=== PATIENT | male | born 1950 | race Caucasian/White ===

== ENCOUNTER 2020-01-12 13:06 | Outpatient (REF) | payer MEDICARE, OTHER, SELFPAY | END 2020-01-12 13:07 | disposition home or self-care (01) | LOC: HO.LAB 13:06 | PROVIDERS: Visit Provider Internal Medicine | DX: Z20.828 Contact with and (suspected) exposure to other viral communicable diseases (principal) | CPT/HCPCS: C9803; U0003 ==

== ENCOUNTER 2020-03-31 15:11 | Outpatient (REF) | payer MEDICARE, OTHER, SELFPAY ==
[2020-03-31 17:00] LABS: Uric Acid 9.2 mg/dL (3.4-7.0)
[2020-03-31 17:45] LABS: Erythrocyte Sedimentation Rate 25 MM/HR (0-15)
== END 2020-03-31 15:12 | disposition home or self-care (01) ==
LOC: HO.HMGCLDS 15:11
PROVIDERS: PCP Physician Assistant; Visit Provider Podiatrist
DX: M10.072 Idiopathic gout, left ankle and foot (principal)
CPT/HCPCS: 36415; 84550; 85652

== ENCOUNTER 2020-09-21 08:23 | Outpatient (REF) | payer MEDICARE, OTHER, SELFPAY ==
--- NOTE | ~2020-09-21 | US_ITS ---
EXAMINATION: US RETROPERITONEAL LIMITED (AORTA) CLINICAL INFORMATION: Screening for cardiovascular disorders. COMPARISON: None. TECHNIQUE: Grayscale, color Doppler and spectral Doppler evaluation of the abdominal aorta. FINDINGS: The aorta is normal. The measurements of the aorta in maximum AP and transverse dimensions respectively are as follows: PROXIMAL: 2.4 x 2.3 cm. MID: 1.5 x 1.2 cm. DISTAL: 1.6 x 1.5 cm. PSV: 154 The measurements of the common iliac arteries in maximum AP dimension are as follows: RIGHT COMMON ILIAC ARTERY: 1.0 cm. LEFT COMMON ILIAC ARTERY: 1.1 cm. US/US abdominal aortic aneurysm IMPRESSION: No evidence of abdominal aortic aneurysm.
== END 2020-09-21 08:24 | disposition home or self-care (01) ==
LOC: HO.US 08:23
PROVIDERS: Visit Provider Physician Assistant
DX: Z13.6 Encounter for screening for cardiovascular disorders (principal)
CPT/HCPCS: 76706

== ENCOUNTER 2020-11-17 13:46 | Outpatient (REF) | payer MEDICARE, OTHER, SELFPAY | END 2020-11-17 13:47 | disposition home or self-care (01) | LOC: HO.LNP 13:46 | PROVIDERS: Visit Provider Internal Medicine | DX: Z20.822 Contact with and (suspected) exposure to COVID-19 (principal); J06.9 Acute upper respiratory infection, unspecified | CPT/HCPCS: U0003; U0005 ==

== ENCOUNTER 2021-01-11 09:40 | Outpatient (REF) | payer MEDICARE, OTHER, SELFPAY ==
[2021-01-11 10:50] LABS: Hematocrit 42.8 % (42.0-52.0); Hemoglobin 14.8 g/dl (14.0-18.0); Mean Corpuscular HGB Conc 34.6 g/dl (31.0-36.0); Mean Corpuscular Hemoglobin 31.8 pg (27.0-33.0); Mean Corpuscular Volume 91.8 fL (80.0-98.0); Mean Platelet Volume 9.3 fL (9.4-12.4); Platelet Count 251 X10*3/uL (160-400); Red Blood Count 4.66 X10*6/uL (4.60-5.80); Red Cell Distribution Width 12.2 % (11.0-16.0); White Blood Count 8.7 X10*3/uL (4.8-10.8)
[2021-01-11 11:00] LABS: Estimated Average Glucose 100 mg/dL; Hemoglobin A1c % 5.1 %
[2021-01-11 11:11] LABS: Microalbum/Creatinine Ratio Ur 4.6 ug/mg cr
[2021-01-11 11:28] LABS: Alanine Aminotransferase 20 U/L (0-40); Albumin Level 4.3 g/dL (3.5-5.0); Alkaline Phosphatase 87 U/L (39-117); Anion Gap 11 (12-20); Aspartate Amino Transferase 18 U/L (5-37); Bilirubin Total 0.6 mg/dL (0.0-1.0); Blood Urea Nitrogen 21 mg/dL (9-16); Calcium 9.6 mg/dL (8.4-10.2); Carbon Dioxide 26 mmol/L (22-29); Chloride 106 mmol/L (96-108); Cholesterol 122 mg/dL; Estimated Glomerular Filt Rate > 60; Glucose Fasting 98 mg/dL (60-99); HDL Cholesterol 31 mg/dL; LDL Cholesterol Calculated 63 mg/dl; Potassium 4.1 mmol/L (3.3-5.1); Sodium 139 mmol/L (135-145); Total Protein 7.2 g/dL (6.5-8.0); Triglycerides 142 mg/dL
[2021-01-11 11:36] LABS: TSH reflex Free T4 0.97 uIU/mL (0.32-4.0)
== END 2021-01-11 09:41 | disposition home or self-care (01) ==
LOC: HO.10HDL 09:40
PROVIDERS: Visit Provider Physician Assistant
DX: I10 Essential (primary) hypertension (principal); E78.5 Hyperlipidemia, unspecified
CPT/HCPCS: 36415; 80053; 80061; 82043; 83036; 84443; 85027

== ENCOUNTER → 2021-06-15 09:04 | Outpatient (REF) | payer MEDICARE, SELFPAY ==
--- NOTE | 2021-06-15 09:12 | ECG_ITS ---
Test Reason : HTN Blood Pressure : / mmHG Vent. Rate : 071 BPM Atrial Rate : 071 BPM P-R Int : 160 ms QRS Dur : 120 ms QT Int : 420 ms P-R-T Axes : 032 -41 060 degrees QTc Int : 456 ms Normal sinus rhythm Left axis deviation Right bundle branch block Abnormal ECG When compared with ECG of 01-APR-2009 03:44, Right bundle branch block is now Present Referred By: Jonathan Varghese Electronically Signed By:JOELLE JONES MD
== END ==
LOC: HO.CARD 09:04
PROVIDERS: PCP Physician Assistant; Visit Provider Physician Assistant
DX: I10 Essential (primary) hypertension (principal)
CPT/HCPCS: 93005

== ENCOUNTER 2021-12-21 09:25 | Outpatient (REF) | payer MEDICARE, SELFPAY ==
[2021-12-21 10:21] LABS: Hematocrit 41.7 % (42.0-52.0); Hemoglobin 14.1 g/dl (14.0-18.0); Mean Corpuscular HGB Conc 33.8 g/dl (31.0-36.0); Mean Corpuscular Hemoglobin 31.5 pg (27.0-33.0); Mean Corpuscular Volume 93.3 fL (80.0-98.0); Mean Platelet Volume 9.1 fL (9.4-12.4); Platelet Count 236 X10*3/uL (160-400); Red Blood Count 4.47 X10*6/uL (4.60-5.80); Red Cell Distribution Width 11.9 % (11.0-16.0)
[2021-12-21 10:39] LABS: Alanine Aminotransferase 18 U/L (0-40); Albumin Level 4.4 g/dL (3.5-5.0); Alkaline Phosphatase 92 U/L (39-117); Anion Gap 14 (12-20); Aspartate Amino Transferase 20 U/L (5-37); Bilirubin Total 0.7 mg/dL (0.0-1.0); Blood Urea Nitrogen 29 mg/dL (9-16); Calcium 9.7 mg/dL (8.4-10.2); Carbon Dioxide 25 mmol/L (22-29); Chloride 107 mmol/L (96-108); Cholesterol 132 mg/dL; Estimated Glomerular Filt Rate 53; Glucose Fasting 97 mg/dL (60-99); HDL Cholesterol 32 mg/dL; LDL Cholesterol Calculated 71 mg/dl; Potassium 4.4 mmol/L (3.3-5.1); Sodium 142 mmol/L (135-145); Total Protein 7.3 g/dL (6.5-8.0); Triglycerides 146 mg/dL
[2021-12-21 11:03] LABS: Creatinine Urine 116.15 mg/dL; Microalbum/Creatinine Ratio Ur 5.1 ug/mg cr
== END 2021-12-21 09:26 | disposition home or self-care (01) ==
LOC: HO.10HDL 09:25
PROVIDERS: Visit Provider Physician Assistant
DX: I10 Essential (primary) hypertension (principal); E78.2 Mixed hyperlipidemia
CPT/HCPCS: 36415; 80053; 80061; 82043; 85027

== ENCOUNTER 2022-03-15 09:39 | Outpatient (REF) | payer MEDICARE, SELFPAY ==
[2022-03-15 11:40] LABS: Uric Acid 8.7 mg/dL (3.4-7.0)
[2022-03-15 11:58] LABS: Erythrocyte Sedimentation Rate 30 MM/HR (0-15)
== END 2022-03-15 09:40 | disposition home or self-care (01) ==
LOC: HO.10HDL 09:39
PROVIDERS: Absent Provider Physician Assistant; Visit Provider Podiatrist
DX: M10.072 Idiopathic gout, left ankle and foot (principal)
CPT/HCPCS: 36415; 84550; 85652

== ENCOUNTER 2022-06-28 08:52 | Outpatient (REF) | payer MEDICARE, SELFPAY ==
[2022-06-28 13:49] LABS: Hematocrit 43.2 % (42.0-52.0); Hemoglobin 14.3 g/dl (14.0-18.0); Mean Corpuscular HGB Conc 33.1 g/dl (31.0-36.0); Mean Corpuscular Hemoglobin 31.4 pg (27.0-33.0); Mean Corpuscular Volume 94.7 fL (80.0-98.0); Mean Platelet Volume 9.5 fL (9.4-12.4); Platelet Count 236 X10*3/uL (160-400); Red Blood Count 4.56 X10*6/uL (4.60-5.80); Red Cell Distribution Width 12.3 % (11.0-16.0); White Blood Count 7.5 X10*3/uL (4.8-10.8)
[2022-06-28 14:17] LABS: Alanine Aminotransferase 30 U/L (0-40); Albumin Level 4.2 g/dL (3.5-5.0); Alkaline Phosphatase 97 U/L (39-117); Anion Gap 14 (12-20); Aspartate Amino Transferase 26 U/L (5-37); Bilirubin Total 1.2 mg/dL (0.0-1.0); Blood Urea Nitrogen 25 mg/dL (9-16); Carbon Dioxide 26 mmol/L (22-29); Chloride 108 mmol/L (96-108); Cholesterol 138 mg/dL; Estimated Glomerular Filt Rate 58; Glucose Fasting 92 mg/dL (60-99); HDL Cholesterol 32 mg/dL; LDL Cholesterol Calculated 67 mg/dl; Potassium 4.8 mmol/L (3.3-5.1); Sodium 143 mmol/L (135-145); Total Protein 7.2 g/dL (6.5-8.0); Triglycerides 196 mg/dL
[2022-06-28 14:36] LABS: TSH reflex Free T4 0.99 uIU/mL (0.32-4.0)
== END 2022-06-28 08:53 | disposition home or self-care (01) ==
LOC: HO.10HDL 08:52
PROVIDERS: Visit Provider Physician Assistant
DX: I10 Essential (primary) hypertension (principal); E78.2 Mixed hyperlipidemia
CPT/HCPCS: 36415; 80053; 80061; 84443; 85027

== ENCOUNTER 2022-10-02 08:05 | Outpatient (AMB) | payer MEDICARE, SELFPAY ==
--- NOTE | 2022-10-02 08:34 | AM.OFFWIN_ITS ---
Intake Vital Signs 10/02/22 08:37 Height 5 ft 9 in BP 140/62 H Blood Pressure Location Lt brachial Position Sitting Pulse 80 Pulse Source Pulse Oximeter Temp 97.8 F Temp Source Temporal Artery Scan Pulse Oximetry (%) 98 Oxygen Delivery Method Room Air Intake Visit Reasons: EP ?ear/sinus infection (lobby) Intake Note: Pt is here c/o cold symptoms. Pt has c/o ear discomfort, stuffy nose, and congestion. Patient Tobacco Use Status: Never used Tobacco Allergies No Known Allergies Allergy (Verified 10/02/22 08:56) Medication List - Last Reconciled 10/02/22 by Cristian Sanchez MD atorvastatin 40 mg PO DAILY 90 days carvedilol 6.25 mg PO BID cholecalciferol (vitamin D3) 50 mcg PO DAILY lisinopril 40 mg PO DAILY 90 days omeprazole 20 mg PO DAILY triamterene-hydrochlorothiazid 37.5-25 mg 1 cap PO DAILY 90 days verapamil ER 240 mg PO DAILY HPI EP ?ear/sinus infection (lobby) HPI Details 72-year-old male presents to the office for a sick visit. Patient presents with symptoms of sore throat, postnasal drip and left ear congestion. He also is unable to hear from the right ear. [facility] Medical History Gout Surgical History History of cholecystectomy Family History Father No problems noted. Mother No problems noted. 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 Tympanic membrane not visualized. Head: Yes normal to inspection Eyes General: appearance normal, both eyes and all related structures Neck Neck: Yes normal visual inspection Chest Chest palpation & inspection: normal palpation of entire chest wall Resp Effort & Inspection: normal respiratory effort Neuro General: patient oriented x3 Office Procedures Cerumen Removal From which ear canal was the cerumen removed: bilateral Removal: irrigation and cerumen loop/spoon Notes: patient tolerated procedure well [id number] Wax Removal by Spoon/Curette Assessment & Plan Assessment & Plan (1) Upper respiratory tract infection: Code(s): J06.9 - Acute upper respiratory infection, unspecified Plan: Increase fluid intake. Tylenol for aches and pains. If symptoms worsen, follow-up here for a recheck. Flonase added to the regimen. No antibiotics needed. Patient tolerated the ear cleaning procedure well. Orders: Orders AMB Cerumen Removal Today H61.23 - Impacted cerumen, bilateral Coding Level of Care Code Est Pt Level 3 (75252) Diagnoses Upper respiratory tract infection J06.9 CPT Codes Office Procedure - CPT: 24144-Bbg Wax Removal by Spoon/Curette ([id number])
[2022-10-02 08:37] VITALS: BP 140/62; PULSE 80; TEMP 36.6; O2SAT 98
== END 2022-10-02 10:00 | disposition home or self-care (01) ==
PROVIDERS: PCP Physician Assistant; Visit Provider Internal Medicine
DX: J06.9 Acute upper respiratory infection, unspecified (principal); H61.23 Impacted cerumen, bilateral
CPT/HCPCS: 69210; 99213

== ENCOUNTER 2022-10-11 08:23 | Outpatient (AMB) | payer MEDICARE, SELFPAY ==
--- NOTE | 2022-10-11 08:27 | MHC.OFFWIV ---
Intake Vital Signs 10/11/22 08:31 Weight 170 lb BP 140/80 H Blood Pressure Location Rt brachial Pulse 74 Pulse Source Pulse Oximeter Temp 97.8 F Temp Source Temporal Artery Scan Pulse Oximetry (%) 98 Oxygen Delivery Method Room Air Intake Visit Reasons: EP, Cough, Congestion (masked) Intake Note: Patient here because he came in last week with same symptoms. He has a cough, slight chest congestion, raspy voice. Patient Tobacco Use Status: Never used Tobacco Allergies No Known Allergies Allergy (Verified 10/11/22 08:45) Medication List - Last Reconciled 10/11/22 by Cristian Sanchez MD atorvastatin 40 mg PO DAILY 90 days azithromycin take 500 mg today (day 1), then 250 mg for 4 days (days 2-5) PO carvedilol 6.25 mg PO BID cholecalciferol (vitamin D3) 50 mcg PO DAILY lisinopril 40 mg PO DAILY 90 days omeprazole 20 mg PO DAILY triamterene-hydrochlorothiazid 37.5-25 mg 1 cap PO DAILY 90 days verapamil ER 240 mg PO DAILY Do you need a note to return to daycare/school/sports/work: No HPI EP, Cough, Congestion (masked) HPI Details Patient presents for a sick visit. Reporting symptoms of sinus congestion, sore throat and difficulty swallowing. Low-grade fever. No family member is sick. No recent travel. Patient reports symptoms of malaise and fatigue. [facility] Medical History Gout Surgical History History of cholecystectomy Family History Father No problems noted. Mother No problems noted. 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 Cognitive needs: No Hearing needs: No Vision needs: Yes Physical Exam Vital Signs: Last Vital Signs Temp 97.8 F 10/11/22 08:31 Pulse 74 10/11/22 08:31 BP 140/80 H 10/11/22 08:31 Pulse Ox 98 10/11/22 08:31 Oxygen Delivery Method Room Air 10/11/22 08:31 Const General: cooperative and healthy appearing Nutritional Appearance: well nourished Orientation/consciousness: patient oriented x3 Limitations: no limitations HEENT Head: Yes normal to inspection Eyes General: appearance normal, both eyes and all related structures Neck Neck: Yes normal visual inspection Chest Chest palpation & inspection: normal palpation of entire chest wall Resp Effort & Inspection: normal respiratory effort Neuro General: patient oriented x3 Assessment & Plan Assessment & Plan (1) Upper respiratory tract infection: Code(s): J06.9 - Acute upper respiratory infection, unspecified Plan: Antibiotics ordered. Increase fluid intake. Tylenol for aches and pains. If symptoms worsen, follow-up here for a recheck. Medications: New azithromycin take 500 mg today (day 1), then 250 mg for 4 days (days 2-5) PO 6 tabs 0RF Coding Level of Care Code Est Pt Level 3 (61448) Diagnoses Upper respiratory tract infection J06.9
[2022-10-11 08:31] VITALS: BP 140/80; PULSE 74; TEMP 36.6; O2SAT 98
== END 2022-10-11 09:21 | disposition home or self-care (01) ==
PROVIDERS: PCP Physician Assistant; Visit Provider Internal Medicine
DX: J06.9 Acute upper respiratory infection, unspecified (principal)
CPT/HCPCS: 99213

== ENCOUNTER 2022-10-24 08:34 | Outpatient (AMB) | payer MEDICARE, SELFPAY ==
--- NOTE | 2022-10-24 09:03 | AM.OFFWIN_ITS ---
Intake Vital Signs 10/24/22 09:04 Height 5 ft 9 in Weight 75.75 kg BMI 24.7 BP 130/60 Blood Pressure Location Rt brachial Position Sitting Pulse 75 Pulse Source Pulse Oximeter Temp 96.9 F Pulse Oximetry (%) 96 Oxygen Delivery Method Room Air Intake Visit Reasons: EST/cough/chest alfonzo/3 weeks(masked lobby) Intake Note: Pt is here c/o bad cough, chest congestion for the last three weeks. Patient Tobacco Use Status: Never used Tobacco Allergies No Known Allergies Allergy (Verified 10/24/22 09:06) Do you need a note to return to daycare/school/sports/work: No HPI HPI Comments History of Present Illness Details 925 72-year-old male history of hyperlipidemia, hypertension, gout presenting with productive cough, fatigue, malaise, myalgias for past 2-3 weeks worsening. Patient reports it seems to not be going away, NIH is lingering. Patient took a z pack a few weeks ago w/ little to no relief. Reports subjective chills common no fevers. Denies chest pain, shortness of breath, nausea, vomiting, abdominal pain, headache, vision changes, dizziness, weakness. at home sick w/ similar sx Physical exam significant for reath sounds with faint crackles to right lower lobe.? Slight expiratory wheezing bilaterally This is likely bronchitis versus upper respiratory infection. Unlikely PE, pneumonia, ACS, no signs of dissection Plan antibiotics, prednisone, albuterol. Educated patient on diagnosis and treatment plan, answered all question, patient verbalizes understanding. At this time patient will be discharged home, advised to return with new or worsening symptoms. Educated on worrisome signs and symptoms and when to return. At this time I feel comfortable discharge home. [facility] Medical History Gout Surgical History History of cholecystectomy Family History Father No problems noted. Mother No problems noted. 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 Cognitive needs: No Hearing needs: No Vision needs: Yes Review of Systems Const Details: Constitutional : No Weight loss, No Fever, No Chills, + Fatigue, + Malaise ENT/Mouth : No sore throat, No Rhinorrhea Eyes: No Eye Pain, No Swelling, No Redness Cardiovascular : No Chest Pain, No SOB, No Dyspnea on Exertion, No Orthopnea, No Edema, No Palpitations Respiratory : + Cough, + Sputum, No Wheezing Gastrointestinal : No Nausea, No Vomiting, No Diarrhea, No Constipation, No abdominal Pain, No Hematochezia, No Melena Genitourinary : No Dysuria, No Urinary Frequency, No Hematuria, Musculoskeletal : No joint pain, No Myalgias, No Joint Swelling Skin : No Skin Lesions, No rash Neuro : No Weakness, No Numbness, No Dizziness, No Headache Psych : No Anxiety/Panic, No Depression All other systems reviewed and are negative All systems reviewed & are unremarkable except as noted in HPI and below Physical Exam Vital Signs: Last Vital Signs Temp 96.9 F 10/24/22 09:04 Pulse 75 10/24/22 09:04 BP 130/60 10/24/22 09:04 Pulse Ox 96 10/24/22 09:04 Oxygen Delivery Method Room Air 10/24/22 09:04 BMI result Body Mass Index 24.7 Vital signs stable Appearance: Alert.? Oriented X3.? No acute distress.? Head: Normocephalic, atraumatic, no step-offs or deformities Eyes: Pupils equal, round and reactive to light.? ENT: Pharynx normal.? Moderate not cerumen in bilateral ears however not completely impacted. No pain with manipulation of external ears bilaterally. No mastoid tenderness. Neck: Normal inspection.? Neck supple.? CVS: Normal heart rate and rhythm.? Pulses normal.? Respiratory: No respiratory distress.? Breath sounds with faint crackles to right lower lobe.? Slight expiratory wheezing bilaterally Abdomen: Soft and nontender.? Skin: Skin warm and dry.? Normal skin color.? Normal skin turgor.? Extremities: No lower extremity edema.? No calf ttp. 5/5 strength to bilateral upper and lower extremities Neuro: Oriented X 3.? No motor deficit.? No sensory deficit. CN 2-12 intact Assessment & Plan Assessment & Plan (1) Bronchitis: Code(s): J40 - Bronchitis, not specified as acute or chronic Plan Take your medications as prescribed. If you were prescribed antibiotics today, it is important that you take your medication to their entirety, do not skip any doses, do not finish them early. Follow-up with your primary care provider this week. Return to the emergency department with new or worsening symptoms. Such as fevers, chills, chest pain, shortness of breath, nausea, vomiting, dizziness, headache, vision changes, lethargy In case of emergency call 911 Orders: Orders SARS-CoV2/FLU/RSV Today B34.9 - Viral infection, unspecified Medications: New prednisone 40 mg (2 x 20 mg) PO DAILY 5 days 10 tabs 0RF doxycycline hyclate 100 mg PO BID 7 days 14 caps 0RF albuterol sulfate 90 mcg/actuation 2 puffs inhalation Q6H PRN 6.7 grams 0RF shortness of breath or wheezing Coding Level of Care Code Est Pt Level 3 (02847) Diagnoses Bronchitis J40
[2022-10-24 09:04] VITALS: BP 130/60; PULSE 75; TEMP 36.1; O2SAT 96; BMI 24.7
== END 2022-10-24 10:21 | disposition home or self-care (01) ==
PROVIDERS: PCP Physician Assistant; Visit Provider Physician Assistant
DX: J40 Bronchitis, not specified as acute or chronic (principal)
CPT/HCPCS: 99213

== ENCOUNTER 2022-10-24 09:34 | Outpatient (REF) | payer MEDICARE, SELFPAY ==
[2022-10-24 14:56] LABS: Influenza A PCR NEGATIVE (Negative); Influenza B PCR NEGATIVE (Negative); Resp Syncy Virus RNA Qual PCR NEGATIVE (Negative); SARS COV2 PCR INHOUSE POSITIVE (Negative)
== END 2022-10-24 09:35 | disposition home or self-care (01) ==
LOC: HO.LAB 09:34
PROVIDERS: Visit Provider Physician Assistant
DX: Z20.822 Contact with and (suspected) exposure to COVID-19 (principal)
CPT/HCPCS: 0241U

== ENCOUNTER 2023-01-01 09:25 | Outpatient (REF) | payer MEDICARE, SELFPAY ==
[2023-01-01 10:53] LABS: Hematocrit 41.2 % (42.0-52.0); Hemoglobin 13.9 g/dl (14.0-18.0); Mean Corpuscular HGB Conc 33.7 g/dl (31.0-36.0); Mean Corpuscular Hemoglobin 31.1 pg (27.0-33.0); Mean Corpuscular Volume 92.2 fL (80.0-98.0); Platelet Count 238 X10*3/uL (160-400); Red Blood Count 4.47 X10*6/uL (4.60-5.80); Red Cell Distribution Width 12.1 % (11.0-16.0); White Blood Count 7.4 X10*3/uL (4.8-10.8)
[2023-01-01 11:18] LABS: Alanine Aminotransferase 18 U/L (0-40); Albumin Level 4.1 g/dL (3.5-5.0); Alkaline Phosphatase 90 U/L (39-117); Anion Gap 13 (12-20); Aspartate Amino Transferase 20 U/L (5-37); Bilirubin Total 0.6 mg/dL (0.0-1.0); Blood Urea Nitrogen 18 mg/dL (9-16); Calcium 9.5 mg/dL (8.4-10.2); Carbon Dioxide 24 mmol/L (22-29); Chloride 107 mmol/L (96-108); Cholesterol 116 mg/dL (<200); Estimated Glomerular Filt Rate > 60; Glucose Fasting 102 mg/dL (60-99); HDL Cholesterol 34 mg/dL (>40); LDL Cholesterol Calculated 60 mg/dL (<100); Potassium 3.9 mmol/L (3.3-5.1); Sodium 140 mmol/L (135-145); Total Protein 7.3 g/dL (6.5-8.0); Triglycerides 112 mg/dL (<150)
[2023-01-01 11:21] LABS: Creatinine Urine 160.92 mg/dL; Microalbum/Creatinine Ratio Ur 6.8 ug/mg cr (<30)
== END 2023-01-01 09:26 | disposition home or self-care (01) ==
LOC: HO.10HDL 09:25
PROVIDERS: Visit Provider Physician Assistant
DX: I10 Essential (primary) hypertension (principal); E78.2 Mixed hyperlipidemia
CPT/HCPCS: 36415; 80053; 80061; 82043; 82570; 85027

== ENCOUNTER 2023-01-04 14:42 | Outpatient (AMB) | payer MEDICARE, SELFPAY ==
[2023-01-04 14:43] VITALS: BP 158/80; PULSE 59; O2SAT 68; BMI 24.5
--- NOTE | 2023-01-04 14:43 | A.OFFPC_ITS ---
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 Accompanied by: Self / Same As Patient Allergies No Known Allergies Allergy (Verified 01/04/23 14:56) Medication List - Last Reconciled 01/04/23 by Jonathan Varghese PA-C atorvastatin 40 mg PO DAILY 90 days carvedilol 6.25 mg PO BID cholecalciferol (vitamin D3) 50 mcg PO DAILY lisinopril 40 mg PO DAILY 90 days omeprazole 20 mg PO DAILY triamterene-hydrochlorothiazid 37.5-25 mg 1 cap PO DAILY 90 days verapamil ER 240 mg PO DAILY Tobacco use date assessed: 06/29/22 Fall risk assessment: No Falls in past year Last assessed Fall Risk: 01/04/23 Dental Screening Dental Screen Date: 01/04/23 Did you have a dental visit in the last 12 months?: Yes Did you have a dental problem in the last 6 months where you did not have access to dental care?: No Was dental information given to patient?: Patient has dentist HPI f/u HTN/ HLD HPI Details Patient is a 72-year-old male here today for follow-up visit.? Patient has a past medical history significant for hypertension, hyperlipidemia, family history of coronary artery disease, BPH. Concern--> reports he has been under more stress and dealing with more depression as of late due to recent use his being diagnosed with stage I dementia. He is contemplating being treated for depression with a low-dose medication though at this time will hold off and try nonpharmacological . Hypertension:? Blood pressure elevated today in office. He reports that home blood pressures are quite stable. He does have an element of white coat hypertension.? Denies any headaches, vision issues, chest discomforts .. BPH:? Patient is followed by Urology and gets his PSA checked any yearly basis.? Recent PSA slightly higher than previous. He does report having history benign microscopic hematuria .. Hyperlipidemia:? Patient's most recent lipid panels showing acceptable total cholesterol and LDL.? Continues to have low HDL.? He reports he continues to r li his bike as his main form of physical activity.? Continues on statin therapy without side effect . Laboratory Tests 01/01/23 09:30 RBC 4.47 L Hgb 13.9 L Creatinine 1.08 Fasting Glucose 102 H Cholesterol 116 LDL Cholesterol, C alc 60 Urine Microalbumin 11.0 [facility] Medical History Gout Surgical History History of cholecystectomy Family History Father No problems noted. Mother No problems noted. 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 Marky Giles, Helene Beebe, Kong Simpson and colleagues, with an educational sweetie from [employer]. Review of Systems Const Denies headache(s) Eyes Denies loss of vision ENT Denies vertigo, Denies dizziness, Denies headache(s) and Denies sore throat Card Denies chest pain, Denies leg edema and Denies lightheadedness Resp Denies cough, Denies hemoptysis and Denies wheezing GI Denies abdominal pain, Denies melena, Denies constipation, Denies diarrhea and Denies vomiting Denies dysuria, Denies urinary frequency and Denies urinary urgency Musc Denies arthralgias, Denies joint swelling, Denies numbness and Denies tingling Neuro Denies Abnormal speech present, Denies behavioral changes, Denies vertigo, Denies dizziness, Denies headache(s), Denies loss of vision, Denies memory loss, Denies numbness and Denies tingling Psych Denies anxiety, Denies behavioral changes, Denies depression, Denies memory loss and Denies panic attacks Frankie/Lymph Denies easy bleeding and Denies easy bruising Aller/Immun Denies wheezing Physical exam (Primary Care) Vital Signs: Last Vital Signs Pulse 59 01/04/23 14:43 BP 158/80 H 01/04/23 14:43 Pulse Ox 68 L 01/04/23 14:43 Oxygen Delivery Method Room Air 01/04/23 14:43 BMI result Body Mass Index 24.5 Tobacco/Smoking Status: Tobacco use Status Tobacco use date assessed 06/29/22 01/04/23 14:44 Patient Tobacco Use Status Never used Tobacco 01/04/23 14:44 e-Cigarette/Vaping Use Never Used 01/04/23 14:44 Thrive Assessment: Date of Thrive Assessment Date Thrive assessed 06/29/22 01/04/23 14:44 Const General: healthy appearing, no acute distress, alert and awake Nutritional Appearance: well nourished Orientation/consciousness: oriented to person, oriented to place and oriented to time HENMT Ears: TM's normal bilaterally General nose exam: Normal nasal mucous membranes and turbinates present Eyes Conjunctivae: conjunctivae normal Sclerae: sclerae normal Pupils: Equal, round and reactive pupils present Neck Neck: Yes no lymphadenopathy and Yes no JVD Thyroid: Thyroid normal Carotids: no bruits Resp Effort & Inspection: normal respiratory effort and not tachypneic Auscultation: no crackles, no rales, no rhonchi and no wheezes Cardio Rate: regular rate Rhythm: regular rhythm Heart sounds: no murmurs and normal S1 and S2 GI Palpation (GI): Soft to palpation, nontender, no hepatomegaly and no splenomegaly Auscultation: normal bowel sounds Skin General skin exam: no rashes or lesions noted and dry skin Neuro General: oriented to person, oriented to place and oriented to time Cranial nerves: Yes Equal, round and reactive pupils present Speech: No Abnormal speech present Gait exam (Neuro): Normal gait present Motor exam (neuro): no tremor noted Extrem Right upper extremity: full ROM Left upper extremity: full ROM Right lower extremity: full ROM; no edema Left lower extremity: full ROM; no edema Psych Mental Status: mental status grossly normal Speech and movement: Normal speech and movement present Affect: normal affect Attitude: cooperative Thought process: Normal thought process present Assessment and Plan Assessment & Plan (1) HLD (hyperlipidemia): Code(s): E78.5 - Hyperlipidemia, unspecified Qualifiers: Hyperlipidemia type: mixed hyperlipidemia Qualified Code(s): E78.2 - Mixed hyperlipidemia Plan: Patient continues on statin therapy with good effect. Most recent lipid panel showing appropriate LDL and total cholesterol. Goal LDL to be below 130. (2) HTN (hypertension): Code(s): I10 - Essential (primary) hypertension Qualifiers: Hypertension type: essential hypertension Qualified Code(s): I10 - Essential (primary) hypertension Plan: Patient's blood pressure elevated today in office. He has been dealing with some anxiety and depression due to recent news his has stage I dementia.. Will continue his antihypertensive med regime for now, advised to monitor blood pressure at home over the next few weeks and if still elevated over 140/90 will consider increasing blood pressure medication doses.. Goal blood to be below 140/90. (3) CHAPARRO (generalized anxiety disorder): Code(s): F41.1 - Generalized anxiety disorder Plan: Seems to be suffering with anxiety and some depression. He does recall having melancholic moods over his life. Has never been treated for anxiety depression. At this time will hold off on starting medication, will follow-up in 6 weeks and if still exhibiting signs of anxiety depression will consider low-dose SSRI. Orders: Orders Lipid Panel 6 Months E78.2 - Mixed hyperlipidemia Microalbumin, Random (w Creat) 6 Months I10 - Essential (primary) hypertension Prostate Specific Antigen Scr 6 Months I10 - Essential (primary) hypertension, Z12.5 - Encounter for screening for malignant neoplasm of prostate Comprehensive [place]. Panel Fast 6 Months I10 - Essential (primary) hypertension Coding Level of Care Code Est Pt Level 4 (47637) Diagnoses Mixed hyperlipidemia E78.2 Hyperlipidemia type: mixed hyperlipidemia Essential hypertension I10 Hypertension type: essential hypertension CHAPARRO (generalized anxiety disorder) F41.1
== END 2023-01-04 15:27 | disposition home or self-care (01) ==
PROVIDERS: Visit Provider Physician Assistant
DX: E78.2 Mixed hyperlipidemia (principal); I10 Essential (primary) hypertension; F41.1 Generalized anxiety disorder
CPT/HCPCS: 99214

== ENCOUNTER 2023-01-23 08:01 | Outpatient (AMB) | payer MEDICARE, SELFPAY ==
--- NOTE | 2023-01-23 08:06 | AM.OFFWIN_ITS ---
Intake Vital Signs 01/23/23 08:08 Height 5 ft 9 in Weight 167 lb BMI 24.7 BP 138/62 Blood Pressure Location Lt brachial Pulse 76 Pulse Source Pulse Oximeter Temp 97.8 F Temp Source Oral Pulse Oximetry (%) 98 Oxygen Delivery Method Room Air Intake Visit Reasons: EST/stomach bug(lobby masked) Intake Note: Pt is here today c/o diarrhea and nausea x3days no vomiting Patient Tobacco Use Status: Never used Tobacco Allergies No Known Allergies Allergy (Verified 01/23/23 08:19) Medication List - Last Reconciled 01/23/23 by Cristian Sanchez MD atorvastatin 40 mg PO DAILY 90 days carvedilol 6.25 mg PO BID cholecalciferol (vitamin D3) 50 mcg PO DAILY lisinopril 40 mg PO DAILY 90 days omeprazole 20 mg PO DAILY triamterene-hydrochlorothiazid 37.5-25 mg 1 cap PO DAILY 90 days verapamil ER 240 mg PO DAILY HPI EST/stomach bug(lobby masked) HPI Details 72-year-old male presents to the office for a sick visit. Patient has history of gout and was recently started on colchicine, indomethacin and allopurinol. The pain symptoms in the fingers have resolved. He is having diarrhea since he started the above medications. Non cramping in nature. Going to the bathroom 3 to 4 times a day. No episodes at night. [facility] Medical History Gout Surgical History History of cholecystectomy Family History Father No problems noted. Mother No problems noted. 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 Cognitive needs: No Hearing needs: No Vision needs: Yes Physical Exam Vital Signs: Last Vital Signs Temp 97.8 F 01/23/23 08:08 Pulse 76 01/23/23 08:08 BP 138/62 01/23/23 08:08 Pulse Ox 98 01/23/23 08:08 Oxygen Delivery Method Room Air 01/23/23 08:08 BMI result Body Mass Index 24.7 Const General: cooperative and healthy appearing Nutritional Appearance: well nourished Orientation/consciousness: patient oriented x3 Limitations: no limitations HEENT Head: Yes normal to inspection Eyes General: appearance normal, both eyes and all related structures Neck Neck: Yes normal visual inspection Chest Chest palpation & inspection: normal palpation of entire chest wall Resp Effort & Inspection: normal respiratory effort Neuro General: patient oriented x3 Assessment & Plan Assessment & Plan (1) Diarrhea: Code(s): R19.7 - Diarrhea, unspecified Plan: Symptoms are due to colchicine. I advised the patient to discontinue all the medications. Reassurance and increase fluid. Should symptoms not subside, I encouraged the patient to return here for a recheck. Patient verbally understanding. Coding Level of Care Code Est Pt Level 3 (07067) Diagnoses Diarrhea R19.7
[2023-01-23 08:08] VITALS: BP 138/62; PULSE 76; TEMP 36.6; O2SAT 98; BMI 24.7
== END 2023-01-23 08:37 | disposition home or self-care (01) ==
PROVIDERS: PCP Physician Assistant; Visit Provider Internal Medicine
DX: R19.7 Diarrhea, unspecified (principal)
CPT/HCPCS: 99213

== ENCOUNTER 2023-02-14 13:46 | Outpatient (AMB) | payer MEDICARE, SELFPAY ==
[2023-02-14 13:53] VITALS: BP 140/70; PULSE 66; RESP 17; O2SAT 97; BMI 24.3
--- NOTE | 2023-02-14 13:53 | MHC.PC.OV ---
Vital Signs 02/14/23 13:53 Height 5 ft 9 in Weight 164 lb 6 oz BMI 24.3 BP 140/70 H Blood Pressure Location Lt brachial Position Sitting Respiration 17 Pulse 66 Pulse Source Pulse Oximeter Pulse Oximetry (%) 97 Oxygen Delivery Method Room Air Intake Visit Reasons: f/u depression/ Anxiety ( okay to double book) Chief Of Surgery Required: No Accompanied by: Self / Same As Patient Allergies colchicine Adverse Reaction (Mild, Verified 02/14/23 14:26) Diarrhea Medication List - Last Reconciled 02/14/23 by Jonathan Varghese PA-C allopurinol 300 mg PO DAILY atorvastatin 40 mg PO DAILY 90 days carvedilol 6.25 mg PO BID cholecalciferol (vitamin D3) 50 mcg PO DAILY lisinopril 40 mg PO DAILY 90 days omeprazole 20 mg PO DAILY triamterene-hydrochlorothiazid 37.5-25 mg 1 cap PO DAILY 90 days verapamil ER 240 mg PO DAILY Tobacco use date assessed: 06/29/22 Fall risk assessment: No Falls in past year Last assessed Fall Risk: 02/14/23 Dental Screening Dental Screen Date: 02/14/23 Did you have a dental visit in the last 12 months?: Yes Did you have a dental problem in the last 6 months where you did not have access to dental care?: No Was dental information given to patient?: Patient has dentist HPI f/u depression/ Anxiety ( okay to double book) HPI Details Patient is a 72-year-old male here today for a follow-up visit. At last visit we discussed his anxiety and depression. He was having some family issues as his has been diagnosed with dementia and has been trying to take care of her. We did discuss starting mental health medication though at the time he wanted to hold off. Also reports developing gout over his right finger. Was seen by orthopedic in [place] was prescribed allopurinol , colchicine and indomethacin. Developed diarrhea to colchicine Does have chronic history of gout in his foot to which he uses similar medication. [facility] Medical History Gout Surgical History History of cholecystectomy Family History Father No problems noted. Mother No problems noted. 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 1. Little interest or pleasure in doing things: not at all 2. Feeling down, depressed, or hopeless: several days 3. Trouble falling or staying asleep, or sleeping too much: not at all 4. Feeling tired or having little energy: not at all 5. Poor appetite or overeating: not at all 6. Feeling bad about yourself - or that you are a failure or have let yourself or your family down: not at all 7. Trouble concentrating on things, such as reading the newspaper or watching television: not at all 8. Moving or speaking so slowly that other people could have noticed. Or the opposite - being so fidgety or restless that you have been moving around a lot more than usual: not at all 9. Thoughts that you would be better off or of hurting yourself in some way: not at all Total score: 1 Depression Screening Interpretation: Negative Depression Screening Done: Yes 44818 - PHQ-9 Billing: Yes Source: Developed by Drs. Marky Giles, Helene Beebe, Kong Simpson and colleagues, with an educational sweetie from [employer]. Thrive Questionnaire Date Thrive assessed: 06/29/22 CHAPARRO-7 AMB Questionnaire CHAPARRO-7 Date CHAPARRO - 7 assessed: 02/14/23 Feeling nervous, anxious, or on edge: 2 = More than half the days Not being able to stop or control worryin = More than half the days Worrying too much about different things: 2 = More than half the days Trouble relaxin = More than half the days Being so restless that it is hard to sit still: 1 = Several days Becoming easily annoyed or irritable: 1 = Several days Feeling afraid as if something awful might happen: 1 = Several days Total CHAPARRO-7 score (0-4 normal; 5-9 mild; 10-14 moderate; 15-21 severe): 11 Source: Developed by Drs. Marky Giles, Helene Beebe, Kong Simpson and colleagues, with an educational sweetie from [employer]. CHAPARRO-7 Assessment Billing CHAPARRO-7 Assessment Tool: CHAPARRO-7 Assessment 15256 Review of Systems Const Denies headache(s) Eyes Denies loss of vision ENT Denies vertigo, Denies dizziness, Denies headache(s) and Denies sore throat Card Denies chest pain, Denies leg edema and Denies lightheadedness Resp Denies cough, Denies hemoptysis and Denies wheezing GI Denies abdominal pain, Denies melena, Denies constipation, Denies diarrhea and Denies vomiting Denies dysuria, Denies urinary frequency and Denies urinary urgency Musc Denies arthralgias, Denies joint swelling, Denies numbness and Denies tingling Neuro Denies Abnormal speech present, Denies behavioral changes, Denies vertigo, Denies dizziness, Denies headache(s), Denies loss of vision, Denies memory loss, Denies numbness and Denies tingling Psych Denies anxiety, Denies behavioral changes, Denies depression, Denies memory loss and Denies panic attacks Frankie/Lymph Denies easy bleeding and Denies easy bruising Aller/Immun Denies wheezing Physical exam (Primary Care) Vital Signs: Last Vital Signs Pulse 66 02/14/23 13:53 Resp 17 02/14/23 13:53 BP 140/70 H 02/14/23 13:53 Pulse Ox 97 02/14/23 13:53 Oxygen Delivery Method Room Air 02/14/23 13:53 BMI result Body Mass Index 24.3 Tobacco/Smoking Status: Tobacco use Status Tobacco use date assessed 06/29/22 02/14/23 14:02 Patient Tobacco Use Status Never used Tobacco 02/14/23 14:02 e-Cigarette/Vaping Use Never Used 02/14/23 14:02 PHQ-9: PHQ-9 Score PHQ-9: Total score 1 02/14/23 14:02 Depression Screening Interpretation: Negative Thrive Assessment: Date of Thrive Assessment Date Thrive assessed 06/29/22 02/14/23 14:02 Const General: healthy appearing, no acute distress, alert and awake Nutritional Appearance: well nourished Orientation/consciousness: oriented to person, oriented to place and oriented to time HENMT Ears: TM's normal bilaterally General nose exam: Normal nasal mucous membranes and turbinates present Eyes Conjunctivae: conjunctivae normal Sclerae: sclerae normal Pupils: Equal, round and reactive pupils present Neck Neck: Yes no lymphadenopathy and Yes no JVD Thyroid: Thyroid normal Carotids: no bruits Resp Effort & Inspection: normal respiratory effort and not tachypneic Auscultation: no crackles, no rales, no rhonchi and no wheezes Cardio Rate: regular rate Rhythm: regular rhythm Heart sounds: no murmurs and normal S1 and S2 GI Palpation (GI): Soft to palpation, nontender, no hepatomegaly and no splenomegaly Auscultation: normal bowel sounds Skin General skin exam: no rashes or lesions noted and dry skin Neuro General: oriented to person, oriented to place and oriented to time Cranial nerves: Yes Equal, round and reactive pupils present Speech: No Abnormal speech present Gait exam (Neuro): Normal gait present Motor exam (neuro): no tremor noted Extrem Right upper extremity: full ROM Left upper extremity: full ROM Right lower extremity: full ROM; no edema Left lower extremity: full ROM; no edema Psych Mental Status: mental status grossly normal Speech and movement: Normal speech and movement present Affect: normal affect Attitude: cooperative Thought process: Normal thought process present Assessment and Plan Assessment & Plan (1) CHAPARRO (generalized anxiety disorder): Code(s): F41.1 - Generalized anxiety disorder Plan: Seems to be suffering with anxiety and some depression. Patient's CHAPARRO-7 score positive for moderate anxiety which has been existing condition for him. He has been doing little better. He is not interested in mental health medications. 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 He believes he has a supportive family as well. (2) Gout: Comment: 40 min reviewing chart evaluating patient and documenting Code(s): M10.9 - Gout, unspecified Qualifiers: Gout site: foot Gout etiology: idiopathic Chronicity: chronic Laterality: right Presence of tophus: without tophus Qualified Code(s): M1A.0710 - Idiopathic chronic gout, right ankle and foot, without tophus (tophi) Plan: He has recently developed what seems to be gout in his right pointer finger. Has been started on alopecia in all and indomethacin. Coding Level of Care Code Est Pt Level 3 (92876) Diagnoses CHAPARRO (generalized anxiety disorder) 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 Gout site: foot Gout etiology: idiopathic Chronicity: chronic Laterality: right Presence of tophus: without tophus Additional Codes CHAPARRO-7 Assessment Billing - CHAPARRO-7 Assessment Tool: CHAPARRO-7 Assessment [id number] ([id number])
== END 2023-02-14 14:33 | disposition home or self-care (01) ==
PROVIDERS: PCP Physician Assistant; Visit Provider Physician Assistant
DX: F41.1 Generalized anxiety disorder (principal); M1A.0710 Idiopathic chronic gout, right ankle and foot, without tophus (tophi)
CPT/HCPCS: 99213

== ENCOUNTER 2023-05-23 08:03 | Outpatient (AMB) | payer MEDICARE, SELFPAY ==
[2023-05-23 08:07] VITALS: BP 120/78; PULSE 87; O2SAT 98; BMI 25.0
--- NOTE | 2023-05-23 08:07 | AM.OFFWIN_ITS ---
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 and his ankle is red and swollen and painful still Patient Tobacco Use Status: Never used Tobacco Allergies colchicine Adverse Reaction (Mild, Verified 05/23/23 08:11) Diarrhea Do you need a note to return to daycare/school/sports/work: Yes HPI HPI Comments History of Present Illness Details He presents for R foot/ankle pain 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 Mother No problems noted. 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 Cognitive needs: No Hearing needs: No Vision needs: Yes Review of Systems Const Denies chills, Denies fatigue, Denies fever(s) and Denies weakness ENT Denies dizziness Musc Reports arthralgias, Reports stiffness and Denies tingling Skin/Breast Reports other (swelling R lateral ankle/foot) Neuro Denies dizziness, Denies tingling, Denies paresthesias and Denies weakness Endo Denies fatigue Physical Exam Vital Signs: Last Vital Signs Pulse 87 05/23/23 08:07 BP 120/78 05/23/23 08:07 Pulse Ox 98 05/23/23 08:07 Oxygen Delivery Method Room Air 05/23/23 08:07 BMI result Body Mass Index 25.0 General: Non-toxic, NAD. Speaking full sentences. Skin: Warm dry throughout. + edema R lateral ankle and proximal 5th metatarsal region. No erythema or ecchymosis Eye: EOMI Respiratory: No respiratory distress Cardiac: RRR. No murmur. DP pulse intact RLE MSK: + tendrness to palpation R lateral malleoli. No 5th metatarsal bone tend erness to palpation. + full ROM toes. No metatarsal bone tenderness to palpation. No R knee or proximal tib/fib tenderness Neurology: A. Psych: Good mood and affect Assessment & Plan Assessment & Plan (1) Ankle pain, right: Code(s): M25.571 - Pain in right ankle and joints of right foot Qualifiers: Chronicity: acute Qualified Code(s): M25.571 - Pain in right ankle and joints of right foot Plan: Patient seen and evaluated. I reviewed xray and negative fx He refused air cast and given MICHELLE which i applied. Rest, ice, elevate Patient gave verbal understanding and had no additional questions or concerns at time of discharge All questions answered Orders: Orders XR ankle RT min 3V Today M25.571 - Pain in right ankle and joints of right foot Coding Level of Care Code Est Pt Level 3 (61414) Diagnoses Acute right ankle pain M25.571 Chronicity: acute
== END 2023-05-23 09:06 | disposition home or self-care (01) ==
PROVIDERS: PCP Physician Assistant; Visit Provider Physician Assistant
DX: M25.571 Pain in right ankle and joints of right foot (principal)
CPT/HCPCS: 99213

== ENCOUNTER 2023-05-23 08:25 | Outpatient (REF) | payer MEDICARE, SELFPAY ==
--- NOTE | ~2023-05-23 | XR_ITS ---
EXAMINATION: XR ANKLE, RIGHT CLINICAL INFORMATION: Pain COMPARISON: None available. TECHNIQUE: AP, lateral, and mortise views of the right ankle. FINDINGS: No acute visible fracture or dislocation. Well-corticated 4 mm ossific focus inferior to the medial malleolus may reflect sequela of remote trauma versus periarticular arthritic changes. Tiny plantar calcaneal heel spur. Joint spaces and alignment are maintained. Slight soft tissue prominence along the lateral malleolus. XR/XR ankle RT min 3V IMPRESSION: 1. No acute visible fracture or dislocation. 2. Well-corticated 4 mm ossific focus inferior to the medial malleolus may reflect sequela of remote trauma versus periarticular arthritic changes. 3. Tiny plantar calcaneal heel spur. 4. Slight soft tissue prominence along the lateral malleolus.
== END 2023-05-23 08:26 | disposition home or self-care (01) ==
LOC: HO.HMGCX 08:25
PROVIDERS: PCP Physician Assistant; Visit Provider Physician Assistant
DX: M25.571 Pain in right ankle and joints of right foot (principal)
CPT/HCPCS: 73610

== ENCOUNTER 2023-05-24 13:08 | Outpatient (REF) | payer MEDICARE, SELFPAY ==
[2023-05-24 16:43] LABS: Uric Acid 8.7 mg/dL (3.4-7.0)
[2023-05-24 18:19] LABS: Erythrocyte Sedimentation Rate 80 MM/HR (0-15)
== END 2023-05-24 13:09 | disposition home or self-care (01) ==
LOC: HO.HMGCLDS 13:08
PROVIDERS: PCP Physician Assistant; Visit Provider Podiatrist
DX: M79.671 Pain in right foot (principal)
CPT/HCPCS: 36415; 84550; 85652

== ENCOUNTER 2023-05-29 11:08 | Outpatient (AMB) | payer MEDICARE, SELFPAY ==
--- NOTE | 2023-05-29 11:15 | MHC.PC.OV ---
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 Accompanied by: Self / Same As Patient Allergies colchicine Adverse Reaction (Mild, Verified 05/29/23 11:27) Diarrhea Medication List - Last Reconciled 05/29/23 by Jonathan Varghese PA-C allopurinol 300 mg PO DAILY atorvastatin 40 mg PO DAILY 90 days carvedilol 6.25 mg PO BID cholecalciferol (vitamin D3) 50 mcg PO DAILY lisinopril 40 mg PO DAILY 90 days omeprazole 20 mg PO DAILY triamterene-hydrochlorothiazid 37.5-25 mg 1 cap PO DAILY 90 days verapamil ER 240 mg PO DAILY Tobacco use date assessed: 05/29/23 Fall risk assessment: No Falls in past year Last assessed Fall Risk: 05/29/23 Dental Screening Dental Screen Date: 05/29/23 Did you have a dental visit in the last 12 months?: Yes Did you have a dental problem in the last 6 months where you did not have access to dental care?: No Was dental information given to patient?: Patient has dentist HPI gout follow up HPI Details Patient is a 72-year-old male here today for follow-up visit.? Patient has a past medical history significant for hypertension, hyperlipidemia, gout, family history of coronary artery disease, BPH. Concern--> recently seen at the walk-in clinic for an acute ankle issue, reports he sprained his ankle at work. Does have elevated uric acid levels and sed rate. Has not been regularly taking allopurinol. He has seen his diesel engine specialist who told him to while with PCP. Of note is taking triamterene -hydrochlorothiazide which could be a causal agent to his gout flares as well. He reports his diet is fairly good and low in purines. CHRONIC MEDICAL CONDITION--> . Hypertension:? Blood pressure elevated today in office. He reports that home blood pressures are quite stable. He does have an element of white coat hypertension.? Denies any headaches, vision issues, chest discomforts .. BPH:? Patient is followed by Urology and gets his PSA checked any yearly basis.? Recent PSA slightly higher than previous. He does report having history benign microscopic hematuria .. Hyperlipidemia:? Patient's most recent lipid panels showing acceptable total cholesterol and LDL.? Continues to have low HDL.? He reports he continues to ride his bike as his main form of physical activity.? Continues on statin therapy without side effect . [facility] Medical History Gout Surgical History History of cholecystectomy Family History Father No problems noted. Mother No problems noted. 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 1. Little interest or pleasure in doing things: not at all 2. Feeling down, depressed, or hopeless: not at all 3. Trouble falling or staying asleep, or sleeping too much: not at all 4. Feeling tired or having little energy: not at all 5. Poor appetite or overeating: not at all 6. Feeling bad about yourself - or that you are a failure or have let yourself or your family down: not at all 7. Trouble concentrating on things, such as reading the newspaper or watching television: not at all 8. Moving or speaking so slowly that other people could have noticed. Or the opposite - being so fidgety or restless that you have been moving around a lot more than usual: not at all 9. Thoughts that you would be better off or of hurting yourself in some way: not at all Total score: 0 Depression Screening Interpretation: Negative Depression Screening Done: Yes 18459 - PHQ-9 Billing: Yes Source: Developed by Drs. Marky Giles, Helene Beebe, Kong Simpson and colleagues, with an educational sweetie from [employer]. Thrive Questionnaire Date Thrive assessed: 05/29/23 I am a: Patient What is your living situation today?: I have a steady place to live Within the past 12 months, did the food you bought not last and you didn't have the money to get more?: Never true Within the past 12 months, did you worry whether your food would run out before you got money to buy more?: Never true Do you have trouble paying for medicines?: No Do you have trouble getting transportation to medical appointments?: No Do you have trouble paying your heating and electricity bill?: No Do you have trouble taking care of your child, family member or friend?: No Do you have trouble with day-to-day activities such as bathing, preparing meals, shopping, managing finances, etc.?: No Are you currently unemployed and looking for a job?: No Are you interested in more education?: No Please select the resources that you would like help with: None Currently or been in a relationship where the following occur: no concerns reported THRIVE Score: 0 AUDIT C Alcohol Use Questionnaire (AUDIT-C) 1. How often do you have a drink containing alcohol?: Monthly or less (10 a month) 2. How many drinks containing alcohol do you have on a typical day when you are drinking?: 1 or 2 3. How often do you have six or more drinks on one occasion?: Never Total Score: 1 CHAPARRO-7 AMB Questionnaire CHAPARRO-7 Date CHAPARRO - 7 assessed: 05/29/23 Feeling nervous, anxious, or on edge: 0 = Not at all Not being able to stop or control worryin = Not at all Worrying too much about different things: 0 = Not at all Trouble relaxin = Not at all Being so restless that it is hard to sit still: 0 = Not at all Becoming easily annoyed or irritable: 0 = Not at all Feeling afraid as if something awful might happen: 0 = Not at all Total CHAPARRO-7 score (0-4 normal; 5-9 mild; 10-14 moderate; 15-21 severe): 0 Source: Developed by Drs. Marky Giles, Helene Beebe, Kong Simpson and colleagues, with an educational sweetie from [employer]. CHAPARRO-7 Assessment Billing CHAPARRO-7 Assessment Tool: CHAPARRO-7 Assessment 78360 Review of Systems Const Denies headache(s) Eyes Denies loss of vision ENT Denies vertigo, Denies dizziness, Denies headache(s) and Denies sore throat Card Denies chest pain, Denies leg edema and Denies lightheadedness Resp Denies cough, Denies hemoptysis and Denies wheezing GI Denies abdominal pain, Denies melena, Denies constipation, Denies diarrhea and Denies vomiting Denies dysuria, Denies urinary frequency and Denies urinary urgency Musc Denies arthralgias, Denies joint swelling, Denies numbness and Denies tingling Neuro Denies Abnormal speech present, Denies behavioral changes, Denies vertigo, Denies dizziness, Denies headache(s), Denies loss of vision, Denies memory loss, Denies numbness and Denies tingling Psych Denies anxiety, Denies behavioral changes, Denies depression, Denies memory loss and Denies panic attacks Frankie/Lymph Denies easy bleeding and Denies easy bruising Aller/Immun Denies wheezing Physical exam (Primary Care) Vital Signs: Last Vital Signs Pulse 74 05/29/23 11:16 BP 154/64 H 05/29/23 11:16 Pulse Ox 98 05/29/23 11:16 Oxygen Delivery Method Room Air 05/29/23 11:16 BMI result Body Mass Index 24.7 Tobacco/Smoking Status: Tobacco use Status Tobacco use date assessed 05/29/23 05/29/23 11:17 Patient Tobacco Use Status Never used Tobacco 05/29/23 11:15 e-Cigarette/Vaping Use Never Used 05/29/23 11:15 PHQ-9: PHQ-9 Score PHQ-9: Total score 0 05/29/23 11:30 Depression Screening Interpretation: Negative Thrive Assessment: Date of Thrive Assessment Date Thrive assessed 05/29/23 05/29/23 11:26 Currently or been in a relationship where the following occur: no concerns reported Const General: healthy appearing, no acute distress, alert and awake Nutritional Appearance: well nourished Orientation/consciousness: oriented to person, oriented to place and oriented to time HENMT Ears: TM's normal bilaterally General nose exam: Normal nasal mucous membranes and turbinates present Eyes Conjunctivae: conjunctivae normal Sclerae: sclerae normal Pupils: Equal, round and reactive pupils present Neck Neck: Yes no lymphadenopathy and Yes no JVD Thyroid: Thyroid normal Carotids: no bruits Resp Effort & Inspection: normal respiratory effort and not tachypneic Auscultation: no crackles, no rales, no rhonchi and no wheezes Cardio Rate: regular rate Rhythm: regular rhythm Heart sounds: no murmurs and normal S1 and S2 GI Palpation (GI): Soft to palpation, nontender, no hepatomegaly and no splenomegaly Auscultation: normal bowel sounds Skin General skin exam: no rashes or lesions noted and dry skin Neuro General: oriented to person, oriented to place and oriented to time Cranial nerves: Yes Equal, round and reactive pupils present Speech: No Abnormal speech present Gait exam (Neuro): Normal gait present Motor exam (neuro): no tremor noted Extrem Other: RIGHT ANKLE AND FOOT SLIGHTLY EDEMATOUS. Right upper extremity: full ROM Left upper extremity: full ROM Right lower extremity: full ROM; no edema Left lower extremity: full ROM; no edema Psych Mental Status: mental status grossly normal Speech and movement: Normal speech and movement present Affect: normal affect Attitude: cooperative Thought process: Normal thought process present Assessment and Plan Assessment & Plan (1) Gout: Comment: 40 min reviewing chart evaluating patient and documenting Code(s): M10.9 - Gout, unspecified Qualifiers: Chronicity: chronic Gout etiology: idiopathic Gout site: foot Laterality: right Presence of tophus: without tophus Qualified Code(s): M1A.0710 - Idiopathic chronic gout, right ankle and foot, without tophus (tophi) Plan: Patient recently having gout flares. Could be secondary to his hydrochlorothiazide. Will stop hydrochlorothiazide. Will set patient up with prednisone taper for acute flare as he is somewhat inflamed over his right ankle and foot. After acute phase is through advised her to restart allopurinol 300 mg daily for maintenance therapy. (2) HTN (hypertension): Code(s): I10 - Essential (primary) hypertension Qualifiers: Hypertension type: essential hypertension Qualified Code(s): I10 - Essential (primary) hypertension Plan: BLOOD PRESSURE remains elevated today in office. Reports that home blood pressures usually much better. Likely element of white coat hypertension. Medications: New prednisone take 3 tabs x 3 days, take 2 tabs x 3 days , take 1 tabs x 3 days 10 mg PO DIRECTED 9 days 18 tabs 0RF M1A.0710 - Idiopathic chronic gout, right ankle and foot, without tophus (tophi) triamterene 50 mg PO DAILY 90 days 90 caps 1RF I10 - Essential (primary) hypertension Discontinued triamterene-hydrochlorothiazid 37.5-25 mg Discontinued Reason: Doctor's Order 1 cap PO DAILY 90 days 90 caps 1RF I10 - Essential (primary) hypertension Coding Level of Care Code Est Pt Level 4 (92137) Diagnoses 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 Chronicity: chronic Gout etiology: idiopathic Gout site: foot Laterality: right Presence of tophus: without tophus Essential hypertension I10 Hypertension type: essential hypertension Additional Codes CHAPARRO-7 Assessment Billing - CHAPARRO-7 Assessment Tool: CHAPARRO-7 Assessment [id number] ([id number])
[2023-05-29 11:16] VITALS: BP 154/64; PULSE 74; O2SAT 98; BMI 24.7
== END 2023-05-29 11:46 | disposition home or self-care (01) ==
PROVIDERS: PCP Physician Assistant; Visit Provider Physician Assistant
DX: M1A.0710 Idiopathic chronic gout, right ankle and foot, without tophus (tophi) (principal); I10 Essential (primary) hypertension
CPT/HCPCS: 99214

== ENCOUNTER 2023-07-11 08:28 | Outpatient (REF) | payer MEDICARE, SELFPAY ==
[2023-07-11 11:16] LABS: Alanine Aminotransferase 11 U/L (0-40); Albumin Level 3.9 g/dL (3.5-5.0); Alkaline Phosphatase 115 U/L (39-117); Anion Gap 14 (12-20); Aspartate Amino Transferase 17 U/L (5-37); Bilirubin Total 0.5 mg/dL (0.0-1.0); Blood Urea Nitrogen 13 mg/dL (9-16); Calcium 9.7 mg/dL (8.4-10.2); Carbon Dioxide 24 mmol/L (22-29); Chloride 108 mmol/L (96-108); Cholesterol 123 mg/dL (<200); Estimated Glomerular Filt Rate > 60; Glucose Fasting 97 mg/dL (60-99); HDL Cholesterol 37 mg/dL (>40); LDL Cholesterol Calculated 67 mg/dL (<100); Potassium 4.1 mmol/L (3.3-5.1); Sodium 142 mmol/L (135-145); Triglycerides 99 mg/dL (<150)
[2023-07-11 11:19] LABS: Prostate Specific Antigen Scr 3.29 ng/mL (<0.05-4.0)
[2023-07-11 11:34] LABS: Creatinine Urine 85.56 mg/dL; Microalbumin Urine < 5.0 mg/L
[2023-07-11 12:21] LABS: HBS Num1 104.38 mIU/mL (0-7.99); HBc Num1 0.07 S/CO (0.00-0.79); HBsAGNum1 0.24 S/CO (0.00-0.99); Hepatitis B Core Antibody Nonreactive (Nonreactive); Hepatitis B Surface Antigen Negative (Negative); ~Hepatitis B Surface Antibody REACTIVE (Nonreactive)
== END 2023-07-11 08:29 | disposition home or self-care (01) ==
LOC: HO.10HDL 08:28
PROVIDERS: Absent Provider Internal Medicine; PCP Physician Assistant; Visit Provider Physician Assistant
DX: E78.2 Mixed hyperlipidemia (principal); I10 Essential (primary) hypertension; Z12.5 Encounter for screening for malignant neoplasm of prostate
CPT/HCPCS: 36415; 80053; 80061; 82043; 82570; 84153; 86704; 86706; 87340

== ENCOUNTER 2023-07-18 07:53 | Outpatient (AMB) | payer MEDICARE, SELFPAY ==
[2023-07-18 08:03] VITALS: BP 148/82; PULSE 86; O2SAT 98; BMI 24.7
--- NOTE | 2023-07-18 08:03 | A.OFFPC_ITS ---
Vital Signs 07/18/23 08:03 Height 5 ft 9 in Weight 167 lb BMI 24.7 BP 148/82 H Blood Pressure Location Lt brachial Position Sitting Pulse 86 Pulse Source Pulse Oximeter Pulse Oximetry (%) 98 Oxygen Delivery Method Room Air Intake Visit Reasons: f/u HTN Allergies colchicine Adverse Reaction (Mild, Verified 07/18/23 08:21) Diarrhea Medication List - Last Reconciled 07/18/23 by Jonathan Varghese PA-C allopurinol 300 mg PO DAILY atorvastatin 40 mg PO DAILY 90 days carvedilol 6.25 mg PO BID cholecalciferol (vitamin D3) 50 mcg PO DAILY lisinopril 40 mg PO DAILY 90 days omeprazole 20 mg PO DAILY prednisone 10 mg PO DIRECTED 9 days triamterene 50 mg PO DAILY 90 days verapamil ER 240 mg PO DAILY Tobacco use date assessed: 05/29/23 Fall risk assessment: No Falls in past year Last assessed Fall Risk: 07/18/23 Dental Screening Dental Screen Date: 05/29/23 HPI f/u HTN HPI Details Patient is a 72-year-old male here today for follow-up visit.? Patient has a past medical history significant for hypertension, hyperlipidemia, gout, family history of coronary artery disease, BPH. Concern--> CHRONIC MEDICAL CONDITION--> . Hypertension:? Blood pressure elevated today in office. He reports that home blood pressures are quite stable 120-130 systolic. He does have an element of white coat hypertension.? Denies any headaches, vision issues, chest discomforts .. BPH:? Patient is followed by Urology and gets his PSA checked any yearly basis.? Recent PSA slightly higher than previous. He does report having history benign microscopic hematuria .. :Gout: Patient continues with right ankle and foot swelling and minimal pain. He does report it has been getting better. He is not hindered in any way. Patient continues on allopurinol on a daily basis. Does have prednisone available to him for acute flares. Recent inflammatory markers elevated also uric acid level at 8.7. .. Hyperlipidemia:? Patient's most recent lipid panels showing acceptable total cholesterol and LDL.? Continues to have low HDL.? He reports he continues to ride his bike as his main form of physical activity.? Continues on statin therapy without side effect Laboratory Tests 03/15/22 05/24/23 07/11/23 09:45 13:22 08:28 ESR 30 H 80 H Uric Acid 8.7 H 8.7 H Cholesterol PSA Screen Urine Microalbumin < 5.0 07/11/23 09:49 ESR Uric Acid Cholesterol 123 PSA Screen 3.29 Urine Microalbumin PFSH Medical History Gout Surgical History History of cholecystectomy Family History Father No problems noted. Mother No problems noted. 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 1. Little interest or pleasure in doing things: not at all 2. Feeling down, depressed, or hopeless: not at all 3. Trouble falling or staying asleep, or sleeping too much: not at all 4. Feeling tired or having little energy: not at all 5. Poor appetite or overeating: not at all 6. Feeling bad about yourself - or that you are a failure or have let yourself or your family down: not at all 7. Trouble concentrating on things, such as reading the newspaper or watching television: not at all 8. Moving or speaking so slowly that other people could have noticed. Or the opposite - being so fidgety or restless that you have been moving around a lot more than usual: not at all 9. Thoughts that you would be better off or of hurting yourself in some way: not at all Total score: 0 Depression Screening Interpretation: Negative Depression Screening Done: Yes 64001 - PHQ-9 Billing: Yes Source: Developed by Drs. Marky Giles, Helene Beebe, Kong Simpson and colleagues, with an educational sweetie from [employer]. Thrive Questionnaire Date Thrive assessed: 05/29/23 AUDIT C Alcohol Use Questionnaire (AUDIT-C) 1. How often do you have a drink containing alcohol?: Monthly or less (10 a m onth) 2. How many drinks containing alcohol do you have on a typical day when you are drinking?: 1 or 2 3. How often do you have six or more drinks on one occasion?: Never Total Score: 1 CHAPARRO-7 AMB Questionnaire CHAPARRO-7 Date CHAPARRO - 7 assessed: 05/29/23 Source: Developed by Drs. Mraky Giles, Helene Beebe, Kong Simpson and colleagues, with an educational sweetie from [employer]. Review of Systems Const Denies headache(s) Eyes Denies loss of vision ENT Denies vertigo, Denies dizziness, Denies headache(s) and Denies sore throat Card Denies chest pain, Denies leg edema and Denies lightheadedness Resp Denies cough, Denies hemoptysis and Denies wheezing GI Denies abdominal pain, Denies melena, Denies constipation, Denies diarrhea and Denies vomiting Denies dysuria, Denies urinary frequency and Denies urinary urgency Musc Denies arthralgias, Denies joint swelling, Denies numbness and Denies tingling Neuro Denies Abnormal speech present, Denies behavioral changes, Denies vertigo, Denies dizziness, Denies headache(s), Denies loss of vision, Denies memory loss, Denies numbness and Denies tingling Psych Denies anxiety, Denies behavioral changes, Denies depression, Denies memory loss and Denies panic attacks Frankie/Lymph Denies easy bleeding and Denies easy bruising Aller/Immun Denies wheezing Physical exam (Primary Care) Vital Signs: Last Vital Signs Pulse 86 07/18/23 08:03 BP 148/82 H 07/18/23 08:03 Pulse Ox 98 07/18/23 08:03 Oxygen Delivery Method Room Air 07/18/23 08:03 BMI result Body Mass Index 24.7 Tobacco/Smoking Status: Tobacco use Status Tobacco use date assessed 05/29/23 07/18/23 08:10 Patient Tobacco Use Status Never used Tobacco 07/18/23 08:10 e-Cigarette/Vaping Use Never Used 07/18/23 08:10 PHQ-9: PHQ-9 Score PHQ-9: Total score 0 07/18/23 08:10 Depression Screening Interpretation: Negative Thrive Assessment: Date of Thrive Assessment Date Thrive assessed 05/29/23 07/18/23 08:10 Const General: healthy appearing, no acute distress, alert and awake Nutritional Appearance: well nourished Orientation/consciousness: oriented to person, oriented to place and oriented to time HENMT Ears: TM's normal bilaterally General nose exam: Normal nasal mucous membranes and turbinates present Eyes Conjunctivae: conjunctivae normal Sclerae: sclerae normal Pupils: Equal, round and reactive pupils present Neck Neck: Yes no lymphadenopathy and Yes no JVD Thyroid: Thyroid normal Carotids: no bruits Resp Effort & Inspection: normal respiratory effort and not tachypneic Auscultation: no crackles, no rales, no rhonchi and no wheezes Cardio Rate: regular rate Rhythm: regular rhythm Heart sounds: no murmurs and normal S1 and S2 GI Palpation (GI): Soft to palpation, nontender, no hepatomegaly and no splenomegaly Auscultation: normal bowel sounds Skin General skin exam: no rashes or lesions noted and dry skin Neuro General: oriented to person, oriented to place and oriented to time Cranial nerves: Yes Equal, round and reactive pupils present Speech: No Abnormal speech present Gait exam (Neuro): Normal gait present Motor exam (neuro): no tremor noted Extrem Right upper extremity: full ROM Left upper extremity: full ROM Right lower extremity: full ROM; no edema Left lower extremity: full ROM; no edema Psych Mental Status: mental status grossly normal Speech and movement: Normal speech and movement present Affect: normal affect Attitude: cooperative Thought process: Normal thought process present Assessment and Plan Assessment & Plan (1) Gout: Comment: 40 min reviewing chart evaluating patient and documenting Code(s): M10.9 - Gout, unspecified Qualifiers: Gout site: foot Gout etiology: idiopathic Chronicity: chronic Laterality: right Presence of tophus: without tophus Qualified Code(s): M1A.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 We have discontinue hydrochlorothiazide. Continues to have swelling noted around the ankle and midfoot though per patient reports is much better. Uric acid levels inflammatory markers are elevated. We have started allopurinol on a daily basis and will recheck his uric acid levels and inflammatory markers. He does have prednisone available to him for acute flares. Advised on elevating extremity and using compression sock to help with the edema. (2) HTN (hypertension): Code(s): I10 - Essential (primary) hypertension Qualifiers: Hypertension type: essential hypertension Qualified Code(s): I10 - Essential (primary) hypertension Plan: BLOOD PRESSURE remains elevated today in office. Reports that home blood pressures usually much better at home. Likely element of white coat hypertension. Goal blood pressures to be below 140/90. Microalbumin is normal. (3) HLD (hyperlipidemia): Code(s): E78.5 - Hyperlipidemia, unspecified Qualifiers: Hyperlipidemia type: mixed hyperlipidemia Qualified Code(s): E78.2 - Mixed hyperlipidemia Plan: Patient's most recent lipid panel showing excellent control of his total cholesterol and LDL. Continues on atorvastatin 40 mg without side effect. Goal LDL to remain below 130. Medications: Changed From allopurinol 300 mg PO DAILY M1A.0710 - Idiopathic chronic gout, right ankle and foot, without tophus (tophi) To allopurinol 300 mg PO DAILY 90 days 90 tabs 1RF M1A.0710 - Idiopathic chronic gout, right ankle and foot, without tophus (tophi) Refilled triamterene 50 mg PO DAILY 90 days 90 caps 1RF I10 - Essential (primary) hypertension prednisone take 3 tabs x 3 days, take 2 tabs x 3 days , take 1 tabs x 3 days 10 mg PO DIRECTED 9 days 18 tabs 0RF M1A.0710 - Idiopathic chronic gout, right ankle and foot, without tophus (tophi) Patient Instructions: Goal: Blood pressure to remain below 140/90 at home Barriers: Adherence to physical activity and healthy eating habits Coding Level of Care Code Est Pt Level 4 (76984) Diagnoses 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 Gout site: foot Gout etiology: idiopathic Chronicity: chronic Laterality: right Presence of tophus: without tophus Essential hypertension I10 Hypertension type: essential hypertension Mixed hyperlipidemia E78.2 Hyperlipidemia type: mixed hyperlipidemia
== END 2023-07-18 08:41 | disposition home or self-care (01) ==
PROVIDERS: PCP Physician Assistant; Visit Provider Physician Assistant
DX: M1A.0710 Idiopathic chronic gout, right ankle and foot, without tophus (tophi) (principal); I10 Essential (primary) hypertension; E78.2 Mixed hyperlipidemia
CPT/HCPCS: 99214

== ENCOUNTER 2023-09-15 09:33 | Outpatient (AMB) | payer MEDICARE, SELFPAY ==
[2023-09-15 10:11] VITALS: BP 128/62; PULSE 68; TEMP 36.5; O2SAT 95; BMI 24.8
--- NOTE | 2023-09-15 10:11 | AM.OFFWIN_ITS ---
Intake Vital Signs 09/15/23 10:11 Height 5 ft 9 in Weight 168 lb BMI 24.8 BP 128/62 Blood Pressure Location Rt brachial Position Sitting Pulse 68 Pulse Source Pulse Oximeter Temp 97.7 F Temp Source Oral Pulse Oximetry (%) 95 Oxygen Delivery Method Room Air Intake Visit Reasons: EP both ears itchy Intake Note: Pt is here today c/o bilateral ear itchy Patient Tobacco Use Status: Never used Tobacco Allergies colchicine Adverse Reaction (Mild, Verified 09/15/23 10:20) Diarrhea Medication List - Last Reconciled 09/15/23 by Helen Shaffer, MEDICAL DOCTOR- allopurinol 300 mg PO DAILY 90 days atorvastatin 40 mg PO DAILY 90 days carvedilol 6.25 mg PO BID cholecalciferol (vitamin D3) 50 mcg PO DAILY lisinopril 40 mg PO DAILY 90 days omeprazole 20 mg PO DAILY triamterene 50 mg PO DAILY 90 days verapamil ER 240 mg PO DAILY HPI HPI Comments History of Present Illness Details Here today with complaints of itchy ears for several weeks. Self treating at home with [id number] drop without relief. Exam Dry cerumen impaction bilat EAC Plan Offered to perform lavage today however made aware that the cerumen appears very dry, which may make the procedure painful. Also offered to send in Debrox and have him return for a lavage in about 6-7 days. He opted for the latter decision and will follow up next week for a lavage. This note is constructed using voice recognition software. While every effort has been made to ensure accuracy in assistant professor of spanish, still errors may have been included Sometimes, these errors may affect the content or meaning of the given sentence . [facility] Medical History Gout Surgical History History of cholecystectomy Family History Father No problems noted. Mother No problems noted. 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 Medications: New carbamide peroxide 6.5% (Debrox) 5 drps otic (ears) DAILY 5 days 15 mL 0RF BILAT EARS Patient Instructions: Earwax (Cerumen Impaction) Created in Ears Earwax, called cerumen, is produced by special wax-forming glands located in the skin of the outer one-third of the ear canal. It is normal to have cerumen in ear canal as this waxy substance serves as a self-cleaning agent with protective, lubricating, and antibacterial properties. The absence of earwax may result in dry, itchy ears. Self-cleaning means there is a slow and unmanned aircraft systems roboticist movement of earwax and skin cells from the eardrum to the ear opening. Old earwax is constantly being transported, assisted by chewing and jaw motion, from the ear canal to the ear opening where, most of the time, it dries, flakes, and falls out. What Are the Symptoms of an Earwax Blockage? Symptoms of an earwax problem may include: Earache Feeling of plugged hearing or fullness in the ear Partial hearing loss that gets worse Tinnitus, ringing, or noises in the ear Itching, odor, or discharge Coughing Pain Infection What Causes Earwax Blockage? When a patient has wax blockage against the eardrum, it is often because they have been probing the ear with such things as cotton-tipped swabs, samantha pins, or twisted napkin corners. These objects only push the wax in deeper in the ear canal. Why Is It Dangerous to Use Swabs to Remove Earwax? Wax blockage is one of the most common causes of hearing loss. This is often caused by attempts to clean the ear with cotton swabs. Most cleaning attempts merely push the wax deeper into the ear canal which is shaped like an hourglass, causing a blockage at the narrowing part of the ear canal. In addition, accidental trauma to the ear drum or ear bones can occur if the swab is pushed too deep. Good intentions to keep ears clean may lessen the ability to hear. The ear is a delicate and complicated body part, including the skin of the ear canal and the eardrum. Therefore, special care should be given to this part of the body. Disco ntinue the habit of inserting cotton-tipped swabs or other objects into the ear canals. What Are the Treatment Options? Cleaning a working ear can be done by washing it with a soft cloth, but do not insert anything into the ear. Ideally, the ear canals should never have to be cleaned. However, that isn?t always the case. The ears should be cleaned when enough earwax gathers to cause symptoms or to prevent a needed assessment of the ear by your doctor. This condition is call cerumen impaction. Most cases of ear wax blockage respond to home treatments used to soften wax. Patients can try placing a few drops of mineral oil, baby oil, glycerin, or commercial drops in the ear. Detergent drops such as hydrogen peroxide or carbamide peroxide (available in most pharmacies) may also aid in the removal of wax. Irrigation or ear syringing is commonly used for cleaning and can be performed by a physician or at home using a commercially available irrigation kit. Common solutions used for syringing include water and saline, which should be warmed to body temperature to prevent dizziness. Ear syringing is most effective when water, saline, or wax dissolving drops are put in the ear canal 15 to 30 minutes before treatment. Caution is advised to avoid having your ears irrigated if you have diabetes, a hole in the eardrum (perforation), tube in the eardrum, skin problems such as eczema in the ear canal or a weakened immune system. >> If you have been prescribed Debrox, use as directed for 5 nights and return to the office on Day 6 for an ear lavage to remove the wax<< Manual removal of earwax is also effective. This is most often performed by an ENT (ear, nose, and throat) specialist, or coffee supervisor, using suction or special miniature instruments, and a microscope to magnify the ear canal. Manual removal is preferred if your ear canal is narrow, the eardrum has a perforation or tube, other methods have failed, or if you have skin problems affecting the ear canal, diabetes or a weakened immune system. When Should I Talk to a Doctor? If home treatments do not help, or if wax has accumulated so much that it blocks your ear canal and your ability to hear, an ENT specialist may prescribe eardrops designed to soften wax, or they may wash or vacuum it out. Your ENT specialist may also need to remove the wax under microscopic visualization. If there is a possibility of a perforation in the eardrum, consult a physician prior to trying any [id number]-[id number]-[id number] remedies. Putting eardrops or other products in the ear with the presence of an eardrum perforation may cause pain o r an infection. Washing water through such a hole could start an infection. If you are prone to repeated wax impaction or use hearing aids, consider seeing your doctor every six to 12 months for a checkup and routine preventive cleaning. What Questions Should I Ask My Doctor? What are the benefits and risks/side effects of different cerumen removal management options: earwax softening products, water irrigation vs. physical removal? Does cerumen accumulation vary with age, gender, familial or dietary intake? How do I manage swimming underwater with cerumen impaction? Should anything be done to the ears to prevent a buildup of earwax? How often should cerumen be removed from the ears? Are ear candles a safe option for removing earwax? Coding Level of Care Code Est Pt Level 3 (33199) Diagnoses Impacted cerumen, bilateral H61.23
== END 2023-09-15 10:50 | disposition home or self-care (01) ==
PROVIDERS: PCP Physician Assistant; Visit Provider Nurse Practitioner Family
DX: H61.23 Impacted cerumen, bilateral (principal)
CPT/HCPCS: 99051; 99213

== ENCOUNTER 2023-11-13 10:20 | Outpatient (AMB) | payer MEDICARE, SELFPAY ==
--- NOTE | 2023-11-13 10:28 | AM.OFFWIN_ITS ---
Intake Vital Signs 11/13/23 10:29 Height 5 ft 9 in Weight 168 lb BMI 24.8 BP 140/80 H Blood Pressure Location Lt brachial Position Sitting Pulse 83 Pulse Source Pulse Oximeter Pulse Oximetry (%) 98 Oxygen Delivery Method Room Air Intake Visit Reasons: EP Ears clogged Intake Note: Patient here for bilat ear blockage. Patient Tobacco Use Status: Never used Tobacco Allergies colchicine Adverse Reaction (Mild, Verified 11/13/23 10:30) Diarrhea Do you need a note to return to daycare/school/sports/work: No HPI HPI Comments History of Present Illness Details This is a 73-year-old male presenting for evaluation of cerumen impaction. Patient states that he had both ears cleaned out at urgent care in August and has been using OTC eardrops for prevention of cerumen buildup. Patient states he has decreased hearing in his left ear. He denies any overt otalgia or discharge from his ears bilaterally. [facility] Medical History Gout Surgical History History of cholecystectomy Family History Father No problems noted. Mother No problems noted. 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 Cognitive needs: No Hearing needs: No Vision needs: Yes Review of Systems Const All systems reviewed & are unremarkable except as noted in HPI and below Reports no additional complaints Eyes Reports no additional complaints ENT Denies Normal hearing present (decreased hearing left ear), Denies vertigo, Denies dizziness, Denies otalgia, Reports hearing loss (left ear) and Denies sore throat Card Reports no additional complaints Resp Reports no additional complaints GI Reports no additional complaints Neuro Reports no additional complaints, Denies Normal hearing present (decreased hearing left ear), Denies vertigo and Denies dizziness Psych Reports no additional complaints Physical Exam Vital Signs: Last Vital Signs Pulse 83 11/13/23 10:29 BP 140/80 H 11/13/23 10:29 Pulse Ox 98 11/13/23 10:29 Oxygen Delivery Method Room Air 11/13/23 10:29 BMI result Body Mass Index 24.8 Const General: cooperative, healthy appearing, comfortable, no acute distress, well developed, alert, awake and Physically active; No acute distress Nutritional Appearance: average body habitus Orientation/consciousness: patient oriented x3 Limitations: no limitations HEENT Head: Yes normal to inspection Ears: hearing grossly normal bilaterally, external ears normal, TM normal on the right, TM normal on the left and EAC's not normal (cerumen impaction left EAC, right EAC clear without cerumen) General nose exam: Normal external nose present Face and sinus: Yes normal facial exam Eyes General: appearance normal, both eyes and all related structures Neuro General: patient oriented x3 Cranial nerves: No Normal hearing present (decreased hearing left ear) Psych Appearance: grossly normal Mental Status: mental status grossly normal Insight: Good insight present (Psych) Judgement: Good judgement present (Psych) Office Procedures Cerumen Removal From which ear canal was the cerumen removed: left Removal: irrigation Notes: no complications 35980-Bpi Irrigation/Lavage Assessment & Plan Assessment & Plan (1) Left ear impacted cerumen: Comment: Cerumen completely removed from left ear with irrigation. Code(s): H61.22 - Impacted cerumen, left ear Plan: Debrox drops for prevention of cerumen impaction. Follow-up only as needed. Coding Level of Care Code Est Pt Level 3 (05742) Diagnoses Left ear impacted cerumen H61.22 CPT Codes Office Procedure - CPT: 68266-Agd Irrigation/Lavage ([id number]) Time Spent (min) 25
[2023-11-13 10:29] VITALS: BP 140/80; PULSE 83; O2SAT 98; BMI 24.8
== END 2023-11-13 11:31 | disposition home or self-care (01) ==
PROVIDERS: PCP Physician Assistant; Visit Provider Physician Assistant
DX: H61.22 Impacted cerumen, left ear (principal)

== ENCOUNTER → 2023-11-13 10:20 | Outpatient (BNVA) | payer MEDICARE, SELFPAY | PROVIDERS: PCP Physician Assistant | DX: H61.22 Impacted cerumen, left ear (principal) | CPT/HCPCS: 69209; 99212 ==

== ENCOUNTER 2024-01-11 09:31 | Outpatient (REF) | payer MEDICARE, SELFPAY ==
[2024-01-11 10:33] LABS: Hematocrit 39.8 % (42.0-52.0); Hemoglobin 13.6 g/dl (14.0-18.0); Mean Corpuscular HGB Conc 34.2 g/dl (31.0-36.0); Mean Corpuscular Hemoglobin 32.4 pg (27.0-33.0); Mean Corpuscular Volume 94.8 fL (80.0-98.0); Platelet Count 218 X10*3/uL (160-400); Red Cell Distribution Width 13.3 % (11.0-16.0); White Blood Count 8.1 X10*3/uL (4.8-10.8)
[2024-01-11 11:06] LABS: Alanine Aminotransferase 16 U/L (0-40); Albumin Level 4.1 g/dL (3.5-5.0); Alkaline Phosphatase 115 U/L (39-117); Anion Gap 10 (12-20); Aspartate Amino Transferase 26 U/L (5-37); Bilirubin Total 0.5 mg/dL (0.0-1.0); Blood Urea Nitrogen 22 mg/dL (9-16); Calcium 9.3 mg/dL (8.4-10.2); Carbon Dioxide 24 mmol/L (22-29); Chloride 109 mmol/L (96-108); Cholesterol 107 mg/dL (<200); Estimated Glomerular Filt Rate 59; Glucose Fasting 116 mg/dL (60-99); HDL Cholesterol 37 mg/dL (>40); LDL Cholesterol Calculated 53 mg/dL (<100); Potassium 4.5 mmol/L (3.3-5.1); Sodium 138 mmol/L (135-145); Total Protein 6.9 g/dL (6.5-8.0); Triglycerides 85 mg/dL (<150)
[2024-01-11 11:11] LABS: Prostate Specific Antigen Scr 3.33 ng/mL (<0.05-4.0)
[2024-01-11 11:20] LABS: Creatinine Urine 134.39 mg/dL; Microalbumin Urine < 5.0 mg/L
[2024-01-11 11:31] LABS: Uric Acid 4.9 mg/dL (3.4-7.0)
== END 2024-01-11 09:32 | disposition home or self-care (01) ==
LOC: HO.10HDL 09:31
PROVIDERS: Visit Provider Physician Assistant
DX: Z12.5 Encounter for screening for malignant neoplasm of prostate (principal); M1A.0710 Idiopathic chronic gout, right ankle and foot, without tophus (tophi); E78.2 Mixed hyperlipidemia; I10 Essential (primary) hypertension
CPT/HCPCS: 36415; 80053; 80061; 82043; 82570; 84153; 84550; 85027

== ENCOUNTER 2024-01-16 07:36 | Outpatient (AMB) | payer MEDICARE, SELFPAY ==
--- NOTE | 2024-01-16 07:42 | MHC.PC.OV ---
Vital Signs 01/16/24 07:43 Height 5 ft 9 in Weight 169 lb BMI 25.0 BP 140/70 H Blood Pressure Location Lt brachial Position Sitting Intake Visit Reasons: 6 Month F/U Intake Note: Patient here for a 6 month follow up Livestock Breeder Required: No Accompanied by: Self / Same As Patient Allergies colchicine Adverse Reaction (Mild, Verified 01/16/24 07:52) Diarrhea Medication List - Last Reconciled 01/16/24 by Jonathan Varghese PA-C allopurinol 300 mg PO DAILY 90 days atorvastatin 40 mg PO DAILY 90 days carbamide peroxide 6.5% (Debrox) 5 drps otic (ears) DAILY 5 days carvedilol 6.25 mg PO BID cholecalciferol (vitamin D3) 50 mcg PO DAILY lisinopril 40 mg PO DAILY 90 days omeprazole 20 mg PO DAILY triamterene 50 mg PO DAILY 90 days verapamil ER 240 mg PO DAILY Tobacco use date assessed: 05/29/23 Fall risk assessment: No Falls in past year Dental Screening Dental Screen Date: 01/16/24 Did you have a dental visit in the last 12 months?: Yes Did you have a dental problem in the last 6 months where you did not have access to dental care?: No Was dental information given to patient?: Patient has dentist HPI 6 Month F/U HPI Details Patient is a 73-year-old male here today for follow-up visit.? Patient has a past medical history significant for hypertension, hyperlipidemia, gout, family history of coronary artery disease, BPH. CHRONIC MEDICAL CONDITION--> . Hypertension:? Blood pressure elevated today in office. He reports that home blood pressures are quite stable 120-130 systolic. He does have an element of white coat hypertension.? Denies any headaches, vision issues, chest discomforts .. BPH:? Patient is followed by Urology and gets his PSA checked any yearly basis.? Recent PSA slightly higher than previous. He does report having history benign microscopic hematuria .. :Gout: he reports his gout about has resolved with the addition of allopurinol.. He does report it has been getting better. He is not hindered in any way. Patient continues on allopurinol on a daily basis. .. Hyperlipidemia:? Patient's most recent lipid panels showing acceptable total cholesterol and LDL.? Continues to have low HDL.? He reports he continues to ride his bike as his main form of physical activity.? Continues on statin therapy without side effect. Laboratory Tests 01/11/24 09:38 RBC 4.20 L Hgb 13.6 L Creatinine 1.20 Fasting Glucose 116 H Cholesterol 107 LDL Cholesterol, C alc 53 PSA Screen 3.33 [facility] Medical History Gout Surgical History History of cholecystectomy Family History Father No problems noted. Mother No problems noted. 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 1. Little interest or pleasure in doing things: not at all 2. Feeling down, depressed, or hopeless: not at all 3. Trouble falling or staying asleep, or sleeping too much: not at all 4. Feeling tired or having little energy: not at all 5. Poor appetite or overeating: not at all 6. Feeling bad about yourself - or that you are a failure or have let yourself or your family down: not at all 7. Trouble concentrating on things, such as reading the newspaper or watching television: not at all 8. Moving or speaking so slowly that other people could have noticed. Or the opposite - being so fidgety or restless that you have been moving around a lot more than usual: not at all 9. Thoughts that you would be better off or of hurting yourself in some way: not at all Total score: 0 Depression Screening Interpretation: Negative Depression Screening Done: Yes 34089 - PHQ-9 Billing: Yes Source: Developed by Drs. Marky Giles, Helene Beebe, Kong Simpson and colleagues, with an educational sweetie from [employer]. Thrive Questionnaire Date Thrive assessed: 05/29/23 CHAPARRO-7 AMB Questionnaire CHAPARRO-7 Date CHAPARRO - 7 assessed: 05/29/23 Source: Developed by Drs. Marky Giles, Helene Beebe, Kong Simpson and colleagues, with an educational sweetie from [employer]. Review of Systems Const Denies headache(s) Eyes Denies loss of vision ENT Denies vertigo, Denies dizziness, Denies headache(s) and Denies sore throat Card Denies chest pain, Denies leg edema and Denies lightheadedness Resp Denies cough, Denies hemoptysis and Denies wheezing GI Denies abdominal pain, Denies melena, Denies constipation, Denies diarrhea and Denies vomiting Denies dysuria, Denies urinary frequency and Denies urinary urgency Musc Denies arthralgias, Denies joint swelling, Denies numbness and Denies tingling Neuro Denies Abnormal speech present, Denies behavioral changes, Denies vertigo, Denies dizziness, Denies headache(s), Denies loss of vision, Denies memory loss, Denies numbness and Denies tingling Psych Denies anxiety, Denies behavioral changes, Denies depression, Denies memory loss and Denies panic attacks Frankie/Lymph Denies easy bleeding and Denies easy bruising Aller/Immun Denies wheezing Physical exam (Primary Care) Vital Signs: Last Vital Signs BP 140/70 H 01/16/24 07:43 BMI result Body Mass Index 25.0 Tobacco/Smoking Status: Tobacco use Status Tobacco use date assessed 05/29/23 01/16/24 07:49 Patient Tobacco Use Status Never used Tobacco 01/16/24 07:49 e-Cigarette/Vaping Use Never Used 01/16/24 07:49 PHQ-9: PHQ-9 Score PHQ-9: Total score 0 01/16/24 07:49 Depression Screening Interpretation: Negative Thrive Assessment: Date of Thrive Assessment Date Thrive assessed 05/29/23 01/16/24 07:49 Const General: healthy appearing, no acute distress, alert and awake Nutritional Appearance: well nourished Orientation/consciousness: oriented to person, oriented to place and oriented to time HENMT Other: LEFT EAR: CERUMEN NOTED Ears: TM's normal bilaterally General nose exam: Normal nasal mucous membranes and turbinates present Eyes Conjunctivae: conjunctivae normal Sclerae: sclerae normal Pupils: Equal, round and reactive pupils present Neck Neck: Yes no lymphadenopathy and Yes no JVD Thyroid: Thyroid normal Carotids: no bruits Resp Effort & Inspection: normal respiratory effort and not tachypneic Auscultation: no crackles, no rales, no rhonchi and no wheezes Cardio Rate: regular rate Rhythm: regular rhythm Heart sounds: no murmurs and normal S1 and S2 GI Palpation (GI): Soft to palpation, nontender, no hepatomegaly and no splenomegaly Auscultation: normal bowel sounds Skin General skin exam: no rashes or lesions noted and dry skin Neuro General: oriented to person, oriented to place and oriented to time Cranial nerves: Yes Equal, round and reactive pupils present Speech: No Abnormal speech present Gait exam (Neuro): Normal gait present Motor exam (neuro): no tremor noted Extrem Right upper extremity: full ROM Left upper extremity: full ROM Right lower extremity: full ROM; no edema Left lower extremity: full ROM; no edema Psych Mental Status: mental status grossly normal Speech and movement: Normal speech and movement present Affect: normal affect Attitude: cooperative Thought process: Normal thought process present Coding Level of Care Code Est Pt Level 4 (32636) Diagnoses Mixed hyperlipidemia E78.2 Hyperlipidemia type: mixed hyperlipidemia Essential hypertension I10 Hypertension type: essential hypertension 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 Gout site: foot Gout etiology: idiopathic Chronicity: chronic Laterality: right Presence of tophus: without tophus Sensorineural hearing loss (SNHL) of both ears H90.3 Laterality: bilateral Left ear impacted cerumen H61.22 Additional Codes PHQ-9 - 27821 - PHQ-9 Billing: Yes ([id number]) Assessment & Plan Assessment & Plan (1) HLD (hyperlipidemia): Code(s): E78.5 - Hyperlipidemia, unspecified Category: Medical Qualifiers: Hyperlipidemia type: mixed hyperlipidemia Qualified Code(s): E78.2 - Mixed hyperlipidemia Plan: Patient's fasting lipid panel under excellent control with current cholesterol-lowering medication. Goal LDL to remain below 130 (2) HTN (hypertension): Code(s): I10 - Essential (primary) hypertension Category: Medical Qualifiers: Hypertension type: essential hypertension Qualified Code(s): I10 - Essential (primary) hypertension Plan: Patient's blood pressure slightly elevated today in office. He reports that home blood pressures are stable. He otherwise denies being symptomatic with headache, chest discomfort or dizziness. Goal blood pressures to be below 140/90 (3) Gout: Comment: 40 min reviewing chart evaluating patient and documenting Code(s): M10.9 - Gout, unspecified Category: Medical Qualifiers: Gout site: foot Gout etiology: idiopathic Chronicity: chronic Laterality: right Presence of tophus: without tophus Qualified Code(s): M1A.0710 - Idiopathic chronic gout, right ankle and foot, without tophus (tophi) Plan: patient reports his gout has been well controlled with the addition of allopurinol. We have discontinued hydrochlorothiazide as well. He has been making some dietary modifications to reduce his high purines in his diet. (4) SNHL (sensorineural hearing loss): Code(s): H90.5 - Unspecified sensorineural hearing loss Category: Medical Qualifiers: Laterality: bilateral Qualified Code(s): H90.3 - Sensorineural hearing loss, bilateral Plan: as below (5) Left ear impacted cerumen: Comment: Cerumen completely removed from left ear with irrigation. Code(s): H61.22 - Impacted cerumen, left ear Category: Medical Plan: patient does seem to have a left ear cerumen impaction, would like to do home solution to get the ear wax out. He would like to still go for hearing exam Orders: Orders Uric Acid 6 Months M1A.0710 - Idiopathic chronic gout, right ankle and foot, without tophus (tophi) Lipid Panel 6 Months E78.2 - Mixed hyperlipidemia Microalbumin, Random (w Creat) 6 Months I10 - Essential (primary) hypertension Comprehensive [place]. Panel Fast 6 Months I10 - Essential (primary) hypertension Complete Blood Count no Diff 6 Months I10 - Essential (primary) hypertension Referrals Speech and Hearing Referral H90.5 - Unspecified sensorineural hearing loss Medications: Refilled triamterene 50 mg PO DAILY 90 days 90 caps 1RF I10 - Essential (primary) hypertension carbamide peroxide 6.5% (Debrox) 5 drps otic (ears) DAILY 5 days 15 mL 0RF BILAT EARS H61.22 - Impacted cerumen, left ear
[2024-01-16 07:43] VITALS: BP 140/70; BMI 25.0
== END 2024-01-16 08:09 | disposition home or self-care (01) ==
PROVIDERS: PCP Physician Assistant; Visit Provider Physician Assistant
DX: E78.2 Mixed hyperlipidemia (principal); I10 Essential (primary) hypertension; M1A.0710 Idiopathic chronic gout, right ankle and foot, without tophus (tophi); H90.3 Sensorineural hearing loss, bilateral; H61.22 Impacted cerumen, left ear

== ENCOUNTER → 2024-01-16 07:36 | Outpatient (BNVA) | payer MEDICARE, SELFPAY | PROVIDERS: PCP Physician Assistant; Visit Provider Physician Assistant | DX: E78.2 Mixed hyperlipidemia (principal); I10 Essential (primary) hypertension; M1A.0710 Idiopathic chronic gout, right ankle and foot, without tophus (tophi); H90.3 Sensorineural hearing loss, bilateral; H61.22 Impacted cerumen, left ear | CPT/HCPCS: 96127; 99212 ==

== ENCOUNTER 2024-01-17 09:30 | Outpatient (REF) | payer MEDICARE, SELFPAY | END 2024-01-17 09:31 | disposition home or self-care (01) | LOC: HO.SH 09:30 | PROVIDERS: Visit Provider Physician Assistant | DX: Z01.118 Encounter for examination of ears and hearing with other abnormal findings (principal); H90.3 Sensorineural hearing loss, bilateral | CPT/HCPCS: 92557; 92567 ==

== ENCOUNTER 2024-02-25 14:21 | Outpatient (AMB) | payer MEDICARE, SELFPAY ==
[2024-02-25 15:11] VITALS: BP 170/90; PULSE 68; O2SAT 97
--- NOTE | 2024-02-25 15:11 | AM.OFFWIN_ITS ---
Intake Vital Signs 02/25/24 15:11 02/25/24 15:46 Weight 172 lb BP 170/90 H 160/88 H Blood Pressure Location Lt brachial Position Sitting Pulse 68 Pulse Source Pulse Oximeter Pulse Oximetry (%) 97 Oxygen Delivery Method Room Air Intake Visit Reasons: EP-headaches including rt side of eye Intake Note: Patient here for headaches that started Sunday and has been taking aspirin for it. Denies any cold symptoms Patient Tobacco Use Status: Never used Tobacco Allergies colchicine Adverse Reaction (Mild, Verified 02/25/24 15:22) Diarrhea Do you need a note to return to daycare/school/sports/work: No HPI EP-headaches including rt side of eye HPI Details This note is constructed using voice recognition software. While every effort has been made to ensure accuracy, paediatric physiotherapist errors may have been included. The patient is a 73 year old male who presents to the clinic today with headaches since Sunday. He denies fever, chills, cough, shortness of breath, GI symptoms, does report that he has had an elevated blood pressure at home today. He does report that he is also under it and extreme amount of stress with a diagnosis of his with dementia approximately 1-1/2-2 years ago. He notes that over the holidays he has been much more aware of the changes that are occurring, which has led him to feel the stress, which he does feel he experienc es as a headache. He typically has 1-3 headaches per year, and they typically resolve with aspirin. He has taken aspirin Sunday, Sunday, and today for the headache, with limited response. He also reports a history of allergies, which he has recently stopped treating approximately a few weeks ago. [facility] Medical History Gout Surgical History History of cholecystectomy Family History Father No problems noted. Mother No problems noted. 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 Cognitive needs: No Hearing needs: No Vision needs: Yes Review of Systems Const All systems reviewed & are unremarkable except as noted in HPI and below Physical Exam Vital Signs: Last Vital Signs Pulse 68 02/25/24 15:11 BP 170/90 H 02/25/24 15:11 Pulse Ox 97 02/25/24 15:11 Oxygen Delivery Method Room Air 02/25/24 15:11 Const General: cooperative, healthy appearing, comfortable and no acute distress Orientation/consciousness: patient oriented x3 Limitations: no limitations HEENT Head: Yes normal to inspection Ears: hearing grossly normal bilaterally, external ears normal and TM abnormal retracted General nose exam: Normal external nose present, No nasal discharge present and Abnormal mucous membranes and turbinates present boggy and pale Face and sinus: Yes normal facial exam and Yes sinuses nontender Mouth: Normal oral and palatal mucosa present and moist mucous membranes Throat: Yes tonsils normal, Yes uvula midline, Yes posterior oropharynx abnormal (Erythema), Yes postnasal drainage and Yes cobblestoning Eyes General: appearance normal, both eyes and all related structures Neck Neck: Yes normal visual inspection Resp Effort & Inspection: normal respiratory effort, able to speak in complete sentences, Actively coughing, no respiratory distress, not tachypneic, no tripod positioning and no use of accessory muscles Auscultation: clear to auscultation bilaterally Cardio Rate: regular rate Rhythm: regular rhythm Heart sounds: normal S1 and S2 Skin General skin exam: no rashes or lesions noted Neuro General: patient oriented x3 Cranial nerves: Yes CN's II-XII intact bilaterally Extrem General: Yes normal to inspection and Yes no clubbing, cyanosis or edema Assessment & Plan Assessment & Plan (1) CHAPARRO (generalized anxiety disorder): Code(s): F41.1 - Generalized anxiety disorder Plan: Patient experiencing increased anxiety following the diagnosis of dementia with his . Community health navigator referral to discuss potential treatment options including counseling. Reviewed with patient the likelihood that this may contribute to some of the symptoms he is experiencing today. (2) HTN (hypertension): Code(s): I10 - Essential (primary) hypertension Qualifiers: Hypertension type: essential hypertension Qualified Code(s): I10 - Essential (primary) hypertension Plan: Elevated blood pressure may be entirely related to stress, see also anxiety. Advised patient to monitor his blood pressure twice daily for the next several days, and present to the emergency room should he have ongoing elevation, worsening, and follow up with primary care with ongoing elevated blood pressure. (3) Allergic rhinitis: Code(s): J30.9 - Allergic rhinitis, unspecified Qualifiers: Allergic rhinitis trigger: unspecified Allergic rhinitis seasonality: unspecified Qualified Code(s): J30.9 - Allergic rhinitis, unspecified Plan: Supportive measures encouraged and reviewed. Advised patient to try a Flonase nasal spray and second-generation antihistamine such as Zyrtec, Claritin, Nancy or similar. Advised consideration of sinus rinse if needed. Advised patient to follow up with primary care provider with worsening or failure to resolve. (4) Headache: Code(s): R51.9 - Headache, unspecified Qualifiers: Headache type: unspecified Headache chronicity pattern: acute headache Intractability: intractable Qualified Code(s): R51.9 - Headache, unspecified Plan: Reassuring physical examination today. Headache may be related to both stress, as well as allergies, however etiology is unclear. It does not appear to be related to the elevated blood pressure due to the location of the pain. Advised trial of Tylenol, Motrin, stress reduction techniques, allergies. Advised patient to present to the emergency room should he have sudden acute worsening of headaches, confusion, or any other concerning findings. Plan See above for full details and plan. Coding Level of Care Code Est Pt Level 3 (20680) Diagnoses CHAPARRO (generalized anxiety disorder) F41.1 Essential hypertension I10 Hypertension type: essential hypertension Allergic rhinitis, unspecified seasonality, unspecified trigger J30.9 Allergic rhinitis trigger: unspecified Allergic rhinitis seasonality: unspecified Acute intractable headache, unspecified headache type R51.9 Headache type: unspecified Headache chronicity pattern: acute headache Intractability: intractable
[2024-02-25 15:46] VITALS: BP 160/88
== END 2024-02-25 15:55 | disposition home or self-care (01) ==
PROVIDERS: PCP Physician Assistant; Visit Provider Registered Nurse
DX: F41.1 Generalized anxiety disorder (principal); I10 Essential (primary) hypertension; J30.9 Allergic rhinitis, unspecified; R51.9 Headache, unspecified

== ENCOUNTER 2024-03-25 10:33 | Outpatient (AMB) | payer MEDICARE, SELFPAY ==
[2024-03-25 10:43] VITALS: BP 148/82; PULSE 75; O2SAT 97; BMI 24.8
--- NOTE | 2024-03-25 10:43 | A.OFFPC_ITS ---
Vital Signs 03/25/24 10:43 Height 5 ft 9 in Weight 168 lb BMI 24.8 BP 148/82 H Blood Pressure Location Lt brachial Position Sitting Pulse 75 Pulse Source Pulse Oximeter Pulse Oximetry (%) 97 Oxygen Delivery Method Room Air Intake Visit Reasons: elevated BP and depression Allergies colchicine Adverse Reaction (Mild, Verified 03/25/24 10:43) Diarrhea Medication List - Last Reconciled 03/25/24 by Aleisha Calvo MD allopurinol 300 mg PO DAILY 90 days atorvastatin 40 mg PO DAILY 90 days carbamide peroxide 6.5% (Debrox) 5 drps otic (ears) DAILY 5 days carvedilol 6.25 mg PO BID cholecalciferol (vitamin D3) 50 mcg PO DAILY hydrochlorothiazide 12.5 mg PO DAILY 90 days lisinopril 40 mg PO DAILY 90 days omeprazole 20 mg PO DAILY verapamil ER 240 mg PO DAILY Tobacco use date assessed: 03/25/24 Fall risk assessment: No Falls in past year Last assessed Fall Risk: 03/25/24 Dental Screening Dental Screen Date: 03/25/24 Did you have a dental visit in the last 12 months?: Yes Did you have a dental problem in the last 6 months where you did not have access to dental care?: No Was dental information given to patient?: Patient has dentist HPI elevated BP and depression HPI Details The patient is a 73year-old male presenting with elevated blood pressure and concerns related to mental health. His hypertension has been long- standing, with elevated readings both at home and in medical settings, notably spiking to 173/over 90 and 171 over 85 at this visit. The issue began to worsen recently, possibly due to increased stress associated with his 's dementia diagnosed a year and a half ago. Due to his 's condition, he experiences stress and anxiety, particularly notable during the holiday season, which he believes contributes to elevated blood pressure. Further complicating his case, a range of antihypertensive medications, including carvedilol, lisinopril, hydrochlorothiazide, and verapamil, have been prescribed. However, his blood pressure remains elevated despite the current therapeutic regimen. The patient reported discontinuation of triamterene due to insurance issues, which preceded an increase in blood pressure. Additionally, he has hyperlipidemia managed with atorvastatin. He experiences anxiety, for which no treatment has yet been initiated. Historically, the patient presented with gout controlled with allopurinol, while a prior episode associated with colchicine was discontinued due to gastrointestinal side effects. He also has a history of gastroesophageal reflux disease, managed effectively with omeprazole after an ulcer diagnosis over two decades ago. Mild anemia was noted in December 2022 labs. The patient abstained from alcohol following the recent blood pressure spike and has no history of tobacco or illicit drug use. His gallbladder was removed previously, adding to his surgical history. [facility] Medical History (Updated 03/25/24 @ 11:24 by Aleisha Calvo MD) Peptic ulcer disease Screening for AAA (abdominal aortic aneurysm) Left ear impacted cerumen Gout Surgical History History of cholecystectomy Family History Father No problems noted. Mother No problems noted. 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 1. Little interest or pleasure in doing things: more than half the days 2. Feeling down, depressed, or hopeless: more than half the days 3. Trouble falling or staying asleep, or sleeping too much: several days 4. Feeling tired or having little energy: several days 5. Poor appetite or overeating: not at all 6. Feeling bad about yourself - or that you are a failure or have let yourself or your family down: not at all 7. Trouble concentrating on things, such as reading the newspaper or watching television: not at all 8. Moving or speaking so slowly that other people could have noticed. Or the opposite - being so fidgety or restless that you have been moving around a lot more than usual: not at all 9. Thoughts that you would be better off or of hurting yourself in some way: not at all Total score: 6 Depression Screening Interpretation: Negative Depression Screening Done: Yes 53412 - PHQ-9 Billing: Yes Source: Developed by Drs. Marky Giles, Helene Beebe, Kong Simpson and colleagues, with an educational sweetie from [employer]. Thrive Questionnaire Date Thrive assessed: 03/25/24 I am a: Patient What is your living situation today?: I have a steady place to live Within the past 12 months, did the food you bought not last and you didn't have the money to get more?: Never true Within the past 12 months, did you worry whether your food would run out before you got money to buy more?: Never true Do you have trouble paying for medicines?: No Do you have trouble getting transportation to medical appointments?: No Do you have trouble paying your heating and electricity bill?: No Do you have trouble taking care of your child, family member or friend?: No Do you have trouble with day-to-day activities such as bathing, preparing meals, shopping, managing finances, etc.?: No Are you currently unemployed and looking for a job?: No Are you interested in more education?: No Currently or been in a relationship where the following occur: No concerns reported THRIVE Score: 0 AUDIT C Alcohol Use Questionnaire (AUDIT-C) 1. How often do you have a drink containing alcohol?: Monthly or less (10 a month) 2. How many drinks containing alcohol do you have on a typical day when you are drinking?: 1 or 2 3. How often do you have six or more drinks on one occasion?: Never Total Score: 1 CHAPARRO-7 AMB Questionnaire CHAPARRO-7 Date CHAPARRO - 7 assessed: 03/25/24 Feeling nervous, anxious, or on edge: 0 = Not at all Not being able to stop or control worryin = Not at all Worrying too much about different things: 0 = Not at all Trouble relaxin = Not at all Being so restless that it is hard to sit still: 0 = Not at all Becoming easily annoyed or irritable: 0 = Not at all Feeling afraid as if something awful might happen: 0 = Not at all Total CHAPARRO-7 score (0-4 normal; 5-9 mild; 10-14 moderate; 15-21 severe): 0 Source: Developed by Drs. Marky Giles, Helene Beebe, Kong Simpson and colleagues, with an educational sweetie from [employer]. Physical exam (Primary Care) Vital Signs: Last Vital Signs Pulse 75 03/25/24 10:43 BP 148/82 H 03/25/24 10:43 Pulse Ox 97 03/25/24 10:43 Oxygen Delivery Method Room Air 03/25/24 10:43 BMI result Body Mass Index 24.8 Tobacco/Smoking Status: Tobacco use Status Tobacco use date assessed 03/25/24 03/25/24 10:44 Patient Tobacco Use Status Never used Tobacco 03/25/24 10:44 e-Cigarette/Vaping Use Never Used 03/25/24 10:44 PHQ-9: PHQ-9 Score PHQ-9: Total score 6 03/25/24 11:07 Depression Screening Interpretation: Negative Thrive Assessment: Date of Thrive Assessment Date Thrive assessed 03/25/24 03/25/24 10:44 Currently or been in a relationship where the following occur: No concerns reported Coding Level of Care Code Est Pt Level 4 (63395) Complex EM visit Add On G2211 Diagnoses Essential hypertension I10 Hypertension type: essential hypertension Mixed hyperlipidemia E78.2 Hyperlipidemia type: mixed hyperlipidemia CHAPARRO (generalized anxiety disorder) 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 Gout site: foot Gout etiology: idiopathic Chronicity: chronic Laterality: right Presence of tophus: without tophus Additional Codes PHQ-9 - 36531 - PHQ-9 Billing: Yes ([id number]) Assessment & Plan Assessment & Plan (1) HTN (hypertension): Code(s): I10 - Essential (primary) hypertension Category: Medical Qualifiers: Hypertension type: essential hypertension Qualified Code(s): I10 - Essential (primary) hypertension (2) HLD (hyperlipidemia): Code(s): E78.5 - Hyperlipidemia, unspecified Category: Medical Qualifiers: Hyperlipidemia type: mixed hyperlipidemia Qualified Code(s): E78.2 - Mixed hyperlipidemia (3) CHAPARRO (generalized anxiety disorder): Code(s): F41.1 - Generalized anxiety disorder Category: Medical (4) Gout: Comment: 40 min reviewing chart evaluating patient and documenting Code(s): M10.9 - Gout, unspecified Category: Medical Qualifiers: Gout site: foot Gout etiology: idiopathic Chronicity: chronic Laterality: right Presence of tophus: without tophus Qualified Code(s): M1A.0710 - Idiopathic chronic gout, right ankle and foot, without tophus (tophi) Plan 1. increasing carvedilol to improve blood pressure control: - Order an ultrasound of the kidneys to evaluate for potential secondary causes of resistant hypertension. - Monitor blood pressure regularly at home and at clinic visits. - Reinforce the importance of lifestyle modifications, including stress management strategies to address anxiety. - Continue atorvastatin for hyperlipidemia management and monitor lipid profiles. - Maintain current regimen for gout management with allopurinol. - No change to GERD therapy with omeprazole, as this remains effective in symptom control. - Arrange for mental health support, including therapy, to address anxiety associated with familial stressors. - Schedule follow-up for kidney ultrasound results and reassessment of blood pressure control. Orders: Orders US renal doppler Today I10 - Essential (primary) hypertension US renal BI Today I10 - Essential (primary) hypertension Medications: Changed From carvedilol 6.25 mg PO BID 180 tabs 1RF I10 - Essential (primary) hypertension To carvedilol 12.5 mg PO BID 60 tabs 2RF I10 - Essential (primary) hypertension
--- OUTSIDE RECORDS SUMMARY | 2024-03-25 11:38 | XMS_ITS ---
Author Organization [facility] Address [address] [place] [id number] Care Team Providers Care Retail Representative Name Role Phone Jonathan Varghese Primary Care Provider Unavailab Marky Zhao Unavailable [phone] ALLERGIES No Known Allergies REASON FOR VISIT Patient presents today for peptic ulcer disease, medication appt MEDICATIONS Medication SIG (Take, Route, Fr equency, Duration) Notes Start Date End Date Status Vitamin D Active Triamterene Active Gemfibrozil Active Simvastatin Active Omeprazole 20 MG TAKE 1 CAPSULE BY [facility] EVERY DAY for 90 Active Lisinopril Active Carvedilol Active Verapamil HCl Active PROBLEMS Problem Type ICD Code Onset Dates Problem Status W/U Status Risk SNOMED Code Notes Problem Exposure to hepatitis B (Z20.5) Active confirmed Exposure to Hepatitis B virus ([id number]) VITAL SIGNS BMI 24.66 kg/m2 06/28/2023 Blood pressure systolic 00 mm Hg 06/28/19 24 Blood pressure diastolic 00 mm Hg 024 Height 69 in 06/28/2023 Weight 167 lbs 06/28/2023 Encounters Encounter Location Date Provider Diagnosis [facility] [address] [place] [id number] 06/28/2023 Marky Torrez Gastroesophageal ref lux disease without esophagitis K21.9 ; Encounter for screening for malignant neoplasm of colon Z12.11 and Exposure to hepatitis B Z20.5 ASSESSMENTS Encounter Date Diagnosis Assessment Notes Treatment Notes Treatment Clinical Notes 06/28/2023 Gastroesophageal reflux disease without esophagitis (ICD-10 - K21.9) Continue daily omeprazole 06/28/2023 Encounter for screening for malignant neoplasm of colon (ICD-10 - Z12.11) Repeat colonoscopy in 202506/28/2023 Exposure to hepatiti s B (ICD-10 - Z20.5) PLAN OF TREATMENT Treatment Notes Assessment Notes Gastroesophageal reflux disease without esophagitis Continue daily omeprazole Encounter for screening for malignant ne oplasm of colon Repeat colonoscopy in 2025 Pending Test Test Name Order Date HEPATITIS B PROFILE 06/28/2023 Next Appt Details Follow Up: prn, Reason: Progress Notes * Examination Category Sub-Category Detail Notes General Examination GENERAL APPEARANCE: pleasant , well nourished, well developed, in no acute distress HEAD: EYES: sclera non-icteric EARS: NOSE: THROAT: NECK/THYROID: no cervical lymphade nopathy, neck supple HEART: S1, S2 normal CHEST: LUNGS: clear to auscultatio n bilaterally ABDOMEN: normal bowel sounds, no guarding or rigidity, no guarding or rigidity, no masses palpable, soft, nontender, nondistended NEUROLOGIC: alert and oriented SKIN: nonjaundiced, no spi familia angiomata EXTREMITIES: no edema PERIPHERAL PULSES: BACK: BREASTS: MUSCULOSKELETAL: MALE GENITOURINARY: LYMPH NODES: RECTAL EXAM: FEMALE GENITOURINARY: ORAL CAVITY: mucosa moist
--- OUTSIDE RECORDS SUMMARY | 2024-03-25 11:38 | XMS_ITS | Clinical Summary ---
Author Organization [facility] Address [address] [place] [address] Phone Care Team Providers Care Child Care Name Role Phone Unavailable Primary Care Provider Unavailabl e Encounters Date Type Department Care Team Description 02/04/2024 Lab Requisition [facility] [address] [facility] [place] [address] Junito Conley MD Asymptomatic microscopic hematuria from Last 3 Months Social History Tobacco Use Types Packs/Day Years Used Date Smoking Tobacco: Never Assessed Sex and Gender Information Value Date Recorded Sex Assigned at Not on file Gender Identity Not on file Sexual Orientation Not on file Plan of Treatment Health Maintenance Due Date Last Done Comments DTaP,Tdap,and Td Vaccines (1 - Tdap) 06/11/1967 Zoster Vaccines (1 of 2) 1998 Pneumococcal Vaccine: 65+ Ye ars (1 of 1 - PCV) 2013 RSV Immunization Patients 60 + Years Old (1 - 1-dose 75+ series) 06/11/2023 COVID-19 Vaccine ( - 2023-2 5 season) 2023 Influenza Vaccine (#1) 2023 Abdominal Aortic Aneurysm (A AA) Screen 02/04/2024 Cholesterol Screening (Lipid Panel) 02/04/2024 Colorectal Cancer Screening: Colonoscopy 02/04/2024 Depression Screening 02/04/2024 Falls Risk Assessment 02/04/2024 Hepatitis C Screening 02/04/2024 Medicare Annual Wellness Visit 02/04/2024 Social Influencers of Health Screening 02/04/2024 HIB Vaccines Aged Out No longer eligi ble based on patient's age to complete this topic HPV Vaccines Aged Out No longer eligi ble based on patient's age to complete this topic Hepatitis A Vaccines Aged Out No long er eligible based on patient's age to complete this topic Hepatitis B Vaccines Aged Out No long er eligible based on patient's age to complete this topic IPV Vaccines Aged Out No longer eligi ble based on patient's age to complete this topic MMR Vaccines Aged Out No longer eligi ble based on patient's age to complete this topic Meningococcal ACWY Vaccine Aged Out N o longer eligible based on patient's age to complete this topic RSV Immunization Patients Un familia 20 months Aged Out No longer eligible b ased on patient's age to complete this topic Varicella Vaccines Aged Out No longer eligible based on patient's age to complete this topic Procedures Procedure Name Priority Date/Time Associated Diagnosis Comments AP OUTSIDE CONSULT Routine 01/30/2024 12 :00 AM EST Asymptomatic microscopic hematuria from Last 3 Months Results * Anatomic pathology outside consult (01/30/2024 12:00 AM EST) Final Diagnosis Urine, Voided: Negative for high-grade urothelial carcinoma. 02/15/2024 5:54 PM EST [facility] Clinical Information [id number] Urine cytology w/reflex UroVysion. 02/15/2024 5:54 PM EST [facility] Gross Description A. Urine, Voided, : [id number] recd 1 TP slide. 02/15/2024 5:54 PM EST [facility] Disclaimer Unless otherwise specified, all tissue is 10% NB formalin fixed and paraffin embedded. Technical pathology services provided by [facility] at [address] [place] [address] [address], [place] [address] (CLIA #[id number] edilma Loco MD, Hydrology Professor) 02/15/2024 5:54 PM EST [facility] Tissue Urine specimen from urethra / Unknown 01/30/2024 02/04/2024 9:24 AM EST Junito Conley MD LAB PATHOLOGY ORDER ESE [facility] [address] [place] [address], from Last [address] JOSE MITCHELL, [place] [id number]
--- OUTSIDE RECORDS SUMMARY | 2024-03-25 11:38 | XMS_ITS ---
Author Organization [facility] Address [address] [place] [address] Care Team Providers Care Verifying Machine Operator Name Role Phone Jonathan Varghese Primary Care Provider Unavailab Marky Zhao Unavailable [phone] REASON FOR VISIT hne on 02-25-2021 Encounters Encounter Location Date Provider Diagnosis [facility] [address] [place] [address] 05/30/2023 Marky Torrez PLAN OF TREATMENT No Information
--- OUTSIDE RECORDS SUMMARY | 2024-03-25 11:38 | XMS_ITS ---
Author Organization [facility] Address [address] [place] [address] Care Team Providers Care Transport Aircrewman Name Role Phone Jonathan Varghese Primary Care Provider Unavailab Marky Zhao Unavailable [phone] REASON FOR VISIT update information Encounters Encounter Location Date Provider Diagnosis [facility] [address] [place] [address] 05/30/2023 Marky Torrez PLAN OF TREATMENT No Information
--- OUTSIDE RECORDS SUMMARY | 2024-03-25 11:38 | XMS_ITS | Encounter Summary ---
Author Organization [facility] Address [address] [place] [address] Care Team Providers Care Water Regulator And Valve Repairer Name Role Phone Unavailable Primary Care Provider Unavailabl e Encounter Details Date Type Department Care Team (Late st Contact Info) Description 02/04/2024 Lab Requisition [facility] Lab [address] [facility] [place] [address] Junito Conley MD [address] [facility] [address] [place] [address] Asymptomatic microscopic hematuria Social History Tobacco Use Types Packs/Day Years Used Date Smoking Tobacco: Never Assessed Sex and Gender Information Value Date Recorded Sex Assigned at Not on file Gender Identity Not on file Sexual Orientation Not on file documented as of this encounter Plan of Treatment Not on file documented as of this encounter Procedures Procedure Name Priority Date/Time Associated Diagnosis Comments AP OUTSIDE CONSULT Routine 01/30/2024 12 :00 AM EST Asymptomatic microscopic hematuria documented in this encounter Results * Anatomic pathology outside consult (01/30/2024 12:00 AM EST) Final Diagnosis Urine, Voided: Negative for high-grade urothelial carcinoma. 02/15/2024 5:54 PM EST [facility] Clinical Information [id number] Urine cytology w/reflex UroVysion. 02/15/2024 5:54 PM EST [facility] Gross Description A. Urine, Voided, : [id number] recd 1 TP slide. 02/15/2024 5:54 PM [facility] Disclaimer Unless otherwise specified, all tissue is 10% NB formalin fixed and paraffin embedded. Technical pathology services provided by [facility] at [address] [facility] [address], [place] [address] (CLIA #[id number]/S edilma Loco MD, Television Cable Installer) 02/15/2024 5:54 PM EST [facility] Tissue Urine specimen from urethra / Unknown 01/30/2024 02/04/2024 9:24 AM EST Junito Conley MD LAB PATHOLOGY ORDER ESE [facility] [address] [place] [address], documented in this encounter Visit Diagnoses Diagnosis Asymptomatic microscopic hematuria documented in this encounter
--- OUTSIDE RECORDS SUMMARY | 2024-03-25 11:38 | XMS_ITS | Patient Health Record ---
Author Organization [facility] Address [address] [place] [address] Care Team Providers Care Automatic Grinder Operator Name Role Phone Jonathan Varghese Primary Care Provider Rob Degroot Unavailable [phone] Allergies No Known Allergies Reason For Referral No Information Medications Medication SIG (Take, Route, Frequency, Duration) Notes Start Date End Date Status Vitamin D3 Super Strength 50 MCG (1999) 1 tablet Orally Once a day for 30 day(s) Active Triamterene-HCTZ 37.5-25 MG 1 tablet in the morning Orally Once a day for 30 day(s) Active Omeprazole 20 MG 1 capsule 30 minutes before morning meal Orally Once a day for 30 day(s) Active Lisinopril 40 MG 1 tablet Orally Once a day for 30 day(s) Active Colcrys 0.6 MG 1 tablet Orally Up t o Four times a day for 05 days 05/24/2023 Active Carvedilol 6.25 MG 1 tablet with food O rally Twice a day for 30 day(s) Active Atorvastatin Calcium 40 MG 1 tablet Oral ly Once a day for 30 day(s) Active Colcrys 0.6 MG 1 tablet Orally once a day for 10 days 03/15/2022 Active Verapamil HCl ER 240 MG 1 tablet Orally Once a day for 30 day(s) Active Immunizations Vaccine Route Administration Date Status Comme nts COVID-19 Pfizer BioNTech Vaccine Unknown 01/06/2022 Administered 2020,2020 2020 Influenza Unknown 11/26/2021 Administered Social History Tobacco Use: Social History Observation Description Date Details (start date - stop date) Never Smoker NA - NA Tobacco Use/Smoking Question Answer Notes Are you a: nonsmoker Additional Findings: Tobacco Non-User Current no n-smoker Alcohol Screen Question Answer Notes Did you have a drink contain ing alcohol in the past year? Yes How often did you have a dri nk containing alcohol in the past year? Monthly or less (1 point) How many drinks did you have on a typical day when you were drinking in the past year? 10 or more drinks (4 points) How often did you have 6 or more drinks on one occasion in the past year? Less than monthly (1 point) Points 6 Interpretation Positive Tobacco use other than smoking: Question Answer Notes Are you an other tobacco user? 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) Active confirmed Problem Acquired hammer toe of right foot (2988052861377 105) Acquired hammer toe of right foot (M20.41) Active confirmed Problem 244462571 Gouty arthritis (M10.9) Active confirmed Vital Signs Blood pressure diastolic 80 mm Hg 05/24/2023 Height 5 ft 9 in in 05/24/2023 Blood pressure systolic 130 mm Hg 05/24/2023 Weight 168 lbs 05/24/2023 BMI 24.81 kg/m2 05/24/2023 Encounters Encounter Location Date Provider [facility] [address] 05/24/2023 Rob Jiménez Pain in right foot M79.671 ; Pain in right toe(s) M79.674 ; Gouty arthritis M10.9 and Acquired hammer toe of right foot M20.[address] [facility] [address] 05/28/2023 Rob Jiménez Assessments Encounter Date Diagnosis (ICD Code) Assessment Notes Treatment Notes Treatment Clinical Notes Section Notes 05/24/2023 Pain in right toe(s) (ICD-10 - M79.674) 05/24/2023 Pain in right foot (ICD-10 - M79.671) 05/24/2023 Gouty arthritis (ICD-10 - M10.9) 05/24/2023 Acquired hammer toe of right foot (ICD-10 - M20.41) Plan Of Treatment Pending Test Test Name Order Date *Uric Acid, Serum 03/31/2020 *Uric Acid, Serum 03/15/2022 *Uric Acid, Serum 05/24/2023 *Sedimentation Rate-Westergren 4 *Sedimentation Rate-Westergren 3 *Sedimentation Rate-Westergren 1 X ray : Foot, left 3V 03/31/2020 X ray : Foot, right 3V 05/24/2023 Insurance Providers Payer Name Payer Address Payer Phone Subscriber Number Group Number Insured Name Patient Relationship to Insured Coverage Start Date Coverage End Date [address] [place] [phone] [id number] Kaleb Ponce Self - patient is the insured Medical (General) History Medical History History ICD Code Gall bladder problems High blood pressure Surgical History Surgery Date(Month/Year) gall bladder
--- OUTSIDE RECORDS SUMMARY | 2024-03-25 11:39 | XMS_ITS ---
Author Organization [facility] Address [address] [place] [address] Care Team Providers Care Service Writer Advisor Name Role Phone Jonathan Varghese Primary Care Provider Unavailab Rob Reynoso [phone] REASON FOR VISIT gout Encounters Encounter Location Date Provider Diagnosis [facility] [address] [place] [address] 05/28/2023 Rob Jiménez Plan Of Treatment No Information Progress Notes * CHRISTINAKalebDOB:[birth year] (72 yo M)Acc No.[id number]:05/28/2023 Patient:?Kaleb Ponce :1950???Age:72 Y???Sex:Male Address:[address] [place] [address], [address] * true * Date:? Generated for Briannei soco/Eduardo/eTransmitting on:?03/25/2024 11:38 AM EST
--- OUTSIDE RECORDS SUMMARY | 2024-03-25 11:39 | XMS_ITS ---
Author Organization [facility] Address [address] [place] [address] Care Team Providers Care Regional Agronomist Name Role Phone Jonathan Varghese Primary Care Provider UnavailRob Linder Unavailable [phone] Encounters Encounter Location Date Provider Diagnosis [facility] [address] [place] [address] 03/07/2023 Rob Jiménez Plan Of Treatment No Information Progress Notes * Kaleb VASQUEZDOB:[birth year] (73 yo M)Acc No.[id number]:03/07/2023 Progress Note Patient:Kaleb HAAS Provider:?Rob Jiménez DPM :1950???Age:72 Y???Sex:Male Silas e:03/07/2023 Address:[address] [place], [place] [id number] Pcp:Jonathan Varghese Subjective: * Chief Complaints: * ??? * Medical History:? Objective: * Vitals:? Assessment: Plan: * Treatment: * Images: * The named appointment provid er may or may not be the originator of this progress note, and it is not deemed complete until electronically signed by the appointment provider. Sign off status: Pending * Provider:Yo Jiménez DPM Date:? 024 Generated for Printi ng/Faxing/eTransmitting on:?03/25/2024 11:39 AM EST
--- OUTSIDE RECORDS SUMMARY | 2024-03-25 11:39 | XMS_ITS ---
Author Organization [facility] Address [address] [address] Care Team Providers Care Cooking Teacher Name Role Phone Jonathan Varghese Primary Care Provider UnavailRob Linder Unavailable [phone] Allergies No Known Allergies REASON FOR VISIT Last PCP Visit: 01/2023, Painful toe(s) Medications Medication SIG (Take, Route, Frequency, Duration) Notes Start Date End Date Status Vitamin D3 Super Strength 50 MCG (1999 UT) 1 tablet Orally Once a day for 30 day(s) Active Triamterene-HCTZ 37.5-25 MG 1 tablet in the morning Orally Once a day for 30 day(s) Active Colcrys 0.6 MG 1 tablet Orally Up t o Four times a day for 05 days 05/24/2023 Active Colcrys 0.6 MG 1 tablet Orally once a day for 10 days 03/15/2022 Active Verapamil HCl ER 240 MG 1 tablet Orally Once a day for 30 day(s) Active Omeprazole 20 MG 1 capsule 30 minutes before morning meal Orally Once a day for 30 day(s) Active Lisinopril 40 MG 1 tablet Orally Once a day for 30 day(s) Active Carvedilol 6.25 MG 1 tablet with food O rally Twice a day for 30 day(s) Active Atorvastatin Calcium 40 MG 1 tablet Oral ly Once a day for 30 day(s) Active Social History Tobacco Use: Social History Observation [...] Problem Status W/U Status Risk Notes Problem 218904346 Gouty arthritis (M10.9) Active confirmed Problem Acquired hammer toe of right foot (9359102983121 105) Acquired hammer toe of right foot (M20.41) Active confirmed Vital Signs Blood pressure systolic 130 mm Hg 05/24/19 24 Blood pressure diastolic 80 mm Hg 024 Height 5 ft 9 in in 05/24/2023 Weight 168 lbs 05/24/2023 BMI 24.81 kg/m2 05/24/2023 Encounters Encounter Location Date Provider Diagnosis [facility] [address] [place] [address] 05/24/2023 Rob Jiménez Pain in right foot M79.671 ; Pain in right toe(s) M79.674 ; Gouty arthritis M10.9 and Acquired hammer toe of right foot M20.41 Assessments Encounter Date Diagnosis (ICD Code) Assessment Notes Treatment Notes Treatment Clinical Notes Section Notes 05/24/2023 Pain in right foot (ICD-10 - M79.671) 05/24/2023 Pain in right toe(s) (ICD-10 - M79.674) 05/24/2023 Gouty arthritis (ICD-10 - M10.9) 05/24/2023 Acquired hammer toe of right foot (ICD-10 - M20.41) Plan Of Treatment Medication Medication Name Sig Start Date Stop Date Notes Colcrys 0.6 MG 1 tablet Orally Up t o Four times a day for 05 days 05/24/2023 Pending Test Test Name Order Date *Uric Acid, Serum 05/24/2023 *Sedimentation Rate-Westergren X ray : Foot, right 3V 05/24/2023 Next Appt Details Follow Up: prn, Reason: Progress Notes * Kaleb VASQUEZDOB:[birth year] (72 yo M)Acc No.[id number]:05/24/2023 Progress Note Patient:Kaleb Pierce Provider:?Rob Jiménez DPM :1950???Age:72 Y???Sex:Male Silas e:05/24/2023 Address:[address] [place], [place] [address] Pcp:Jonathan Varghese Subjective: * Chief Complaints: * ??? Last PCP Visit: ainful toe(s) * HPI: ???Toe pain:?Nature:?tenderness, swelling, stiffness, inflammed.?Location:?5th toe, Right foot.?Duration:?several months.?Onset/Cause:?gout.?Course:?worse.?Aggrevated by:?shoes, any pressure.?Severity/Quality:?moderate.? * ROS:?General/Constitutional:?Nausea?denies, denies.?Vomiting?denies, denies.?Hunger Thirst?denies, denies.?Loss appetite?denies, denies.?Chills?denies, denies.?Fatigue?denies, denies.?Fever?denies, denies.?Night Sweats denies, denies.?Unexplained weight loss?denies, denies.?Unexplained weight gain?denies.?Ophthalmologic:?Blurred vision?denies.?Red eye?denies.?HEENTM:?Dentures?denies, denies.?Dizziness?denies, denies.?Glasses/contacts?denies, denies.?Retinopathy?denies, denies.?Blurred/double vision?denies, denies.?TMJ?denies, denies.?Discharge/drainage?denies, denies.?Implants?denies, denies.?Sore throat?denies.?Dental implants?denies.?Hard of hearing ?denies, denies.?Difficulty chewing/swallowing/speaking?denies, denies.?Nose bleeds?denies, denies.?Sore mouth?denies, denies.?Swollen glands?denies.?Respiratory:?On Oxygen?denies, denies.?Pneumonia/pleurisy?denies, denies.?Bronchitis?denies, denies.?Emphysema?denies, denies.?Coughing?denies, denies.?Cough blood?denies, denies.?Shortness of breath?denies, denies.?Wheezing?denies, denies.?Cardiovascular:?Pacemaker?denies, denies.?MVP?denies, denies.?WPW?denies, denies.?CHF?denies, denies.?Heart attack?denies, denies.?Septal defect?denies, denies.?Rapid beat?denies, denies.?Chest pain ?denies, denies.?Atrial Fib.?denies, denies.?Murmur/Palpitations?denies, denies.?Gastrointestinal:?Hemorrhoids?denies, denies.?Stomach/Abdominal pain?denies, denies.?Dark blood stool?denies, denies.?Irritable bowel ?denies, denies.?Constipation?denies, denies.?Diarrhea?denies, denies.?Vomiting?denies.?Hematology:?Swelling?denies, denies.?Clots?denies.?Varicose Veins?denies.?Bruising?denies, denies.?Bleeding problem?denies, denies.?Genitourinary:?Blood urine?denies, denies.?Frequent/Painfu/urination/bladder control?denies, denies.?Kidney stones?denies, denies.?Infection (UTI)?denies, denies.?Nephropathy?denies, denies.?sex trans dis (STD)?denies.?Prostate?denies.?Musculoskeletal:?Hammertoes?denies, denies.?Bunions?denies, denies.?Scoliosis/kyphosis?denies.?Back Pain?denies.?Muscle Cramps/ Resting?denies.?Muscle cramps / walking?denies, denies.?Generalized aches and pains?denies, denies.?Weakness?denies, denies.?Integ.:?Kelly?denies, denies.?Scars?denies, denies.?Corns/calluses?denies, denies.?Ingrown nails?denies, denies.?Painful nails?denies, denies.?Open Sores?denies.?Rashes?denies, denies.?Neurologic:?Difficulty sleeping?denies, denies.?Bipolar?denies.?Brain disorder?denies, denies.?Numbness?denies.?Balance trouble?denies, denies.?Confusion?denies, denies.?Fainting/blackouts?denies, denies.?Headache?denies.?Tingling?denies.?Tremors?denies, denies.? * Medical History:? * Surgical History:?mariluz bladd er * Hospitalization/Major Diagno stic Procedure:?Denies Past Hospitalization * Family History:?Mother: dece ased, diagnosed with Unspecified essential hypertension, Unspecified heart disease.?Father: , diagnosed with Unspecified essential hypertension, Unspecified heart disease.? * Social History:?Tobacco Use:?Tobacco Use/Smoking?Are you a:?nonsmoker ?Additional Findings: Tobacco Non-User?Current non-smoker ?Tobacco use other than smoking?Are you an other tobacco user??No ???Drugs/Alcohol:?Drugs?Have you used drugs other than those for medical reasons in the past 12 months??No ?Alcohol Screen?Did you have a drink containing alcohol in the past year??Yes ?How often did you have a drink containing alcohol in the past year??Monthly or less (1 point) ?How many drinks did you have on a typical day when you were drinking in the past year??10 or more drinks (4 points) ?How often did you have 6 or more drinks on one occasion in the past year??Less than monthly (1 point) ?Points?6 ?Interpretation?Positive ???Miscellaneous:?Caffeine: yes, 3-5 cups per week soda. ?Children: yes. ?Exercise: yes, walking. ?Marital status: . 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 * Medications:?TakingAtorvasta tin Calcium 40 MG Tablet 1 tablet Orally Once a dayCarvedilol 6.25 MG Tablet 1 tablet with food Orally Twice a dayLisinopril 40 MG Tablet 1 tablet Orally Once a dayOmeprazole 20 MG Capsule Delayed Release 1 capsule 30 minutes before morning meal Orally Once a dayTriamterene-HCTZ 37.5-25 MG Tablet 1 tablet in the morning Orally Once a dayVitamin D3 Super Strength 50 MCG (2000 UT) Tablet 1 tablet Orally Once a dayVerapamil HCl ER 240 MG Tablet Extended Release 1 tablet Orally Once a dayColcrys 0.6 MG Tablet 1 tablet Orally once a dayMedication List reviewed and reconciled with the patientTaking Atorvastatin Calcium 40 MG Tablet 1 tablet Orally Once a dayTaking Carvedilol 6.25 MG Tablet 1 tablet with food Orally Twice a dayTaking Lisinopril 40 MG Tablet 1 tablet Orally Once a dayTaking Omeprazole 20 MG Capsule Delayed Release 1 capsule 30 minutes before morning meal Orally Once a dayTaking Triamterene-HCTZ 37.5-25 MG Tablet 1 tablet in the morning Orally Once a dayTaking Vitamin D3 Super Strength 50 MCG (2000 UT) Tablet 1 tablet Orally Once a dayTaking Verapamil HCl ER 240 MG Tablet Extended Release 1 tablet Orally Once a dayTaking Colcrys 0.6 MG Tablet 1 tablet Orally once a dayMedication List reviewed and reconciled with the patient * Allergies:?N.K.D.A.yes[Aller gies Verified] Objective: * Vitals:?Ht: 5 ft 9 in, Wt:16 8, BMI:24.81, Shoe size:11.5, BP:130/80 mm Hg. * Examination: ???General Examination: ?GENERAL APPEARANCE:?pleasant, alert, well nourished, well developed, well hydrated, with good attention to hygene/body habitus, and in no acute distress.?ORIENTED:?person,place, and time.?Neurological: ?SENSORY:?Neurological exam reveals intact sensorium, pain sensation normal, vibration sensation intact, pinprick sensation is normal in the lower extremities, Pt denies, anesthesia, burning, paresthesia, tingling, B/L.?BABINSKI REFLEX:?absent.?Vascular: ?DP PULSES:?2/4, B/L.?PT PULSES:?2/4, B/L.?CAPILLARY FILL TIME:?3 secs. per digit, B/L.?SKIN TEMPERTURE GRADIENT OF THE LOWER EXTERMITIES:?warm to cool, proximal to distal, B/L.?HAIR GROWTH/TEXTURE/ELASTICITY/TURGOR:?normal, B/L.?PIGMENTATION:?normal, B/L.?EDEMA:?no edema, B/L.?TELANGECTASIA:?absent.?VARICOSITIES:?absent.?Dermatologic: ?SKIN FINDINGS:? Skin shows sign(s) of erythema and edema t9.?Orthopedic: ?MUSCLE STRENGTH:?5/5 all groups in a symmetrical fashion , B/L.?GAIT ABNORMALITY:?pronated, abducted, B/L.?DIGITAL DEFORMITIES:? Digital contracturet9--rigid ht.?X-Rays - IMAGING REPORT: ?Clinical Indication(s):? Evaluate for Fracture, Evaluate Biomechanical Deformity.?Views:? 3 views of Foot, RIGHT.?Digits:? show asymmetrical joint space narrowing at the PIPJ consistent with clinical finding of hammertoe deformity, show uneven joint space narrowing with hypertrophy of bone of dipj t9.? Assessment: * Assessment: 1.?Pain in right toe(s) - M7 9.674?2.?Pain in right foot - M79.671 (Primary)?3.?Gouty arthritis - M10.9?4.?Acquired hammer toe of right foot - M20.41? Plan: * Treatment: 2.?Gouty arthritis? Start Colcrys Tablet, 0.6 MG, 1 tablet, Orally, Up to Four times a day, 05 days, 20, Refills 0.?? * Procedure Codes:?71160 X-RAY EXAM OF RIGHT FOOT 3V, Modifiers: 26 , [id number] 1 pc drainable ost pouch * Preventive Medicine:? ??Counseling:?Discussion:?-14: Office or other outpatient visit for the evaluation and management of an established patient, which required a medically appropriate history and/or examination and MODERATE level of DECISION MAKING for: 1 OR MORE CHRONIC PROBLEM(S) THATS WORSENING, 2 STABLE CHRONIC PROBLEMS, A NEWLY DIAGNOSED PROBLEM WITH UNCERTAIN PROGNOSIS, AN ACUTE COMPLICATED INJURY WITH MULTIPLE TREATMENT OPTIONS, OR AN ACUTE PROBLEM WITH ACCOMPANYING SYSTEMIC SYMPTOMS, THAT POSE(S) A MODERATE RISK OF MORBIDITY. THIS CONDITION MAY ALSO INCLUDE RX DRUG MANAGEMENT, OR A DECISON FOR MINOR SURGERY. The visit on the day of the encounter encompassed interpreting the data and educating the patient as to the nature of their condition, treatment options available according to their individual PMH, meds, allergies, and overall health/living conditions, as well as any potential risks or complications that may occur from a failure to adhere to, and participate in, the recommended course of therapy. The discussion included a complete verbal, and/or written explanation of the examination results, any x-rays taken, the proposed diagnosis, and outline of the treatment plan. A schedule for future care needs was also explained. The patient verbalized an understanding of the instructions at this time and agreed to be an active participant in their treatment. If the patient should think of any questions or concerns after the visit, I have encouraged the patient to call the office--pt to resume colchicine and allopurinol and PPC should keep pt on allopurinol permanently.?Gout:?I explained to the patient the possible etiologies for Gout, including genetic, excess dietary protein, excess dietary sugar, alcohol, diuretic medications, dehydration, and/or previous surgery. An information sheet re: the foods to enjoy as well as avoid was dispensed and detailed at the time of visit. We discussed the risks/benefits of all the different treatment options for Gout including: No treatment at all, Rest, Ice, NSAIDs(only if well tolerated after meals), Oral steroids, Colchicine, New/supportive Shoegear, Foot/Ankle AFO Bracing, Arch support/shoe inserts, Custom orthoses, Topical analgesics including Aspercream/Voltaren gel/Custom compounded combination therapy, and Dietary modification. Advantages and disadvantages of each option were discussed and the patients questions re: shoegear, custom vs prefabricated inserts, activity level, PO vs Topical medications (and their respective potential complications/drug interactions/side effects including the possible interaction with statin medications ), diet, and consistency in home treatment regimens for optimal success were answered to their verbally confirmed satisfaction.? * Follow Up:?prn * Images: * Sign off status: Completed true * Provider:?Rob Jiménez DPM Date:? 024 Generated for Ginny wan/Eduardo/Sangeetha on:?03/25/2024 11:39 AM EST History and Physical Notes * HPI (History of Present Illness) Category Sub-Category Detail Notes Category Not es Toe pain Nature: tenderness, swelling, stiffn ess, inflammed Location: 5th toe, Right foot Duration: several months Onset/Cause: gout Course: worse Aggravated by: shoes, any pressure Severity/Quality: moderate Examination Category Sub-Category Detail Notes Category Not es Neurological SENSORY: Neurological exa m reveals intact sensorium, pain sensation normal, vibration sensation intact, pinprick sensation is normal in the lower extremities, Pt denies, anesthesia, burning, paresthesia, tingling, B/L BABINSKI REFLEX: absent Dermatologic SKIN FINDINGS: Skin shows sign(s) of eryt everardo and edema t9 Orthopedic GAIT ABNORMALITY: pronated, abducted, B/L DIGITAL DEFORMITIES: Digital contracture t9--rigid ht MUSCLE STRENGTH: 5/5 all groups in a symmetrical fashion , B/L General Examination GENERAL APPEARANCE: pleasant , alert, well nourished, well developed, well hydrated, with good attention to hygene/body habitus, and in no acute distress ORIENTED: person,place, and ti me Vascular DP PULSES (B): 2/4, B/L PT PULSES (B): 2/4, B/L CAPILLARY FILL TIME: 3 secs. per digit, B/L TEMPERTURE GRADIENT (C): warm to cool, p roximal to distal, B/L TROPHIC CONDITION-TEXTURE/ELASTICITY/TURGOR/HAIR GROWTH (B): normal, B/L EDEMA (C): no edema, B/L TELANGECTASIA: absent VARICOSITIES: absent PIGMENTATION: normal, B/L X-Rays - IMAGING REPORT Digits: show asy mmetrical joint space narrowing at the PIPJ consistent with clinical finding of hammertoe deformity, show uneven joint space narrowing with hypertrophy of bone of dipj t9 Views: 3 views of Foot, RIG HT Clinical Indication(s): Evaluate for Fra cture, Evaluate Biomechanical Deformity
--- OUTSIDE RECORDS SUMMARY | 2024-03-25 11:39 | XMS_ITS | Patient Health Record ---
Author Organization [facility] Address [address] [place] [address] Care Team Providers Care Machine Tool Designer Name Role Phone Jonathan Varghese Primary Care Provider UnavailMarky Junior Unavailable [phone] ALLERGIES No Known Allergies RESULTS Component Value Reference Range Notes Hepatitis B Profile Reviewed date:07/11/2023 10:51:25 PM Interpretation: Performing Lab:[facility], [address] [place] [phone] Notes/Report: Hepatitis B Surface Antibody REACTIVE Nonreactive REACTIVE: > 11.99 mIU/mL Hepatitis B Core Antibody Nonreactive Nonreactive Hepatitis B Surface Antigen Negative Negative REASON FOR REFERRAL No Information MEDICATIONS Medication SIG (Take, Route, Fr equency, Duration) Notes Start Date End Date Status Vitamin D Active Omeprazole 20 MG TAKE 1 CAPSULE BY [facility] EVERY DAY for 90 Active Triamterene Active Gemfibrozil Active Lisinopril Active Carvedilol Active Simvastatin Active Verapamil HCl Active SOCIAL HISTORY Sex Assigned At : Social History Observation Description Sex Assigned At Unknown PROBLEMS Problem Type ICD Code Onset Dates Problem Status W/U Status Risk SNOMED Code Notes Problem Peptic ulcer disease (K27.9) Active confirmed 87683254 Problem Gastroesophageal reflux disease without esophagitis (K21.9) Active confirmed 091076968 Problem Encounter for screening for malignant neoplasm of colon (Z12.11) Active confirmed 361991692 Problem Encounter for screening for malignant neoplasm of rectum (Z12.12) Active confirmed Screening for malignant neoplasm of rectum (192453218) Problem Exposure to hepatitis B (Z20.5) Active confirmed Exposure to Hepatitis B virus (918644420) VITAL SIGNS Blood pressure diastolic 00 mm Hg 06/28/2023 Height 69 in 06/28/2023 Blood pressure systolic 00 mm Hg 06/28/2023 Weight 167 lbs 06/28/2023 BMI 24.66 kg/m2 06/28/2023 Encounters Encounter Location Date Provider Diagnosis [facility] [address] [place] [address] 06/28/2023 Marky Torrez Gastroesophageal ref lux disease without esophagitis K21.9 ; Encounter for screening for malignant neoplasm of colon Z12.11 and Exposure to hepatitis B Z20.5 [facility] [address] [place] [address] 05/30/2023 Marky Torrez [facility] [address] [place] [address] 05/30/2023 Marky Torrez ASSESSMENTS Encounter Date Diagnosis Assessment Notes Treatment Notes Treatment Clinical Notes 06/28/2023 Encounter for screening for malignant neoplasm of colon (ICD-10 - Z12.11) Repeat colonoscopy in 202506/28/2023 Gastroesophageal reflux disease without esophagitis (ICD-10 - K21.9) Continue daily omeprazole 06/28/2023 Exposure to hepatiti s B (ICD-10 - Z20.5) PLAN OF TREATMENT Pending Test Test Name Order Date HEPATITIS B PROFILE 06/28/2023 Future Test Test Name Order Date COLONOSCOPY 04/16/2015 Insurance Providers Payer Name Payer Address Payer Phone Subscriber Number Group Number Insured Name Patient Relationship to Insured Coverage Start Date Coverage End Date [facility] [address] [place], [place] [id number] THONY VASQUEZ Self - patient is the insured MEDICAL (GENERAL) HISTORY Medical History History ICD Code Hypertension Hyperlipidemia Denies NM,DM,CVA,Lung disease,renal dise ase [place] [address] Johnson--negat nicko for polyps Neg. screening colonoscopy in 05/2015 EGD in 10/2009--this revealed a mild distal esophageal ring which was dilated, gastric and duodenal ulcers,, and gastric biopsies that were negative for H. pylori Surgical History Surgery Date(Month/Year) Cholecystectomy
== END 2024-03-25 11:42 | disposition home or self-care (01) ==
PROVIDERS: PCP Physician Assistant; Visit Provider Internal Medicine
DX: I10 Essential (primary) hypertension (principal); E78.2 Mixed hyperlipidemia; F41.1 Generalized anxiety disorder; M1A.0710 Idiopathic chronic gout, right ankle and foot, without tophus (tophi)

== ENCOUNTER → 2024-03-25 10:33 | Outpatient (BNVA) | payer MEDICARE, SELFPAY | PROVIDERS: PCP Physician Assistant; Visit Provider Internal Medicine | DX: I10 Essential (primary) hypertension (principal); E78.2 Mixed hyperlipidemia; F41.1 Generalized anxiety disorder; M1A.0710 Idiopathic chronic gout, right ankle and foot, without tophus (tophi) | CPT/HCPCS: 96127; 99212 ==

== ENCOUNTER 2024-04-09 09:47 | Outpatient (REF) | payer MEDICARE, SELFPAY ==
--- NOTE | ~2024-04-09 | US_ITS ---
CLINICAL HISTORY: I10 - Essential (primary) hypertension US Renal with Doppler Comparison: None Findings: Right kidney normal size and echotexture, 10 cm length. 1 cm upper pole cyst. No hydronephrosis. Normal color Doppler. Proximal renal artery 148 cm/S, mid 215 cm/S, distal 189 cm/S. Resistive index: 0.7 in the upper pole, 0.7 in the midpole and 0.7 in the lower pole Left kidney normal size and echotexture, 11 cm length. 1.8 cm midpole cyst. No hydronephrosis. Normal color Doppler. Proximal renal artery 162 cm/S, mid 150 cm/S, distal 97 cm/S. Resistive index: 0.7 in the upper pole, 0.7 in the midpole and 0.7 in the lower pole Aorta velocity 118 cm/S IMPRESSION: The findings are suggestive of right renal artery stenosis. This document has been electronically signed by: Timothy Garcia MD on 04/09/2024 16:37:28
--- OUTSIDE RECORDS SUMMARY | 2024-04-09 11:19 | XMS_ITS ---
Author Organization [facility] Address [address] [place] [address] Care Team Providers Care Critical Care Specialist Name Role Phone Jonathan Varghese Primary Care Provider Unavailab Marky hZao Unavailable [phone] REASON FOR VISIT hne on 02-25-2021 Encounters Encounter Location Date Provider Diagnosis [facility] [address] [place] [address] 05/30/2023 Marky Torrez PLAN OF TREATMENT No Information
--- OUTSIDE RECORDS SUMMARY | 2024-04-09 11:20 | XMS_ITS | Patient Health Record ---
Author Organization [facility] Address [address] [place] [address] Care Team Providers Care Park Interpretive Specialist Name Role Phone Jonathan Varghese Primary Care Provider UnavailMarky Junior Unavailable [phone] ALLERGIES No Known Allergies RESULTS Component Value Reference Range Notes Hepatitis B Profile Reviewed date:07/11/2023 10:51:25 PM Interpretation: Performing Lab:[facility], [address] [place] [phone] Notes/Report: Hepatitis B Surface Antibody REACTIVE Nonreactive REACTIVE: > 11.99 mIU/mL Hepatitis B Core Antibody Nonreactive Nonreactive Hepatitis B Surface Antigen Negative Negative REASON FOR REFERRAL No Information MEDICATIONS Medication SIG (Take, Route, Fr equency, Duration) Notes Start Date End Date Status Vitamin D Active Omeprazole 20 MG TAKE 1 CAPSULE BY [facility] EVERY DAY for 90 Active Triamterene Active Gemfibrozil Active Lisinopril Active Carvedilol Active Simvastatin Active Verapamil HCl Active SOCIAL HISTORY Sex Assigned At : Social History Observation Description Sex Assigned At Unknown PROBLEMS Problem Type ICD Code Onset Dates Problem Status W/U Status Risk SNOMED Code Notes Problem Peptic ulcer disease (K27.9) Active confirmed 50122249 Problem Gastroesophageal reflux disease without esophagitis (K21.9) Active confirmed 526485755 Problem Encounter for screening for malignant neoplasm of colon (Z12.11) Active confirmed 258144778 Problem Encounter for screening for malignant neoplasm of rectum (Z12.12) Active confirmed Screening for malignant neoplasm of rectum (769305999) Problem Exposure to hepatitis B (Z20.5) Active confirmed Exposure to Hepatitis B virus (797357980) VITAL SIGNS Blood pressure diastolic 00 mm Hg 06/28/2023 Height 69 in 06/28/2023 Blood pressure systolic 00 mm Hg 06/28/2023 Weight 167 lbs 06/28/2023 BMI 24.66 kg/m2 06/28/2023 Encounters Encounter Location Date Provider Diagnosis [facility] [address] [place] [address] 06/28/2023 Marky Torrez Gastroesophageal ref lux disease without esophagitis K21.9 ; Encounter for screening for malignant neoplasm of colon Z12.11 and Exposure to hepatitis B Z20.5 [facility] [address] [place] [address] 05/30/2023 Marky oTrrez [facility] [address] [place] [address] 05/30/2023 Marky Torrez ASSESSMENTS Encounter Date Diagnosis [...] Insured Coverage Start Date Coverage End Date [facility] [address] [place], [place] [id number] THONY VASQUEZ Self - patient is the insured MEDICAL (GENERAL) HISTORY Medical History History ICD Code Hypertension Hyperlipidemia Denies MD,DM,CVA,Lung disease,renal dise ase [place] [address] Johnson--negat nicko for polyps Neg. screening colonoscopy in 05/2015 EGD in 10/2009--this revealed a mild distal esophageal ring which was dilated, gastric and duodenal ulcers,, and gastric biopsies that were negative for H. pylori Surgical History Surgery Date(Month/Year) Cholecystectomy
--- OUTSIDE RECORDS SUMMARY | 2024-04-09 11:20 | XMS_ITS | Clinical Summary ---
Author Organization [facility] Address [address] [place] [address] Phone Care Team Providers Care Mechanical Equipment Test Engineer Name Role Phone Unavailable Primary Care Provider Unavailabl e Encounters Date Type Department Care Team Description 02/04/[address] [facility] - [facility] [address] [facility] [place] [address] Junito Conley MD Asymptomatic microscopic hematuria from Last 3 Months Social History Tobacco Use Types Packs/Day Years Used Date Smoking Tobacco: Never Assessed Sex and Gender Information Value Date Recorded Sex Assigned at Not on file Legal Sex Male 9:16 AM EST Gender Identity Not on file Sexual Orientation Not on file Plan of Treatment Health Maintenance Due Date Last Done Comments DTaP,Tdap,and Td Vaccines (1 - Tdap) 06/11/1967 Pneumococcal Vaccine: 50+ Ye ars (1 of 1 - PCV) 1998 Zoster Vaccines (1 of 2) 1998 RSV Immunization Patients 60 + Years Old [...] patient's age to complete this topic Meningococcal B Vacine Aged Out No lo nger eligible based on patient's age to complete [...] for high-grade urothelial carcinoma. 02/15/2024 5:54 PM [facility] Clinical Information [id number] Urine cytology w/reflex UroVysion. 02/15/2024 5:54 PM [facility] Gross Description A. Urine, Voided, : [id number] recd 1 TP slide. 02/15/2024 5:54 PM [facility] Disclaimer Unless otherwise specified, all tissue is 10% NB formalin fixed and paraffin embedded. Technical pathology services provided by [facility] [address] [facility] [address] [place] [address] (CLIA #[id number]/S edilma Loco MD, Nursery Nurse) 02/15/2024 5:54 PM [facility] Tissue Urine specimen from urethra / Unknown 01/30/2024 02/04/2024 9:24 AM EST us Junito Conley MD LAB PATHOLOGY ORDERABLES Fi nal Result [facility] [address] [place] [address], from Last 3 Months Insurance [employer] MEDICARE ADVANTAGE
--- OUTSIDE RECORDS SUMMARY | 2024-04-09 11:20 | XMS_ITS ---
Author Organization [facility] Address [address] [place] [address] Care Team Providers Care Division Sergeant Name Role Phone Jonathan Varghese Primary Care Provider Unavailab Rob Reynoso [phone] REASON FOR VISIT gout Encounters Encounter Location Date Provider Diagnosis [facility] [address] [place] [address] 05/28/2023 Rob Jiménez Plan Of Treatment No Information Progress Notes * CHRISTINAKalebDOB:[birth year] (72 yo M)Acc No.[id number]:05/28/2023 Patient:?Kaleb Ponce :1950???Age:72 Y???Sex:Male Address:[address] [place] [address], [address] * true * Date:? Generated for Briannei soco/Eduardo/eTransmitting on:?04/09/2024 11:20 AM EST
--- OUTSIDE RECORDS SUMMARY | 2024-04-09 11:20 | XMS_ITS ---
Author Organization [facility] Address [address] [place] [address] Care Team Providers Care Door Closer Mechanic Name Role Phone Jonathan Varghese Primary Care Provider Unavailab Marky Zhao Unavailable [phone] ALLERGIES No Known Allergies REASON FOR VISIT Patient presents today for peptic ulcer disease, medication appt MEDICATIONS Medication SIG (Take, Route, Fr equency, Duration) Notes Start Date End Date Status Vitamin D Active Triamterene Active Gemfibrozil Active Simvastatin Active Omeprazole 20 MG TAKE 1 CAPSULE BY [facility] EVERY DAY for 90 Active Lisinopril Active Carvedilol Active Verapamil HCl Active PROBLEMS Problem Type ICD Code Onset Dates Problem Status W/U Status Risk SNOMED Code Notes Problem Exposure to hepatitis B (Z20.5) Active confirmed Exposure to Hepatitis B virus (177048248) VITAL SIGNS BMI 24.66 kg/m2 06/28/2023 Blood pressure systolic 00 mm Hg 06/28/19 24 Blood pressure diastolic 00 mm Hg 024 Height 69 in 06/28/2023 Weight 167 lbs 06/28/2023 Encounters Encounter Location Date Provider Diagnosis [facility] [address] [place] [address] 06/28/2023 Marky Torrez Gastroesophageal ref lux disease [...]
--- OUTSIDE RECORDS SUMMARY | 2024-04-09 11:20 | XMS_ITS ---
Author Organization [facility] Address [address] [address] Care Team Providers Care Net Lead Developer Name Role Phone Jonathan Varghese Primary Care Provider UnavailRob Linder Unavailable [phone] Allergies No Known Allergies REASON FOR VISIT [...] Problem Status W/U Status Risk Notes Problem 045967204 Gouty arthritis (M10.9) Active confirmed Problem Acquired hammer toe of right foot (7891246963505 105) Acquired hammer toe of right foot (M20.41) Active confirmed Vital Signs Height 5 ft 9 in in 05/24/2023 Weight 168 lbs 05/24/2023 BMI 24.81 kg/m2 05/24/2023 Blood pressure systolic 130 mm Hg 05/24/19 24 Blood pressure diastolic 80 mm Hg 024 Encounters Encounter Location Date Provider Diagnosis [facility] [address] [place] [address] 05/24/2023 Rob Jiménez Pain in right foot [...] * Kaleb VASQUEZDOB:[birth year] (72 yo M)Acc No.[id number]:05/24/2023 Progress Note Patient:Kaleb Pierce Provider:?Rob Jiménez DPM :1950???Age:72 Y???Sex:Male Silas e:05/24/2023 Address:[address] [place], [place] [id number] Pcp:Jonathan Varghese Subjective: * Chief Complaints: * [...] ?Exercise: yes, walking. ?Marital status: . 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 * Medications:?TakingAtorvasta tin Calcium 40 MG Tablet [...] 05 days, 20, Refills 0.?? * Procedure Codes:?97880 X-RAY EXAM OF RIGHT FOOT 3V, Modifiers: 26 , PVS6925 1 pc drainable ost pouch * Preventive [...] DPM Date:? 024 Generated for Ginny wan/Eduardo/Sangeetha on:?04/09/2024 11:20 AM EST History and Physical Notes * [...]
--- OUTSIDE RECORDS SUMMARY | 2024-04-09 11:20 | XMS_ITS | Encounter Summary ---
Author Organization [facility] Address [address] [place] [address] Care Team Providers Care Digital X Ray Service Engineer Name Role Phone Unavailable Primary Care Provider Unavailabl e Encounter Details Date Type Department Care Team (Late st Contact Info) Description 02/04/2024 Lab Requisition [facility] - Main Lab [address] [facility] [place] [address] Junito Conley MD [address] [address] Asymptomatic microscopic hematuria Social History Tobacco Use [...] high-grade urothelial carcinoma. 02/15/2024 5:54 PM EST [facility] Clinical Information [id number] Urine cytology w/reflex UroVysion. 02/15/2024 5:54 PM EST [facility] Gross Description A. Urine, Voided, : [id number] recd 1 TP slide. 02/15/2024 5:54 PM EST [facility] Disclaimer Unless otherwise specified, all tissue is 10% NB formalin fixed and paraffin embedded. Technical pathology services provided by [facility] [address] [facility] [address] [place] [address] (CLIA #[id number]/S edilma Loco MD, News Agent) 02/15/2024 5:54 PM EST [facility] Tissue Urine specimen from urethra / Unknown 01/30/2024 02/04/2024 9:24 AM EST us Junito Conley MD LAB PATHOLOGY ORDERABLES Fi nal Result [facility] [address] [place] [address], documented in this encounter Visit Diagnoses Diagnosis Asymptomatic microscopic hematuria documented in this encounter
--- OUTSIDE RECORDS SUMMARY | 2024-04-09 11:20 | XMS_ITS ---
Author Organization [facility] Address [address] [place] [address] Care Team Providers Care Erp Project Manager Name Role Phone Jonathan Varghese Primary Care Provider Unavailab Marky Zhao Unavailable [phone] REASON FOR VISIT update information Encounters Encounter Location Date Provider Diagnosis [facility] [address] [place] [address] 05/30/2023 Marky Torrez PLAN OF TREATMENT No Information
--- OUTSIDE RECORDS SUMMARY | 2024-04-09 11:20 | XMS_ITS | Patient Health Record ---
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) Active confirmed Problem Acquired hammer toe of right foot (2237607284759 105) Acquired hammer toe of right foot (M20.41) Active confirmed Problem 354849587 Gouty arthritis (M10.9) Active confirmed Vital Signs Blood pressure diastolic 80 mm Hg 05/24/2023 Height 5 ft 9 in in 05/24/2023 Blood pressure systolic 130 mm Hg 05/24/2023 Weight 168 lbs 05/24/2023 BMI 24.81 kg/m2 05/24/2023 Encounters Encounter Location Date [facility] [address] 05/24/2023 Rob Jiménez Pain in right foot M79.671 ; Pain in right toe(s) M79.674 ; Gouty arthritis M10.9 and Acquired hammer toe of right foot M20.41 [facility] [address] 05/28/2023 Rob Jiménez Assessments Encounter Date Diagnosis [...] Start Date Coverage End Date [employer] [address] [place] [id number] Kaleb Ponce Self - patient is the insured Medical (General) History Medical History History ICD Code Gall bladder problems High blood pressure Surgical History Surgery Date(Month/Year) gall bladder
--- OUTSIDE RECORDS SUMMARY | 2024-04-09 11:21 | XMS_ITS ---
Author Organization [facility] Address [address] [place] [address] Care Team Providers Care Religious Education Teacher Name Role Phone Jonathan Varghese Primary Care Provider UnavailRob Linder Unavailable [phone] Encounters Encounter Location Date Provider Diagnosis [facility] [address] [place] [address] 03/07/2023 Rob Jiménez Plan Of Treatment No Information Progress Notes * Kaleb VASQUEZDOB:[birth year] (73 yo M)Acc No.[id number]:03/07/2023 Progress Note Patient:Kaleb HAAS Provider:?Rob Jiménez DPM :1950???Age:72 Y???Sex:Male Silas e:03/07/2023 Address:[address] [place], [place] [phone] Pcp:Jonathan Varghese Subjective: * Chief Complaints: * ??? * Medical History:? Objective: * Vitals:? Assessment: Plan: * Treatment: * Images: * The named appointment provid er may or may not be the originator of this progress note, and it is not deemed complete until electronically signed by the appointment provider. Sign off status: Pending * Provider:Yo Jiménez DPM Date:? 024 Generated for Printi ng/Fapoppyg/eTransmitting on:?04/09/2024 11:20 AM EST
== END 2024-04-09 09:48 | disposition home or self-care (01) ==
LOC: HO.HMGCX 09:47
PROVIDERS: PCP Physician Assistant; Visit Provider Internal Medicine
DX: I10 Essential (primary) hypertension (principal)
CPT/HCPCS: 76775; 93975

== ENCOUNTER → 2024-04-09 09:49 | Outpatient (BNV) | payer MEDICARE, SELFPAY | PROVIDERS: PCP Physician Assistant; Visit Provider Nuclear Medicine | DX: I10 Essential (primary) hypertension (principal) | CPT/HCPCS: 76775; 93975 ==

== ENCOUNTER 2024-04-25 09:43 | Outpatient (AMB) | payer MEDICARE, SELFPAY ==
--- NOTE | 2024-04-25 10:09 | HO.NEPHOV ---
Vital Signs 04/25/24 10:11 Height 5 ft 9 in Weight 164 lb 8 oz BMI 24.3 BP 134/60 Blood Pressure Location Lt brachial Position Sitting Pulse 73 Pulse Source Pulse Oximeter Pulse Oximetry (%) 96 Oxygen Delivery Method Room Air Intake Visit Reasons: INP: Right renal artery stenosis-Conf Ammonium Nitrate Neutralizer Required: No Accompanied by: Self / Same As Patient Allergies colchicine Adverse Reaction (Mild, Verified 05/23/24 15:12) Diarrhea HPI Comments Details: I had the pleasure of seeing Kaleb who is a 73 year-old male with elevated blood pressure. His hypertension has been long-standing, with elevated readings both at home and in medical settings, notably spiking to 173/over 90 and 171 over 85. It began to worsen recently, possibly due to increased stress associated with his 's dementia diagnosed a year and a half ago. Due to his 's condition, he experiences stress and anxiety, particularly notable during the holiday season, which he believes contributes to elevated blood pressure. He had taken a range of antihypertensive medications, including carvedilol, lisinopril, hydrochlorothiazide, and verapamil. However, his blood pressure remains elevated despite the current therapeutic regimen. The patient reported discontinuation of triamterene due to insurance issues, which preceded an increase in blood pressure. He has gout which is well controlled with allopurinol. He undwent USS to R/O AAA which showed right renal artery stenosis. He denies CAD, CVA, carotid disease or PAD. He denies taking excess sodium in the diet. He has no PND, orthopnea or edema. His recent serum creatinine has been 1.2 PFS Medical History (Updated 05/23/24 @ 15:29 by Aleisha Calvo MD) Peptic ulcer disease Screening for AAA (abdominal aortic aneurysm) Left ear impacted cerumen Gout Surgical History History of cholecystectomy Family History Father No problems noted. Mother No problems noted. 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 Cognitive needs: No Hearing needs: No Vision needs: Yes Review of Systems Const All systems reviewed & are unremarkable except as noted in HPI and below Physical Exam Vital Signs: Last Vital Signs Pulse 73 04/25/24 10:11 BP 134/60 04/25/24 10:11 Pulse Ox 96 04/25/24 10:11 Oxygen Delivery Method Room Air 04/25/24 10:11 BMI result Body Mass Index 24.3 Const General: comfortable and no acute distress Orientation/consciousness: patient oriented x3 HEENT Head: Yes normocephalic Mouth: Normal oral and palatal mucosa present Eyes EOM: EOMs intact bilaterally Neck Neck: Yes supple Resp Auscultation: clear to auscultation bilaterally Cardio Jugular venous distension: no JVD Rate: regular rate GI Palpation (GI): Soft to palpation Auscultation: normal bowel sounds General: Yes no CVA tenderness Back/Spine/Pelvis Back: no CVA tenderness Skin General skin exam: no rashes or lesions noted Neuro General: patient oriented x3 and moves all extremities Extrem General: Yes no pedal edema Results Reviewed Nephrology Results: Renal US 04/09/24 Assessment & Plan Assessment & Plan (1) CKD stage 3a, GFR 45-59 ml/min: Code(s): N18.31 - Chronic kidney disease, stage 3a Category: Medical (2) 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 He has MARY ALICE and renal ischemia causing ischemic nephropathy which is leading to his CKD. He is on ACEI as well as HCTZ among other BP lowering agents. I may need to back off on HCTZ if his serum creatinine rises. He may be a good candidate for Spironolactone. If BP continues to be labile and needs more medications or if his GFR drops / develops HF, he will need renal angiogram/plasty sooner than later. He should maintain low sodium diet and increase hydration & avoid NSAID's. All these have been explained in detail. F/U labs ordered. Answered all questions. Orders: Orders Creatinine 3 Months N18.31 - Chronic kidney disease, stage 3a, I70.1 - Atherosclerosis of renal artery, I15.0 - Renovascular hypertension Electrolytes 3 Months N18.31 - Chronic kidney disease, stage 3a, I70.1 - Atherosclerosis of renal artery, I15.0 - Renovascular hypertension Blood Urea Nitrogen 3 Months N18.31 - Chronic kidney disease, stage 3a, I70.1 - Atherosclerosis of renal artery, I15.0 - Renovascular hypertension Coding Level of Care Code New Pt Level 4 (30448) Diagnoses CKD stage 3a, GFR 45-59 ml/min N18.31 Ischemic nephropathy with atherosclerotic renal artery stenosis I70.1 Renovascular hypertension I15.0
[2024-04-25 10:11] VITALS: BP 134/60; PULSE 73; O2SAT 96; BMI 24.3
--- OUTSIDE RECORDS SUMMARY | 2024-04-25 10:30 | XMS_ITS ---
Author Organization [facility] Address [address] [place] [address] Care Team Providers Care Carpenter Railcar Name Role Phone Jonathan Varghese Primary Care Provider Unavailab Marky Zhao Unavailable [phone] REASON FOR VISIT hne on 02-25-2021 Encounters Encounter Location Date Provider Diagnosis [facility] [address] [place] [address] 05/30/2023 Marky Torrez PLAN OF TREATMENT No Information
--- OUTSIDE RECORDS SUMMARY | 2024-04-25 10:31 | XMS_ITS ---
Author Organization [facility] Address [address] [place] [address] Care Team Providers Care Packaging Supervisor Name Role Phone Jonathan Varghese Primary Care Provider Unavailab Marky Zhao Unavailable [phone] ALLERGIES No Known Allergies REASON FOR VISIT Patient presents today for peptic ulcer disease, medication appt MEDICATIONS Medication SIG (Take, Route, Fr equency, Duration) Notes Start Date End Date Status Vitamin D Active Triamterene Active Gemfibrozil Active Simvastatin Active Omeprazole 20 MG TAKE 1 CAPSULE BY [facility] EVERY DAY for 90 Active Lisinopril Active Carvedilol Active Verapamil HCl Active PROBLEMS Problem Type ICD Code Onset Dates Problem Status W/U Status Risk SNOMED Code Notes Problem Exposure to hepatitis B (Z20.5) Active confirmed Exposure to Hepatitis B virus (631034062) VITAL SIGNS Blood pressure systolic 00 mm Hg 06/28/19 24 Blood pressure diastolic 00 mm Hg 024 Height 69 in 06/28/2023 Weight 167 lbs 06/28/2023 BMI 24.66 kg/m2 06/28/2023 Encounters Encounter Location Date Provider Diagnosis [facility] [address] [place] [phone] 06/28/2023 Marky Torrez Gastroesophageal ref lux disease [...]
--- OUTSIDE RECORDS SUMMARY | 2024-04-25 10:31 | XMS_ITS | Clinical Summary ---
Author Organization [address] [facility] Address [address] [place] [address] Phone Care Team Providers Care Mini Lab Operator Name Role Phone Unavailable Primary Care Provider Unavailabl e Encounters Date Type Department Care Team Description 02/04/2024 Lab Requisition [facility] - Main Lab [address] [facility] [place] [address] Junito Conley MD Asymptomatic microscopic [...] for high-grade urothelial carcinoma. 02/15/2024 5:[address] [facility] Clinical Information [id number] Urine cytology w/reflex UroVysion. 02/15/2024 5:[address] [facility] Gross Description A. Urine, Voided, : [id number] recd 1 TP slide. 02/15/2024 5:[address] [facility] Disclaimer Unless otherwise specified, all tissue is 10% NB formalin fixed and paraffin embedded. Technical pathology services provided [facility] [address] [facility] [address] [place] [address] (CLIA #[id number]/S edilma Loco MD, High School Academic Coach) 02/15/2024 5:[address] [facility] Tissue Urine specimen from urethra / Unknown 01/30/2024 02/04/2024 9:24 AM EST us Junito Conley MD LAB PATHOLOGY ORDERABLES Fi nal Result [facility] ([facility] [address] [place] [address], from Last 3 Months Insurance [employer] MEDICARE [employer]VANTAGE
--- OUTSIDE RECORDS SUMMARY | 2024-04-25 10:31 | XMS_ITS | Encounter Summary ---
Author Organization [facility] Address [address] [place] [address] Care Team Providers Care Mold Swabber Name Role Phone Unavailable Primary Care Provider Unavailabl e Encounter Details Date Type Department Care Team (Late st Contact Info) Description 02/04/2024 Lab Requisition [facility] - Main Lab [address] [facility] [place] [address] Junito Conley MD [address] [address] Asymptomatic microscopic hematuria Social History Tobacco Use [...] high-grade urothelial carcinoma. 02/15/2024 5:54 PM EST [facility] Clinical Information [id number] Urine cytology w/reflex UroVysion. 02/15/2024 5:54 PM EST [facility] Gross Description A. Urine, Voided, : [id number] recd 1 TP slide. 02/15/2024 5:54 PM EST [facility] Disclaimer Unless otherwise specified, all tissue is 10% NB formalin fixed and paraffin embedded. Technical pathology services provided by [facility] [address] [facility] [facility] [address] [place] [address] (CLIA #[id number]/S edilma Loco MD, Photographer Model) 02/15/2024 5:54 PM EST [facility] Tissue Urine specimen from urethra / Unknown 01/30/2024 02/04/2024 9:24 AM EST us Junito Conley MD LAB PATHOLOGY ORDERABLES Fi nal Result [facility] [address] [place] [address], documented in this encounter Visit Diagnoses Diagnosis Asymptomatic microscopic hematuria documented in this encounter
--- OUTSIDE RECORDS SUMMARY | 2024-04-25 10:31 | XMS_ITS ---
Author Organization [facility] Address [address] [place] [address] Care Team Providers Care Forest Fire Officer Name Role Phone Jonathan Varghese Primary Care Provider Unavailab Marky Zhao Unavailable [phone] REASON FOR VISIT update information Encounters Encounter Location Date Provider Diagnosis [facility] [address] [place] [address] 05/30/2023 Marky Torrez PLAN OF TREATMENT No Information
--- OUTSIDE RECORDS SUMMARY | 2024-04-25 10:31 | XMS_ITS ---
Author Organization [facility] Address [address] [place] [address] Care Team Providers Care Back Hoe Machine Operator Name Role Phone Jonathan Varghese Primary Care Provider UnavailRob Linder [facility] [phone] Encounters Encounter Location Date Provider Diagnosis [facility] [address] [place] [address] 03/07/2023 Rob Jiménez Plan Of Treatment No Information Progress Notes * Kaleb VASQUEZDOB:[birth year] (73 yo M)Acc No.[id number]:03/07/2023 Progress Note Patient:Kaleb HAAS Provider:?Rob Jiménez DPM :1950???Age:72 Y???Sex:Male Silas e:03/07/2023 Address:[address] [place], [place] [id number] Pcp:Jonathan Varghese Subjective: * Chief Complaints: * [...] DPM Date:? 024 Generated for Printi ng/Fapoppyg/eTransmitting on:?04/25/2024 10:31 AM EST
--- OUTSIDE RECORDS SUMMARY | 2024-04-25 10:31 | XMS_ITS | Patient Health Record ---
Author Organization [facility] Address [address] [place] [address] Care Team Providers Care Cement Paver Name Role Phone Jonathan Varghese Primary Care Provider UnavailMarky Junior Unavailable [phone] ALLERGIES No Known Allergies RESULTS Component Value Reference Range Notes Hepatitis B Profile Reviewed date:07/11/2023 10:51:25 PM Interpretation: Performing Lab:[facility], [address] [place] [phone] Notes/Report: Hepatitis B Surface Antibody REACTIVE Nonreactive REACTIVE: > 11.99 mIU/mL Hepatitis B Core Antibody Nonreactive Nonreactive Hepatitis B Surface Antigen Negative Negative REASON FOR REFERRAL No Information MEDICATIONS Medication SIG (Take, Route, Fr equency, Duration) Notes Start Date End Date Status Vitamin D Active Omeprazole 20 MG TAKE 1 CAPSULE BY [facility] EVERY DAY for 90 Active Triamterene Active Gemfibrozil Active Lisinopril Active Carvedilol Active Simvastatin Active Verapamil HCl Active SOCIAL HISTORY Sex Assigned At : Social History Observation Description Sex Assigned At Unknown PROBLEMS Problem Type ICD Code Onset Dates Problem Status W/U Status Risk SNOMED Code Notes Problem Encounter for screening for malignant neoplasm of colon (Z12.11) Active confirmed 027692008 Problem Encounter for screening for malignant neoplasm of rectum (Z12.12) Active confirmed Screening for malignant neoplasm of rectum (130450959) Problem Gastroesophageal reflux disease without esophagitis (K21.9) Active confirmed 862512337 Problem Peptic ulcer disease (K27.9) Active confirmed 93245023 Problem Exposure to hepatitis B (Z20.5) Active confirmed Exposure to Hepatitis B virus (486230497) VITAL SIGNS Blood pressure diastolic 00 mm Hg 06/28/2023 Height 69 in 06/28/2023 Blood pressure systolic 00 mm Hg 06/28/2023 Weight 167 lbs 06/28/2023 BMI 24.66 kg/m2 06/28/2023 Encounters Encounter Location Date Provider Diagnosis [facility] [address] [place] [address] 06/28/2023 Marky Torrez Gastroesophageal ref lux disease without esophagitis K21.9 ; Encounter for screening for malignant neoplasm of colon Z12.11 and Exposure to hepatitis B Z20.5 [facility] [address] [place] [address] 05/30/2023 Marky Torrez [facility] [address] [place] [address] 05/30/2023 Marky Torrez ASSESSMENTS Encounter Date Diagnosis [...] Insured Coverage Start Date Coverage End Date [facility] [address] [place], [place] [id number] THONY VASQUEZ Self - patient is the insured MEDICAL (GENERAL) HISTORY Medical History History ICD Code Hypertension Hyperlipidemia Denies IA,DM,CVA,Lung disease,renal dise ase Colonoscopy [place] [address] Johnson--negat nicko for polyps Neg. screening colonoscopy in 05/2015 EGD in 10/2009--this revealed a mild distal esophageal ring which was dilated, gastric and duodenal ulcers,, and gastric biopsies that were negative for H. pylori Surgical History Surgery Date(Month/Year) Cholecystectomy
--- OUTSIDE RECORDS SUMMARY | 2024-04-25 10:31 | XMS_ITS | Patient Health Record ---
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) Active confirmed Problem Acquired hammer toe of right foot (3635945792842 105) Acquired hammer toe of right foot (M20.41) Active confirmed Problem 267646250 Gouty arthritis (M10.9) Active confirmed Vital Signs Blood pressure diastolic 80 mm Hg 05/24/2023 Height 5 ft 9 in in 05/24/2023 Blood pressure systolic 130 mm Hg 05/24/2023 Weight 168 lbs 05/24/2023 BMI 24.81 kg/m2 05/24/2023 Encounters Encounter [facility] [address] [facility]/24/[facility] Rob Jiménez Pain in right foot M79.671 ; Pain in right toe(s) M79.674 ; Gouty arthritis M10.9 and Acquired hammer toe of right foot M20.41 [facility] [address] 05/28/2023 Rob Jiménez Assessments Encounter Date Diagnosis [...] Start Date Coverage End Date [employer] [id number] [place] [address] [id number] Kaleb Ponce Self - patient is the insured Medical (General) History Medical History History ICD Code Gall bladder problems High blood pressure Surgical History Surgery Date(Month/Year) gall bladder
--- OUTSIDE RECORDS SUMMARY | 2024-04-25 10:31 | XMS_ITS ---
Author Organization [facility] Address [address] [place] [address] Care Team Providers Care Flitch Hanger Name Role Phone Jonathan Varghese Primary Care Provider UnavailRob Linder Unavailable [phone] Allergies No Known Allergies REASON FOR VISIT [...] Problem Status W/U Status Risk Notes Problem 144341335 Gouty arthritis (M10.9) Active confirmed Problem Acquired hammer toe of right foot (6842612896451 105) Acquired hammer toe of right foot (M20.41) Active confirmed Vital Signs Height 5 ft 9 in in 05/24/2023 Weight 168 lbs 05/24/2023 BMI 24.81 kg/m2 05/24/2023 Blood pressure systolic 130 mm Hg 05/24/19 24 Blood pressure diastolic 80 mm Hg 024 Encounters Encounter Location Date Provider Diagnosis [facility] [address] [place] [address] 05/24/2023 Rob Jiménez Pain in right foot [...] * Kaleb VASQUEZDOB:[birth year] (72 yo M)Acc No.[id number]:05/24/2023 Progress Note Patient:Kaleb Pierce Provider:?Rob Jiménez DPM :1950???Age:72 Y???Sex:Male Silas e:05/24/2023 Address:[address] [place], [place] [phone] Pcp:Jonathan Varghese Subjective: * Chief Complaints: * [...] ?Exercise: yes, walking. ?Marital status: . 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 * Medications:?TakingAtorvasta tin Calcium 40 MG Tablet [...] 05 days, 20, Refills 0.?? * Procedure Codes:?63851 X-RAY EXAM OF RIGHT FOOT 3V, Modifiers: 26 , [id number] 1 pc drainable ost pouch * Preventive [...] DPM Date:? 024 Generated for Ginny wan/Eduardo/Sangeetha on:?04/25/2024 10:31 AM EST History and Physical Notes * [...]
--- OUTSIDE RECORDS SUMMARY | 2024-04-25 10:31 | XMS_ITS ---
Author Organization [facility] Address [address] [place] [address] Care Team Providers Care Heater Tender Name Role Phone Jonathan Varghese Primary Care Provider Unavailab Rob Reynoso [phone] REASON FOR VISIT gout Encounters Encounter Location Date Provider Diagnosis [facility] [address] [place] [address] 05/28/2023 Rob Jiménez Plan Of Treatment No Information Progress Notes * CHRISTINAKalebDOB:[birth year] (72 yo M)Acc No.[id number]:05/28/2023 Patient:?Kaleb Ponce :1950???Age:72 Y???Sex:Male Address:[address] [place] [address], [address] * true * Date:? Generated for Briannei soco/Eduardo/eTransmitting on:?04/25/2024 10:31 AM EST
== END 2024-04-25 10:32 | disposition home or self-care (01) ==
PROVIDERS: PCP Physician Assistant; Referring Provider Internal Medicine; Visit Provider Internal Medicine Nephrology
DX: I12.9 Hypertensive chronic kidney disease with stage 1 through stage 4 chronic kidney disease, or unspecified chronic kidney disease (principal); N18.31 Chronic kidney disease, stage 3a; I70.1 Atherosclerosis of renal artery
CPT/HCPCS: 99204

== ENCOUNTER → 2024-04-25 09:43 | Outpatient (BNVA) | payer MEDICARE, SELFPAY | PROVIDERS: PCP Physician Assistant; Referring Provider Internal Medicine; Visit Provider Internal Medicine Nephrology | DX: N18.31 Chronic kidney disease, stage 3a (principal); I70.1 Atherosclerosis of renal artery; I15.0 Renovascular hypertension | CPT/HCPCS: 99202 ==

== ENCOUNTER 2024-05-23 14:31 | Outpatient (AMB) | payer MEDICARE, SELFPAY ==
--- NOTE | 2024-05-23 14:53 | A.OFFVIS_ITS ---
Vital Signs 05/23/24 15:02 Height 5 ft 9 in Weight 168 lb 8 oz BMI 24.9 BP 136/70 Blood Pressure Location Lt brachial Position Sitting Pulse 67 Pulse Source Pulse Oximeter Temp 97.1 F Temp Source Temporal Artery Scan Pulse Oximetry (%) 97 Oxygen Delivery Method Room Air Intake Visit Reasons: Hypertension Box Car Loader Required: No Accompanied by: Self / Same As Patient Allergies colchicine Adverse Reaction (Mild, Verified 05/23/24 15:12) Diarrhea Medication List - Last Reconciled 05/23/24 by Aleisha Calvo MD allopurinol 300 mg PO DAILY 90 days atorvastatin 40 mg PO DAILY 90 days carvedilol 12.5 mg PO BID cholecalciferol (vitamin D3) 50 mcg PO DAILY lisinopril 40 mg PO DAILY 90 days omeprazole 20 mg PO DAILY verapamil ER 240 mg PO DAILY PFSH Medical History (Updated 05/23/24 @ 15:29 by Aleisha Calvo MD) Peptic ulcer disease Screening for AAA (abdominal aortic aneurysm) Left ear impacted cerumen Gout Surgical History History of cholecystectomy Family History Father No problems noted. Mother No problems noted. 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 Cognitive needs: No Hearing needs: No Vision needs: Yes Physical Exam Vital Signs: Last Vital Signs Temp 97.1 F 05/23/24 15:02 Pulse 67 05/23/24 15:02 BP 136/70 05/23/24 15:02 Pulse Ox 97 05/23/24 15:02 Oxygen Delivery Method Room Air 05/23/24 15:02 BMI result Body Mass Index 24.9 Const General: alert; No acute distress Eyes Conjunctivae: conjunctivae normal Resp Auscultation: clear to auscultation bilaterally Cardio Rate: regular rate Rhythm: regular rhythm GI Inspection: Yes normal to inspection Extrem General: Yes normal to inspection and No edema Assessment & Plan Assessment & Plan (1) Renovascular hypertension: Code(s): I15.0 - Renovascular hypertension Category: Medical Plan: Is being followed up by Nephrology on carvedilol 12.5 mg twice a day hydrochlorothiazide 12.5 mg once a day lisinopril 40 mg once a day and verapamil 240 mg once a day patient was advised to get blood work and concern about hydrochlorothiazide (2) CKD stage 3a, GFR 45-59 ml/min: Code(s): N18.31 - Chronic kidney disease, stage 3a Category: Medical Plan: Avoid NSAIDs continue with blood pressure control but monitor blood work (3) HLD (hyperlipidemia): Code(s): E78.5 - Hyperlipidemia, unspecified Category: Medical Qualifiers: Hyperlipidemia type: mixed hyperlipidemia Qualified Code(s): E78.2 - Mixed hyperlipidemia Plan: Avoid fried foods, chicken skin, eggs, butter margarine, pastries and meat. Be it pork or beef they have a lot of cholesterol on atorvastatin 40 mg once a day December blood work is at goal. (4) CHAPARRO (generalized anxiety disorder): Code(s): F41.1 - Generalized anxiety disorder Category: Medical Plan: Stable (5) Impaired fasting blood sugar: Code(s): R73.01 - Impaired fasting glucose Category: Medical Plan History of Present Illness The patient is a 73-year-old male presenting with a follow-up for chronic kidney disease and management of hypertension. He has been diagnosed with stage 3A chronic kidney disease, specifically ischemic nephropathy, with contributory factors including atherosclerotic renal artery stenosis and renovascular hypertension. He underwent a renal ultrasound that confirmed right renal artery stenosis. The patient expressed concerns about hydrochlorothiazide impacting his renal function, and blood tests were requested. As of the last blood work, renal function measured a creatinine level of 1.2 mg/dL, showing stability from previous evaluations. Additionally, his most recent laboratory results in December significant for anemia (hemoglobin at 13.6 g/dL) and slightly elevated blood sugar levels (116 mg/dL). LDL cholesterol was well-controlled. 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 The patient's medication regimen includes faradilol, lisinopril, verapamil, and he expressed concern about hydrochlorothiazide which was subsequently discontinued. Health Maintenance - Cholesterol management effective with atorvastatin 40 mg. - Vaccinations up to date as of for pneumococcal, tetanus, and shingles. - Follow-up and prevention of potential increased blood sugar levels through dietary adjustments were discussed. - Continuous blood pressure monitoring, focusing on preventing complications related to hypertension and kidney function. 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 - Admitted to a high intake of sweets influencing blood glucose levels. - Expressed concerns regarding hydration affecting renal health related to occupation. Review of Systems - General: Reports feeling stressed. - ENT: Denies recent vision problems; last eye examination was two years ago. - Musculoskeletal: Denies any physical restrictions. - Neurological: Denies issues affecting bus driving capabilities. Physical Exam Results - Labs: Hemoglobin 13.6 g/dL, Hematocrit 39.8%, Creatinine 1.2 mg/dL, Fasting glucose 116 mg/dL, LDL cholesterol 53 mg/dL. - Imaging: Renal ultrasound indicating right renal artery stenosis. Plan The management strategy involves addressing essential hypertension and chronic kidney disease by tailoring the medication regimen and maintaining atorvastatin for effective lipid control. Hydrochlorothiazide was discontinued due to potential adverse effects on kidney health. The patient will continue scheduled vaccinations and monitoring of blood pressure and glucose levels. Nutritional guidance emphasized reducing sweets to manage hyperglycemia, and increasing water intake to support renal function has been recommended. A follow-up with nephrology has been pre-scheduled for continued evaluation of renal status. Patient was informed and verbally consented to the use of an ambient scribe for clinic note documentation during this visit. Discussion Notes During the visit, I explained the rationale for discontinuing hydrochlorothiazide due to potential kidney complications. We discussed continuing the patient's current medications, including faradilol, lisinopril, and verapamil, with careful monitoring of blood pressure and renal function. I stressed the importance of reducing sweet intake to manage elevated blood sugar and encouraged hydration to support kidney health. Follow-up was advised post- evaluation with nephrology, as well as periodic monitoring. The patient was re minded about staying updated with vaccinations, particularly given the potential risks of infections like flu or RSV. I encouraged the patient to return if symptoms worsen or new symptoms arise. Patient Instructions - Cease hydrochlorothiazide; discuss any side effects with me. - Continue current medications: faradilol, lisinopril, verapamil. - Reduce consumption of sweets and monitor blood sugar levels. - Increase water intake to ensure adequate hydration. - Follow scheduled appointments with nephrology for renal health monitoring. - Remain current on vaccinations and heed current hygiene recommendations. - Return for follow-up in three months or sooner if new symptoms develop. Orders: Orders Hemoglobin A1c Today R73.01 - Impaired fasting glucose Medications: Discontinued hydrochlorothiazide Discontinued Reason: Doctor's Order 12.5 mg PO DAILY 90 days 90 tabs 1RF I10 - Essential (primary) hypertension Coding Level of Care Code Est Pt Level 4 (10561) Complex EM visit Add On G2211 Diagnoses Renovascular hypertension I15.0 CKD stage 3a, GFR 45-59 ml/min N18.31 Mixed hyperlipidemia E78.2 Hyperlipidemia type: mixed hyperlipidemia CHAPARRO (generalized anxiety disorder) F41.1 Impaired fasting blood sugar R73.01
[2024-05-23 15:02] VITALS: BP 136/70; PULSE 67; TEMP 36.2; O2SAT 97; BMI 24.9
== END 2024-05-23 15:37 | disposition home or self-care (01) ==
LOC: HO.HMCH 14:32
PROVIDERS: PCP Physician Assistant; Visit Provider Internal Medicine
DX: I15.0 Renovascular hypertension (principal); N18.31 Chronic kidney disease, stage 3a; E78.2 Mixed hyperlipidemia; F41.1 Generalized anxiety disorder; R73.01 Impaired fasting glucose

== ENCOUNTER → 2024-05-23 14:31 | Outpatient (BNVA) | payer MEDICARE, SELFPAY | PROVIDERS: PCP Physician Assistant; Visit Provider Internal Medicine | DX: I15.0 Renovascular hypertension (principal); N18.31 Chronic kidney disease, stage 3a; E78.2 Mixed hyperlipidemia; F41.1 Generalized anxiety disorder; R73.01 Impaired fasting glucose | CPT/HCPCS: 99212 ==

== ENCOUNTER 2024-06-11 07:17 | Outpatient (REF) | payer MEDICARE, SELFPAY ==
--- OUTSIDE RECORDS SUMMARY | 2024-06-11 07:20 | XMS_ITS | Encounter Summary ---
Author Organization [employer] Address [address] [place] [address] Care Team Providers Care Mixer Operator Tablets Name Role Phone Unavailable Primary Care Provider Unavailabl e Encounter Details Date Type Department Care Team (Late st Contact Info) Description 02/04/2024 Lab Requisition [facility] - Main Lab [address] [facility] [place] [address] Junito Conley MD [address] [facility] [address] [place] [address] Asymptomatic microscopic hematuria Social History Tobacco Use [...] EST [facility] Clinical Information [id number] Urine cytology w/reflex [employer]. 02/15/2024 5:54 PM EST [facility] Gross Description A. Urine, Voided, : [id number] recd 1 TP slide. 02/15/2024 5:54 PM EST [facility] Disclaimer Unless otherwise specified, all tissue is 10% NB formalin fixed and paraffin embedded. Technical pathology services provided by [facility] [address] [facility] [address] [place] [address] (CLIA #[id number]/S edilma Loco MD, Fitness And Wellness Coordinator) 02/15/2024 5:54 PM EST [facility] Tissue Urine specimen from urethra / Unknown 01/30/2024 02/04/2024 9:24 AM EST us Junito Conley MD LAB PATHOLOGY ORDERABLES Fi nal Result [facility] [address] [place] [address], documented in this encounter Visit Diagnoses Diagnosis Asymptomatic microscopic hematuria documented in this encounter
--- OUTSIDE RECORDS SUMMARY | 2024-06-11 07:20 | XMS_ITS ---
Author Organization [facility] Address [address] [place] [address] Care Team Providers Care Manager Linux Name Role Phone Jonathan Varghese Primary Care Provider Unavailab Marky Zhao [phone] REASON FOR VISIT update information Encounters Encounter Location Date Provider Diagnosis [facility] [address] [place] [address] 05/30/2023 Marky Torrez Plan Of Treatment No Information Progress Notes * THONY VASQUEZDOB:[birth year] (72 yo M)Acc No.[id number]:05/30/2023 Patient:?THONY VASQUEZ :1950???Age:72 Y???Sex:Male Address:[address], [facility] [place] [address] * true * Date:? Generated for Briannei soco/Eduardo/eTransmitting on:?06/11/2024 07:20 AM EDT
--- OUTSIDE RECORDS SUMMARY | 2024-06-11 07:20 | XMS_ITS ---
Author Organization [facility] Address [address] [place] [address] Care Team Providers Care Admissions Specialist Name Role Phone Jonathan Varghese Primary Care Provider Unavailab Rob Reynoso [phone] REASON FOR VISIT gout Encounters Encounter Location Date Provider Diagnosis [facility] [address] [place] [address] 05/28/2023 Rob Jiménez Plan Of Treatment No Information Progress Notes * CHRISTINAKalebDOB:[birth year] (72 yo M)Acc No.[id number]:05/28/2023 Patient:?Kaleb Ponce :1950???Age:72 Y???Sex:Male Address:[address] [place] [address], [address] * true * Date:? Generated for Briannei soco/Eduardo/eTransmitting on:?06/11/2024 07:20 AM EDT
--- OUTSIDE RECORDS SUMMARY | 2024-06-11 07:20 | XMS_ITS ---
Author Organization [facility] Address [address] [place] [address] Care Team Providers Care Slot Router Name Role Phone Jonathan Varghese Primary Care Provider Unavailab Marky Zhao Unavailable [phone] Allergies No Known Allergies REASON FOR VISIT Patient presents today for peptic ulcer disease, medication appt Medications Medication SIG (Take, Route, Fr equency, Duration) Notes Start Date End Date Status Vitamin D Active Triamterene Active Gemfibrozil Active Simvastatin Active Omeprazole 20 MG TAKE 1 CAPSULE BY [facility] EVERY DAY for 90 Active Lisinopril Active Carvedilol Active Verapamil HCl Active Problems Problem Type SNOMED Code ICD Code Onset Dates Problem Status W/U Status Risk Notes Problem Exposure to Hepatitis B virus (061227087) Exposure to hepatitis B (Z20.5) Active confirmed Vital Signs Blood pressure systolic 00 mm Hg 06/28/19 24 Blood pressure diastolic 00 mm Hg 024 Height 69 in 06/28/2023 Weight 167 lbs 06/28/2023 BMI 24.66 kg/m2 06/28/2023 Encounters Encounter Location Date Provider Diagnosis [facility] [address] [place] [address] 06/28/2023 Marky Torrez Gastroesophageal ref lux disease without esophagitis K21.9 ; Encounter for screening for malignant neoplasm of colon Z12.11 and Exposure to hepatitis B Z20.5 Assessments Encounter Date Diagnosis (ICD Code) Assessment Notes Treatment Notes Treatment Clinical Notes Section Notes 06/28/2023 Gastroesophageal reflux disease without esophagitis (ICD-10 - K21.9) Continue daily omeprazole Overall, Shan appears quite well. I did advise him to continue his daily omeprazole as that seems to be working very well for his history of reflux, previous dysphagia in relation to the esophageal ring, and previous peptic ulcer disease. I don't think any further evaluation of that is required such as a repeat endoscopy at this time. I advised him to certainly let me know if he ever develops recurrent dysphagia. We did review that he will be due for a followup screening colonoscopy in 2025 given his two previously negative screening colonoscopies, his last exam being in 2015, no particular GI symptoms, and no family history of colon cancer. Lastly I did recommend he have a hepatitis B profile given his 's long-standing history of hepatitis B. He has been given a lab slip for that. Shan was very comfortable with this plan. Thank you again for allowing me to participate in Shan's care. I shall continue to keep you advised of his progress. 06/28/2023 Encounter for screening for malignant neoplasm of colon (ICD-10 - Z12.11) Repeat colonoscopy in 2025 Overall, Shan appears quite well. I did advise him to continue his daily omeprazole as that seems to be working very well for his history of reflux, previous dysphagia in relation to the esophageal ring, and previous peptic ulcer disease. I don't think any further evaluation of that is required such as a repeat endoscopy at this time. I advised him to certainly let me know if he ever develops recurrent dysphagia. We did review that he will be due for a followup screening colonoscopy in 2025 given his two previously negative screening colonoscopies, his last exam being in 2015, no particular GI symptoms, and no family history of colon cancer. Lastly I did recommend he have a hepatitis B profile given his 's long-standing history of hepatitis B. He has been given a lab slip for that. Shan was very comfortable with this plan. Thank you again for allowing me to participate in Shan's care. I shall continue to keep you advised of his progress. 06/28/2023 Exposure to hepatitis B (ICD-10 - Z20.5) Overall, Shan appears quite well. I did advise him to continue his daily omeprazole as that seems to be working very well for his history of reflux, previous dysphagia in relation to the esophageal ring, and previous peptic ulcer disease. I don't think any further evaluation of that is required such as a repeat endoscopy at this time. I advised him to certainly let me know if he ever develops recurrent dysphagia. We did review that he will be due for a followup screening colonoscopy in 2025 given his two previously negative screening colonoscopies, his last exam being in 2016, no particular GI symptoms, and no family history of colon cancer. Lastly I did recommend he have a hepatitis B profile given his 's long-standing history of hepatitis B. He has been given a lab slip for that. Shan was very comfortable with this plan. Thank you again for allowing me to participate in Shan's care. I shall continue to keep you advised of his progress. Plan Of Treatment Treatment Notes Assessment Notes Gastroesophageal reflux disease without esophagitis Continue daily omeprazole Encounter for screening for malignant ne oplasm of colon Repeat colonoscopy in 2025 Pending Test Test Name Order Date HEPATITIS B PROFILE 06/28/2023 Next Appt Details Follow Up: prn, Reason: Progress Notes * CHRISTINA KALEB DDOB:1950 (73 yo M)Acc No.[id number]:06/28/2023 Progress Notes Patient:?KALEB VASQUEZ Provider:?Marky Torrez MD :1950???Age:73 Y???Sex:Male Silas e:06/28/2023 Address: [address], [facility] Pcp:Jonathan Varghese Subjective: * Chief Complaints: * ???Patient presents today fo r peptic ulcer disease, medication appt * HPI: ???incontinence:? I saw Kaleb in consultation today in regard to further evaluation of his chronic gastroesophageal reflux, history of an esophageal ring, discussion of colorectal cancer screening, and exposure to hepatitis B. He was accompanied by his . ?I last saw Kaleb in 2015, at which time he underwent a negative screening colonoscopy. Since that time he has been feeling well. 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 He enjoys a good appetite and denies any significant heartburn or dysphagia. His bowel movements have been regular and without any signs of bleeding. He denies abdominal pain, jaundice, nor weight loss. He denies any known family history of colon cancer. ?His does have a history of chronic hepatitis B for which I have followed her for over 10 years. As far as he knows, he has never been checked for hepatitis B himself and I don't see any record of that in his chart. * ROS:?General/Constitutional:?Change in appetite?denies.?Chills?denies.?Fatigue?denies.?Ophthalmologic:?Comments?all negative.?ENT:?Comments?all negative.?Respiratory:?hemoptysis?denies.?Cough?denies.?Cardiovascular:?Chest pain?denies.?Orthopnea?denies.?Gastrointestinal:?Comments?See HPI for details.?Genitourinary:?Hematuria?denies.?Dysuria?denies.?Musculoskeletal:?Painful joints?denies.?Weakness?denies.?Skin:?Itching?denies.?Rash?denies.?Neurologic:?Headache?denies.?Seizures?denies.?Psychiatric:?Comments?all negative.? * Medical History:? * Surgical History:?Cholecyste ctomy * Hospitalization/Major Diagno stic Procedure:?No Hospitalization History. * Family History:?Father: dece ased, diagnosed with Heart disease.?Mother: , diagnosed with Heart disease.? There is no family history of colorectal cancer, peptic ulcer disease nor esophageal malignancy. * Social History:?Tobacco Use:?Tobacco Use/Smoking?Are you a: nonsmoker.?Drugs/Alcohol:?Alcohol Screen?Points: 1, Interpretation: Negative.?Miscellaneous:?Marital status: . 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 ???Nonsmoker; no sig alchol. * Medications:?TakingVitamin D Gemfibrozil Triamterene Carvedilol Lisinopril Verapamil HCl Simvastatin Omeprazole 20 MG Capsule Delayed Release TAKE 1 CAPSULE BY MOUTH EVERY DAY Medication List reviewed and reconciled with the patientTaking Vitamin D Taking Gemfibrozil Taking Triamterene Taking Carvedilol Taking Lisinopril Taking Verapamil HCl Taking Simvastatin Taking Omeprazole 20 MG Capsule Delayed Release TAKE 1 CAPSULE BY MOUTH EVERY DAY Medication List reviewed and reconciled with the patient * Allergies:?N.K.D.A.yes[Aller gies Verified] Objective: * Vitals:?Wt: 167 lbs, Ht: 69 in, BMI:24.66 Index, BP: 00/00 mm Hg. * Examination: ???General Examination: ?GENERAL APPEARANCE:?pleasant, well nourished, well developed, in no acute distress.?EYES:?sclera non-icteric.?ORAL CAVITY:?mucosa moist.?NECK/THYROID:?no cervical lymphadenopathy, neck supple.?SKIN:?nonjaundiced, no spider angiomata.?HEART:?S1, S2 normal.?LUNGS:?clear to auscultation bilaterally.?ABDOMEN:?normal bowel sounds, no guarding or rigidity, no guarding or rigidity, no masses palpable, soft, nontender, nondistended.?EXTREMITIES:?no edema.?NEUROLOGIC:?alert and oriented.? Assessment: * Assessment: 1.?Gastroesophageal reflux d isease without esophagitis - K21.9 (Primary)?2.?Encounter for screening for malignant neoplasm of colon - Z12.11?3.?Exposure to hepatitis B - Z20.5? Overall, Shan appears quite well. I did advise him to continue his daily omeprazole as that seems to be working very well for his history of reflux, previous dysphagia in relation to the esophageal ring, and previous peptic ulcer disease. I don't think any further evaluation of that is required such as a repeat endoscopy at this time. I advised him to certainly let me know if he ever develops recurrent dysphagia. We did review that he will be due for a followup screening colonoscopy in 2025 given his two previously negative screening colonoscopies, his last exam being in 2016, no particular GI symptoms, and no family history of colon cancer. Lastly I did recommend he have a hepatitis B profile given his 's long- standing history of hepatitis B. He has been given a lab slip for that. Shan was very comfortable with this plan. Thank you again for allowing me to participate in Shan's care. I shall continue to keep you advised of his progress. Plan: * Treatment: 2.?Encounter for screening f or malignant neoplasm of colon? Notes: Repeat colonoscopy in 2025?? 3.?Exposure to hepatitis B?LAB: HEPATITIS B PROFILE * Procedure Codes:?3017F COLOR ECTAL CA SCREEN DOC [id number] TOBACCO [id number] BP SCR NOT PRFRM REC REASON NOS * Preventive Medicine:? ??Counseling:?Care goal follow-up plan:?Above Normal BMI Follow-up?Giving encouragement to exercise,?BMI management provided?Yes.? * Follow Up:?prn * * Sign off status: Completed true * Provider:?Marky Torrez MD Date:? 024 Generated for Ginny wan/Eduardo/eTransmitting on:?06/11/2024 07:19 AM EDT History and Physical Notes * HPI (History of Present Illness) Category Sub-Category Detail Notes Category Not es incontinence I saw Kaleb in consultation today in regard to further evaluation of his chronic gastroesophageal reflux, history of an esophageal ring, discussion of colorectal cancer screening, and exposure to hepatitis B. He was accompanied by his . I last saw Kaleb in 2015, at which time he underwent a negative screening colonoscopy. Since that time he has been feeling well. 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 He enjoys a good appetite and denies any significant heartburn or dysphagia. His bowel movements have been regular and without any signs of bleeding. He denies abdominal pain, jaundice, nor weight loss. He denies any known family history of colon cancer. His does have a history of chronic hepatitis B for which I have followed her for over 10 years. As far as he knows, he has never been checked for hepatitis B himself and I don't see any record of that in his chart. Examination Category Sub-Category Detail Notes Category Not es General Examination GENERAL APPEARANCE: pleasant , well [...]
--- OUTSIDE RECORDS SUMMARY | 2024-06-11 07:20 | XMS_ITS | Patient Health Record ---
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
--- OUTSIDE RECORDS SUMMARY | 2024-06-11 07:20 | XMS_ITS ---
Author Organization [facility] Address [address] [place] [address] Care Team Providers Care Geophysics Scientist Name Role Phone Jonathan Varghese Primary Care Provider UnavailRob Linder Unavailable [phone] Allergies No Known Allergies REASON FOR VISIT [...] Problem Status W/U Status Risk Notes Problem 468598768 Gouty arthritis (M10.9) Active confirmed Problem Acquired hammer toe of right foot (6233140473742 105) Acquired hammer toe of right foot (M20.41) Active confirmed Vital Signs Height 5 ft 9 in in 05/24/2023 Weight 168 lbs 05/24/2023 BMI 24.81 kg/m2 05/24/2023 Blood pressure systolic 130 mm Hg 05/24/19 24 Blood pressure diastolic 80 mm Hg 024 Encounters Encounter Location Date Provider Diagnosis [facility] [place] [address] [place] [address] 05/24/2023 Rob Jiménez Pain in right foot [...] * Kaleb VASQUEZDOB:[birth year] (72 yo M)Acc No.[id number]:05/24/2023 Progress Note Patient:Kaleb Pierce Provider:?Rob Jiménez DPM :1950???Age:72 Y???Sex:Male Silas e:05/24/2023 Address:[address] [place], [place] [id number] Pcp:Jonathan Varghese Subjective: * Chief Complaints: * [...] ?Exercise: yes, walking. ?Marital status: . ?Occupation: [employer]. * Medications:?TakingAtorvasta tin Calcium 40 MG Tablet [...] 05 days, 20, Refills 0.?? * Procedure Codes:?46253 X-RAY EXAM OF RIGHT FOOT 3V, Modifiers: 26 , [id number] 1 pc drainable ost pouch * Preventive [...] DPM Date:? 024 Generated for Ginny wan/Eduardo/Sangeetha on:?06/11/2024 07:20 AM EDT History and Physical Notes * [...]
--- OUTSIDE RECORDS SUMMARY | 2024-06-11 07:20 | XMS_ITS | Clinical Summary ---
Author Organization [facility] Address [address] [place] [address] Phone Care Team Providers Care Sde Name Role Phone Unavailable Primary Care Provider Unavailabl e Social History Tobacco Use Types Packs/Day Years [...] Vaccines (1 of 2) 1998 RSV Immunization Adult Patie nts (1 - 1-dose 75+ series) 06/11/2023 COVID-19 Vaccine (2023-2 5 season) 2023 Abdominal Aortic Aneurysm (A AA) Screen 02/04/2024 Cholesterol Screening (Lipid Panel) 02/04/2024 Colorectal Cancer Screening: Colonoscopy 02/04/2024 Depression Screening 02/04/2024 Falls Risk Assessment 02/04/2024 Hepatitis C Screening 02/04/2024 Medicare Annual Wellness Visit 02/04/2024 Social Influencers of Health Screening 02/04/2024 Influenza Vaccine (Season Ended) 2024 HIB Vaccines Aged Out No longer eligi [...] age to complete this topic Meningococcal B Vaccine Aged Out No l onger eligible based on patient's age to complete this topic RSV Immunization Patients Un familia 20 months Aged Out No longer eligible b ased on patient's age to complete this topic Varicella Vaccines Aged Out No longer eligible based on patient's age to complete this topic Insurance AETNA MEDICARE ADVANTAGE
--- OUTSIDE RECORDS SUMMARY | 2024-06-11 07:20 | XMS_ITS ---
Author Organization [facility] Address [address] [place] [address] Care Team Providers Care Frame Nailer Name Role Phone Jonathan Varghese Primary Care Provider Unavailab Marky Zhao [phone] REASON FOR VISIT hne on 02-25-2021 Encounters Encounter Location Date Provider Diagnosis [facility] [address] [place] [address] 05/30/2023 Marky Torrez Plan Of Treatment No Information Progress Notes * THONY VASQUEZDOB:[birth year] (72 yo M)Acc No.[id number]:05/30/2023 Patient:?THONY VASQUEZ :1950???Age:72 Y???Sex:Male Address:[address], [place] [facility] [place] [address] * true * Date:? Generated for Briannei soco/Eduardo/eTransmitting on:?06/11/2024 07:19 AM EDT
--- OUTSIDE RECORDS SUMMARY | 2024-06-11 07:20 | XMS_ITS | Patient Health Record ---
Author Organization [facility] Address [address] [place] [address] Care Team Providers Care Emergency Medical Services Coordinator Name Role Phone Jonathan Varghese Primary Care Provider UnavailMarky Junior Unavailable [phone] Allergies No Known Allergies Results Component Value Reference Range Notes Hepatitis B Profile Reviewed date:07/11/2023 10:51:25 PM Interpretation: Performing Lab:[facility], [address] [place] [address] Notes/Report: Hepatitis B Surface Antibody REACTIVE Nonreactive REACTIVE: > 11.99 mIU/mL Hepatitis B Core Antibody Nonreactive Nonreactive Hepatitis B Surface Antigen Negative Negative Reason For Referral No Information Medications Medication SIG (Take, Route, Fr equency, Duration) Notes Start Date End Date Status Vitamin D Active Omeprazole 20 MG TAKE 1 CAPSULE BY [facility] EVERY DAY for 90 Active Triamterene Active Gemfibrozil Active Lisinopril Active Carvedilol Active Simvastatin Active Verapamil HCl Active Problems Problem Type SNOMED Code ICD Code Onset Dates Problem Status W/U Status Risk Notes Problem 107922097 Encounter for screening for malignant neoplasm of colon (Z12.11) Active confirmed Problem Screening for malignant neoplasm of rectum (439222035) Encounter for screening for malignant neoplasm of rectum (Z12.12) Active confirmed Problem 687819076 Gastroesophageal reflux disease without esophagitis (K21.9) Active confirmed Problem 13227974 Peptic ulcer dis ease (K27.9) Active confirmed Problem Exposure to Hepatitis B virus (956362301) Exposure to hepatitis B (Z20.5) Active confirmed Vital Signs Blood pressure diastolic 00 mm Hg 06/28/2023 Height 69 in 06/28/2023 Blood pressure systolic 00 mm Hg 06/28/2023 Weight 167 lbs 06/28/2023 BMI 24.66 kg/m2 06/28/2023 Encounters Encounter Location Date Provider Diagnosis [facility] [address] [place] [address] 06/28/2023 Marky Torrez Gastroesophageal ref lux disease without esophagitis K21.9 ; Encounter for screening for malignant neoplasm of colon Z12.11 and Exposure to hepatitis B Z20.5 Assessments Encounter Date Diagnosis (ICD Code) Assessment Notes Treatment Notes Treatment Clinical Notes Section Notes 06/28/2023 Encounter for screening for malignant [...] keep you advised of his progress. 06/28/2023 Gastroesophageal reflux disease without esophagitis (ICD-10 [...] again for allowing me to participate in Sahn's care. I shall continue to keep you [...] advised of his progress. Plan Of Treatment Pending Test Test Name Order Date HEPATITIS B PROFILE 06/28/2023 Future Test Test Name Order Date COLONOSCOPY 04/16/2015 Insurance Providers Payer Name Payer Address Payer Phone Subscriber Number Group Number Insured Name Patient Relationship to Insured Coverage Start Date Coverage End Date [facility] [address] [place], [place] [id number] CHRISTINATHONY ALMANZA Self - patient is the insured Medical (General) History Medical History History ICD Code Hypertension Hyperlipidemia Denies [place],DM,CVA,Lung disease,renal dise ase Colonoscopy in [address] Johnson--negat nicko for polyps Neg. screening colonoscopy in 05/2015 EGD in 10/2009--this revealed a mild distal esophageal ring which was dilated, gastric and duodenal ulcers,, and gastric biopsies that were negative for H. pylori Surgical History Surgery Date(Month/Year) Cholecystectomy
--- OUTSIDE RECORDS SUMMARY | 2024-06-11 07:21 | XMS_ITS ---
Author Organization [facility] Address [address] [place] [address] Care Team Providers Care Field Pipe Lines Supervisor Name Role Phone Jonathan Varghese Primary Care Provider UnavailRob Linder [facility] [phone] Encounters Encounter Location Date Provider Diagnosis [facility] [address] [place] [address] 03/07/2023 Rob Jiménez Plan Of Treatment No Information Progress Notes * Kaleb VASQUEZDOB:[birth year] (74 yo M)Acc No.[id number]:03/07/2023 Progress Note Patient:Kaleb HAAS Provider:?Rob Jiménez DPM :1950???Age:72 Y???Sex:Male Silas e:03/07/2023 Address:[address] [place], [place] [phone] Pcp:Jonathan Varghese Subjective: * Chief Complaints: * [...] DPM Date:? 024 Generated for Printi ng/Faxing/eTransmitting on:?06/11/2024 07:20 AM EDT
[2024-06-11 08:15] LABS: Alanine Aminotransferase 18 U/L (0-40); Alkaline Phosphatase 106 U/L (39-117); Anion Gap 10 (12-20); Aspartate Amino Transferase 29 U/L (5-37); Bilirubin Total 0.8 mg/dL (0.0-1.0); Blood Urea Nitrogen 14 mg/dL (9-16); Calcium 9.8 mg/dL (8.4-10.2); Carbon Dioxide 23 mmol/L (22-29); Chloride 113 mmol/L (96-108); Cholesterol 103 mg/dL (<200); Estimated Glomerular Filt Rate > 60; Glucose Fasting 104 mg/dL (60-99); HDL Cholesterol 32 mg/dL (>40); LDL Cholesterol Calculated 49 mg/dL (<100); Potassium 4.1 mmol/L (3.3-5.1); Sodium 142 mmol/L (135-145); Total Protein 6.6 g/dL (6.5-8.0); Triglycerides 113 mg/dL (<150); Uric Acid 4.7 mg/dL (3.4-7.0)
[2024-06-11 10:06] LABS: Creatinine Urine 125.13 mg/dL; Microalbum/Creatinine Ratio Ur 16.7 ug/mg cr (<30)
== END 2024-06-11 07:18 | disposition home or self-care (01) ==
LOC: HO.LAB 07:17
PROVIDERS: PCP Physician Assistant; Visit Provider Physician Assistant
DX: M1A.0710 Idiopathic chronic gout, right ankle and foot, without tophus (tophi) (principal); E78.2 Mixed hyperlipidemia; I10 Essential (primary) hypertension
CPT/HCPCS: 36415; 80053; 80061; 82043; 82570; 84550

== ENCOUNTER 2024-07-12 09:08 | Outpatient (REF) | payer MEDICARE, SELFPAY ==
--- OUTSIDE RECORDS SUMMARY | 2024-07-12 09:11 | XMS_ITS ---
Author Organization [facility] Address [address] [place] [address] Care Team Providers Care Cloud Operations Engineer Name Role Phone Jonathan Varghese Primary Care Provider Unavailab Marky Zhao Unavailable [phone] Allergies No Known Allergies REASON FOR VISIT Patient presents today for peptic ulcer disease, medication appt Medications Medication SIG (Take, Route, Fr equency, Duration) Notes Start Date End Date Status Vitamin D Active Triamterene Active Gemfibrozil Active Simvastatin Active Omeprazole 20 MG TAKE 1 CAPSULE BY [facility] EVERY DAY for 90 Active Lisinopril Active Carvedilol Active Verapamil HCl Active Problems Problem Type SNOMED Code ICD Code Onset Dates Problem Status W/U Status Risk Notes Problem Exposure to Hepatitis B virus (430608276) Exposure to hepatitis B (Z20.5) Active confirmed Vital Signs Blood pressure systolic 00 mm Hg 06/28/19 24 Blood pressure diastolic 00 mm Hg 024 Height 69 in 06/28/2023 Weight 167 lbs 06/28/2023 BMI 24.66 kg/m2 06/28/2023 Encounters Encounter Location Date Provider Diagnosis [facility] [address] [place] [address] 06/28/2023 Marky Torrez Gastroesophageal ref lux disease [...] * CHRISTINA KALEB DDOB:1950 (73 yo M)Acc No.[id number]:06/28/2023 Progress Notes Patient:?KALEB VASQUEZ Provider:?Marky Torrez MD :1950???Age:73 Y???Sex:Male Silas e:06/28/2023 Address: [address], [facility] Pcp:Jonathan Varghese Subjective: * Chief Complaints: * [...] 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 ???Nonsmoker; no sig alchol. * Medications:?TakingVitamin D [...] Procedure Codes:?3017F COLOR ECTAL CA SCREEN DOC [id number] TOBACCO NON-OQBBT3168 BP SCR NOT PRFRM REC REASON NOS * Preventive Medicine:? ??Counseling:?Care goal follow-up plan:?Above Normal BMI Follow-up?Giving encouragement to exercise,?BMI management provided?Yes.? * Follow Up:?prn * * Sign off status: Completed true * Provider:?Marky Torrez MD Date:? 024 Generated for Ginny wan/Eduardo/eTransmitting on:?07/12/2024 09:11 AM EDT History and Physical Notes * [...]
--- OUTSIDE RECORDS SUMMARY | 2024-07-12 09:11 | XMS_ITS | Clinical Summary ---
Author Organization [facility] Address [address] [place] [address] Phone Care Team Providers Care Surgical Elastic Knitter Name Role Phone Unavailable Primary Care Provider [...] Vaccine ( - 2023-2 5 season) 2023 Cholesterol Screening (Lipid Panel) 02/04/2024 Depression Screening 02/04/2024 Falls Risk Assessment [...]
--- OUTSIDE RECORDS SUMMARY | 2024-07-12 09:11 | XMS_ITS ---
Author Organization [facility] Address [address] [place] [address] Care Team Providers Care Steamboat Pilot Name Role Phone Jonathan Varghese Primary Care Provider Unavailab Marky Zhao [phone] REASON FOR VISIT update information Encounters Encounter Location Date Provider Diagnosis [facility] [address] [place] [address] 05/30/2023 Marky Torrez Plan Of Treatment No Information Progress Notes * THONY VASQUEZDOB:[birth year] (72 yo M)Acc No.[id number]:05/30/2023 Patient:?THONY VASQUEZ :1950???Age:72 Y???Sex:Male Address:[address], [place] [facility] [place] [address] * true * Date:? Generated for Briannei soco/Eduardo/eTransmitting on:?07/12/2024 09:11 AM EDT
--- OUTSIDE RECORDS SUMMARY | 2024-07-12 09:11 | XMS_ITS | Encounter Summary ---
Author Organization [facility] Address [address] [place] [address] Care Team Providers Care Rn Vascular Name Role Phone Unavailable Primary Care Provider Unavailabl e Encounter Details Date Type Department Care Team (Late st Contact Info) Description 02/04/2024 Lab Requisition [facility] - Main Lab [address] [facility] [place] [address] Junito Conley MD [address] [facility] [address] [place] [address] Asymptomatic microscopic hematuria Social History Tobacco Use [...] high-grade urothelial carcinoma. 02/15/2024 5:54 PM EST [facility] Clinical Information [id number] Urine cytology w/reflex UroVysion. 02/15/2024 5:54 PM EST [facility] Gross Description A. Urine, Voided, : [id number] recd 1 TP slide. 02/15/2024 5:54 PM EST [facility] Disclaimer Unless otherwise specified, all tissue is 10% NB formalin fixed and paraffin embedded. Technical pathology services provided by [facility] [address] [place] [address] (CLIA #[id number]/S edilma Loco MD, Toll Ticket Clerk) 02/15/2024 5:54 PM EST [facility] Tissue Urine specimen from urethra / Unknown 01/30/2024 02/04/2024 9:24 AM EST us Junito Conley MD LAB PATHOLOGY ORDERABLES Fi nal Result [facility] [address] [place] [address], documented in this encounter Visit Diagnoses Diagnosis Asymptomatic microscopic hematuria documented in this encounter
--- OUTSIDE RECORDS SUMMARY | 2024-07-12 09:11 | XMS_ITS | Patient Health Record ---
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
--- OUTSIDE RECORDS SUMMARY | 2024-07-12 09:12 | XMS_ITS ---
Author Organization [facility] Address [address] [place] [address] Care Team Providers Care Public Health Specialist Name Role Phone Jonathan Varghese Primary Care Provider UnavailRob Linder [facility] [phone] Encounters Encounter Location Date Provider Diagnosis [facility] [address] [place] [address] 03/07/2023 Rob Jiménez Plan Of Treatment No Information Progress Notes * Kaleb VASQUEZDOB:[birth year] (74 yo M)Acc No.[id number]:03/07/2023 Progress Note Patient:Kaleb HAAS Provider:?Rob Jiménez DPM :1950???Age:72 Y???Sex:Male Silas e:03/07/2023 Address:[address] [place], [place] [id number] Pcp:Jonathan Varghese Subjective: * Chief Complaints: * [...] DPM Date:? 024 Generated for Printi ng/Faxing/eTransmitting on:?07/12/2024 09:12 AM EDT
--- OUTSIDE RECORDS SUMMARY | 2024-07-12 09:12 | XMS_ITS ---
Author Organization [facility] Address [address] [place] [address] Care Team Providers Care Conveyancer Name Role Phone Jonathan Varghese Primary Care Provider Unavailab Rob Reynoso [phone] REASON FOR VISIT gout Encounters Encounter Location Date Provider Diagnosis [facility] [address] [place] [address] 05/28/2023 Rob Jiménez Plan Of Treatment No Information Progress Notes * CHRISTINAKalebDOB:[birth year] (72 yo M)Acc No.[id number]:05/28/2023 Patient:?Kaleb Ponce :1950???Age:72 Y???Sex:Male Address:[address] [place] [address], [address] * true * Date:? Generated for Printi soco/Eduardo/eTransmitting on:?07/12/2024 09:12 AM EDT
--- OUTSIDE RECORDS SUMMARY | 2024-07-12 09:12 | XMS_ITS | Patient Health Record ---
Author Organization [facility] Address [address] [place] [address] Care Team Providers Care Business Intern Name Role Phone Jonathan Varghese Primary Care Provider UnavailMarky Junior Unavailable [phone] Allergies No Known Allergies Reason For Referral No Information Medications Medication SIG (Take, Route, Fr equency, Duration) Notes Start Date End Date Status Vitamin D Active Omeprazole 20 MG TAKE 1 CAPSULE BY [facility] EVERY DAY for 90 Active Triamterene Active Gemfibrozil Active Lisinopril Active Carvedilol Active Simvastatin Active Verapamil HCl Active Problems Problem Type SNOMED Code ICD Code Onset Dates Problem Status W/U Status Risk Notes Problem 237208959 Encounter for screening for malignant neoplasm of colon (Z12.11) Active confirmed Problem Screening for malignant neoplasm of rectum (035969653) Encounter for screening for malignant neoplasm of rectum (Z12.12) Active confirmed Problem 358626572 Gastroesophageal reflux disease without esophagitis (K21.9) Active confirmed Problem 46186965 Peptic ulcer dis ease (K27.9) Active confirmed Problem Exposure to Hepatitis B virus (392146475) Exposure to hepatitis B (Z20.5) Active confirmed Plan Of Treatment Pending Test Test Name Order Date HEPATITIS B PROFILE 06/28/2023 Future Test Test Name Order Date COLONOSCOPY 04/16/2015 Insurance Providers Payer Name Payer Address Payer Phone Subscriber Number Group Number Insured Name Patient Relationship to Insured Coverage Start Date Coverage End Date [facility] [address] [place], [place] [id number] THONY VASQUEZ Self - patient is the insured Medical (General) History Medical History History ICD Code Hypertension Hyperlipidemia Denies [place],DM,CVA,Lung disease,renal dise ase [place] [address] Johnson--negat nicko for polyps Neg. screening colonoscopy in 05/2015 EGD in 10/2009--this revealed a mild distal esophageal ring which was dilated, gastric and duodenal ulcers,, and gastric biopsies that were negative for H. pylori Surgical History Surgery Date(Month/Year) Cholecystectomy
--- OUTSIDE RECORDS SUMMARY | 2024-07-12 09:12 | XMS_ITS ---
Author Organization [facility] Address [address] [address] Care Team Providers Care Lens Hardener Name Role Phone Jonathan Varghese Primary Care Provider UnavailRob Linder Unavailable [phone] Allergies No Known Allergies REASON FOR VISIT [...] Problem Status W/U Status Risk Notes Problem 499224700 Gouty arthritis (M10.9) Active confirmed Problem Acquired hammer toe of right foot (M20.41) Active confirmed Vital Signs Blood pressure systolic 130 mm Hg 05/24/19 24 Blood pressure diastolic 80 mm Hg 024 Height 5 ft 9 in in 05/24/2023 Weight 168 lbs 05/24/2023 BMI 24.81 kg/m2 05/24/2023 Encounters Encounter Location Date Provider Diagnosis [facility] [place] [address] [place] [address] 05/24/2023 Rob Jiménez Pain in right foot [...] * Kaleb VASQUEZDOB:[birth year] (72 yo M)Acc No.[id number]:05/24/2023 Progress Note Patient:Kaleb Pierce Provider:?Rob Jiménez DPM :1950???Age:72 Y???Sex:Male Silas e:05/24/2023 Address:[address] [place], [place] [id number] Pcp:Jonathan Varghese Subjective: * Chief Complaints: * [...] denies.? * Medical History:? * Surgical History:?mariluz otero er * Hospitalization/Major Diagno stic Procedure:?Denies Past [...] ?Exercise: yes, walking. ?Marital status: . 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 * Medications:?TakingAtorvasta tin Calcium 40 MG Tablet [...] dayTaking Vitamin D3 Super Strength 50 MCG (1999 [place]) Tablet 1 tablet Orally Once a [...] 05 days, 20, Refills 0.?? * Procedure Codes:?68758 X-RAY EXAM OF RIGHT FOOT 3V, Modifiers: 26 , INF7517 1 pc drainable ost pouch * Preventive [...] DPM Date:? 024 Generated for Ginny wan/Eduardo/Sangeetha on:?07/12/2024 09:12 AM EDT History and Physical Notes * [...]
[2024-07-12 09:58] LABS: Hematocrit 43.8 % (42.0-52.0); Hemoglobin 15.4 g/dl (14.0-18.0); Mean Corpuscular HGB Conc 35.2 g/dl (31.0-36.0); Mean Corpuscular Hemoglobin 32.6 pg (27.0-33.0); Mean Corpuscular Volume 92.8 fL (80.0-98.0); Mean Platelet Volume 9.2 fL (9.4-12.4); Platelet Count 205 X10*3/uL (160-400); Red Blood Count 4.72 X10*6/uL (4.60-5.80); Red Cell Distribution Width 13.5 % (11.0-16.0); White Blood Count 6.5 X10*3/uL (4.8-10.8)
== END 2024-07-12 09:09 | disposition home or self-care (01) ==
LOC: HO.LAB 09:08
PROVIDERS: PCP Physician Assistant; Visit Provider Physician Assistant
DX: I10 Essential (primary) hypertension (principal)
CPT/HCPCS: 36415; 85027

== ENCOUNTER 2024-07-16 07:40 | Outpatient (AMB) | payer MEDICARE, SELFPAY ==
--- OUTSIDE RECORDS SUMMARY | 2024-07-16 07:43 | XMS_ITS | Encounter Summary ---
Author Organization [facility] Address [address] [place] [address] Care Team Providers Care Mva Reactor Operator Name Role Phone Unavailable Primary Care Provider Unavailabl e Encounter Details Date Type Department Care Team (Late st Contact Info) Description 02/04/2024 Lab Requisition [facility] - Main Lab [address] [facility] [place] [address] Junito Conley MD 100 [facility] [address] [place] [address] Asymptomatic microscopic hematuria Social History Tobacco Use [...] high-grade urothelial carcinoma. 02/15/2024 5:54 PM EST [facility] Clinical Information [id number] Urine cytology w/reflex UroVysion. 02/15/2024 5:54 PM EST [facility] Gross Description A. Urine, Voided, : [id number] recd 1 TP slide. 02/15/2024 5:54 PM EST [facility] Disclaimer Unless otherwise specified, all tissue is 10% NB formalin fixed and paraffin embedded. Technical pathology services provided by [facility] [address] [facility] [address], [place] [address] (CLIA #[id number]/S edilma Loco MD, Supercharger Repair Supervisor) 02/15/2024 5:54 PM EST [facility] Tissue Urine specimen from urethra / Unknown 01/30/2024 02/04/2024 9:24 AM EST us Junito Conley MD LAB PATHOLOGY ORDERABLES Fi nal Result [facility] [address] [place] [address], documented in this encounter Visit Diagnoses Diagnosis Asymptomatic microscopic hematuria documented in this encounter
--- OUTSIDE RECORDS SUMMARY | 2024-07-16 07:43 | XMS_ITS ---
Author Organization [facility] Address [address] [place] [address] Care Team Providers Care Headwaitress Name Role Phone Jonathan Varghese Primary Care Provider Unavailab Marky Zhao Unavailable [phone] Allergies No Known Allergies REASON FOR VISIT Patient presents today for peptic ulcer disease, medication appt Medications Medication SIG (Take, Route, Fr equency, Duration) Notes Start Date End Date Status Vitamin D Active Triamterene Active Gemfibrozil Active Simvastatin Active Omeprazole 20 MG TAKE 1 CAPSULE BY [facility] EVERY DAY for 90 Active Lisinopril Active Carvedilol Active Verapamil HCl Active Problems Problem Type SNOMED Code ICD Code Onset Dates Problem Status W/U Status Risk Notes Problem Exposure to Hepatitis B virus (609366035) Exposure to hepatitis B (Z20.5) Active confirmed Vital Signs Blood pressure systolic 00 mm Hg 06/28/19 24 Blood pressure diastolic 00 mm Hg 024 Height 69 in 06/28/2023 Weight 167 lbs 06/28/2023 BMI 24.66 kg/m2 06/28/2023 Encounters Encounter Location Date Provider Diagnosis [facility] [address] [place] [address] 06/28/2023 Marky Torrez Gastroesophageal ref lux disease [...] * CHRISTINA KALEB DDOB:1950 (73 yo M)Acc No.[id number]:06/28/2023 Progress Notes Patient:?KALEB VASQUEZ Provider:?Marky Torrez MD :1950???Age:73 Y???Sex:Male Silas e:06/28/2023 Address: [address], [facility] [place] Pcp:Jonathan Varghese Subjective: * Chief Complaints: * [...] 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 ???Nonsmoker; no sig alchol. * Medications:?TakingVitamin D [...] Procedure Codes:?3017F COLOR ECTAL CA SCREEN DOC [id number] TOBACCO NON-[id number] BP SCR NOT PRFRM REC REASON NOS * Preventive Medicine:? ??Counseling:?Care goal follow-up plan:?Above Normal BMI Follow-up?Giving encouragement to exercise,?BMI management provided?Yes.? * Follow Up:?prn * * Sign off status: Completed true * Provider:?Marky Torrez MD Date:? 024 Generated for Briannei soco/Eduardo/eTransmitting on:?07/16/2024 07:43 AM EDT History and Physical Notes * [...]
--- OUTSIDE RECORDS SUMMARY | 2024-07-16 07:44 | XMS_ITS | Patient Health Record ---
Author Organization [facility] Address [address] [place] [address] Care Team Providers Care Multimedia Artist Name Role Phone Jonathan Varghese Primary Care Provider Rob Degroot Unavailable [phone] Allergies No Known Allergies Reason For Referral [...] Status Risk Notes Problem Acquired hallux valgus (13432730) Hallux valgus (acquired), left foot (M20.12) Active confirmed Problem Primary gout (82092191) Idiopathic gout, left ankle and foot (M10.072) Active confirmed Problem Acquired hammer toe of right foot ([id number] 105) Acquired hammer toe of right foot (M20.41) Active confirmed Problem 938525193 Gouty arthritis (M10.9) Active confirmed Plan Of [...] Date Coverage End Date [employer] [address] [place] [phone] [id number] Kaleb Ponce Self - patient is the insured Medical (General) History Medical History History ICD Code Gall bladder problems High blood pressure Surgical History Surgery Date(Month/Year) gall bladder
--- OUTSIDE RECORDS SUMMARY | 2024-07-16 07:45 | XMS_ITS ---
Author Organization [facility] Address [address] [place] [address] Care Team Providers Care Foreign Student Adviser Teacher Name Role Phone Jonathan Varghese Primary Care Provider Unavailab Marky Zhao [phone] REASON FOR VISIT update information Encounters Encounter Location Date Provider Diagnosis [facility] [address] [place] [address] 05/30/2023 Marky Torrez Plan Of Treatment No Information Progress Notes * THONY VASQUEZDOB:[birth year] (72 yo M)Acc No.[id number]:05/30/2023 Patient:?THONY VASQUEZ :1950???Age:72 Y???Sex:Male Address:[address], [place] [facility] [place] [address] * true * Date:? Generated for Briannei soco/Eduardo/eTransmitting on:?07/16/2024 07:44 AM EDT
--- OUTSIDE RECORDS SUMMARY | 2024-07-16 07:46 | XMS_ITS | Patient Health Record ---
Author Organization [facility] Address [address] [place] [address] Care Team Providers Care Sponge Hooker Name Role Phone Jonathan Varghese Primary Care Provider UnavailMarky Junior Unavailable [phone] Allergies No Known Allergies Reason For Referral No Information Medications Medication SIG (Take, Route, Fr equency, Duration) Notes Start Date End Date Status Vitamin D Active Omeprazole 20 MG TAKE 1 CAPSULE BY [facility] EVERY DAY for 90 Active Triamterene Active Gemfibrozil Active Lisinopril Active Carvedilol Active Simvastatin Active Verapamil HCl Active Problems Problem Type SNOMED Code ICD Code Onset Dates Problem Status W/U Status Risk Notes Problem 846758623 Encounter for screening for malignant neoplasm of colon (Z12.11) Active confirmed Problem Screening for malignant neoplasm of rectum (426553709) Encounter for screening for malignant neoplasm of rectum (Z12.12) Active confirmed Problem 525394246 Gastroesophageal reflux disease without esophagitis (K21.9) Active confirmed Problem 65864429 Peptic ulcer dis ease (K27.9) Active confirmed Problem Exposure to Hepatitis B virus (298365778) Exposure to hepatitis B (Z20.5) Active confirmed Plan Of Treatment Pending Test Test Name Order Date HEPATITIS B PROFILE 06/28/2023 Future Test Test Name Order Date COLONOSCOPY 04/16/2015 Insurance Providers Payer Name Payer Address Payer Phone Subscriber Number Group Number Insured Name Patient Relationship to Insured Coverage Start Date Coverage End Date [facility] [address] [place], [place] [id number] THONY VASQUEZ Self - patient is the insured Medical (General) History Medical History History ICD Code Hypertension Hyperlipidemia Denies CA,DM,CVA,Lung disease,renal dise ase Colonoscopy in [address] Johnson--negat nicko for polyps Neg. screening colonoscopy in 05/2015 EGD in 10/2009--this revealed a mild distal esophageal ring which was dilated, gastric and duodenal ulcers,, and gastric biopsies that were negative for H. pylori Surgical History Surgery Date(Month/Year) Cholecystectomy
--- OUTSIDE RECORDS SUMMARY | 2024-07-16 07:46 | XMS_ITS | Clinical Summary ---
Author Organization [facility] Address [address] [place] [address] Phone Care Team Providers Care Dressmaking Teacher Name Role Phone Unavailable Primary Care Provider [...]
--- OUTSIDE RECORDS SUMMARY | 2024-07-16 07:47 | XMS_ITS ---
Author Organization [facility] Address [address] [place] [address] Care Team Providers Care Buttonhole Marker Name Role Phone Jonathan Varghese Primary Care Provider Unavailab Rob Reynoso [phone] REASON FOR VISIT gout Encounters Encounter Location Date Provider Diagnosis [facility] [address] [place] [address] 05/28/2023 Rob Jiménez Plan Of Treatment No Information Progress Notes * CHRISTINAKalebDOB:[birth year] (72 yo M)Acc No.[id number]:05/28/2023 Patient:?Kaleb Ponce :1950???Age:72 Y???Sex:Male Address:[address] [place] [address], [address] * true * Date:? Generated for Briannei soco/Eduardo/eTransmitting on:?07/16/2024 07:47 AM EDT
[2024-07-16 07:50] VITALS: BP 136/66; PULSE 75; RESP 18; TEMP 36.3; O2SAT 96; BMI 23.9
--- NOTE | 2024-07-16 07:50 | A.OFFPC_ITS ---
Vital Signs 07/16/24 07:50 Height 5 ft 9 in Weight 161 lb 9.6 oz BMI 23.9 BP 136/66 Blood Pressure Location Lt brachial Position Sitting Respiration 18 Pulse 75 Pulse Source Pulse Oximeter Temp 97.3 F Temp Source Temporal Artery Scan Pulse Oximetry (%) 96 Oxygen Delivery Method Room Air Intake Visit Reasons: f/u HTN/ HLD Loss Prevention Manager Required: No Accompanied by: Self / Same As Patient Allergies colchicine Adverse Reaction (Mild, Verified 07/16/24 08:02) Diarrhea Medication List - Last Reconciled 07/16/24 by Jonathan Varghese PA-C allopurinol 300 mg PO DAILY 90 days atorvastatin 40 mg PO DAILY 90 days carvedilol 12.5 mg PO BID cholecalciferol (vitamin D3) 250 mcg PO DAILY lisinopril 40 mg PO DAILY 90 days omeprazole 20 mg PO DAILY verapamil ER 240 mg PO DAILY Tobacco use date assessed: 07/16/24 Fall risk assessment: No Falls in past year Last assessed Fall Risk: 07/16/24 Dental Screening Dental Screen Date: 07/16/24 Did you have a dental visit in the last 12 months?: Yes Did you have a dental problem in the last 6 months where you did not have access to dental care?: No Was dental information given to patient?: Patient has dentist HPI f/u HTN/ HLD HPI Details Patient is a 74-year-old male here today for follow-up visit.? Patient has a past medical history significant for hypertension, hyperlipidemia, gout, family history of coronary artery disease, BPH. CHRONIC MEDICAL CONDITION--> . Hypertension:? Blood pressure acceptable today in office. He reports that home blood pressures are quite stable 120-130 systolic. Denies any headaches, vision issues, chest discomforts. .. Renal artery stenosis: Has a ischemic nephropathy. Has followed up with his machinist is considering stenting the renal artery. .. BPH:? Patient is followed by Urology and gets his PSA checked any yearly basis.. He does report having history benign microscopic hematuria .. :Gout: he reports his gout about has resolved with the addition of allopurinol.. He does report it has been getting better. He is not hindered in any way. Patient continues on allopurinol on a daily basis. .. Hyperlipidemia:? Patient's most recent lipid panels showing acceptable total cholesterol and LDL.? Continues to have low HDL.? He reports he continues to ride his bike as his main form of physical activity.? Continues on statin therapy without side effect. Laboratory Tests 01/11/24 06/11/24 07/12/24 09:38 07:37 09:15 RBC 4.20 L 4.72 Hgb 13.6 L 15.4 Creatinine 1.03 Fasting Glucose 116 H 104 H LDL Cholesterol, C alc 53 49 [facility] Medical History Peptic ulcer disease Screening for AAA (abdominal aortic aneurysm) Left ear impacted cerumen Gout Surgical History History of cholecystectomy Family History Father No problems noted. Mother No problems noted. 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 1. Little interest or pleasure in doing things: not at all 2. Feeling down, depressed, or hopeless: not at all 3. Trouble falling or staying asleep, or sleeping too much: not at all 4. Feeling tired or having little energy: not at all 5. Poor appetite or overeating: not at all 6. Feeling bad about yourself - or that you are a failure or have let yourself or your family down: not at all 7. Trouble concentrating on things, such as reading the newspaper or watching television: not at all 8. Moving or speaking so slowly that other people could have noticed. Or the opposite - being so fidgety or restless that you have been moving around a lot more than usual: not at all 9. Thoughts that you would be better off or of hurting yourself in some way: not at all Total score: 0 Depression Screening Interpretation: Negative Depression Screening Done: Yes 36359 - PHQ-9 Billing: Yes Source: Developed by Drs. Marky Giles, Helene Beebe, Kong Simpson and colleagues, with an educational sweetie from [employer]. Thrive Questionnaire Date Thrive assessed: 07/16/24 I am a: Patient What is your living situation today?: I have a steady place to live Within the past 12 months, did the food you bought not last and you didn't have the money to get more?: Never true Within the past 12 months, did you worry whether your food would run out before you got money to buy more?: Never true Do you have trouble paying for medicines?: No Do you have trouble getting transportation to medical appointments?: No Do you have trouble paying your heating and electricity bill?: No Do you have trouble taking care of your child, family member or friend?: No Do you have trouble with day-to-day activities such as bathing, preparing meals, shopping, managing finances, etc.?: No Are you currently unemployed and looking for a job?: No Are you interested in more education?: No Please select the resources that you would like help with: None Currently or been in a relationship where the following occur: No concerns reported THRIVE Score: 0 AUDIT C Alcohol Use Questionnaire (AUDIT-C) 1. How often do you have a drink containing alcohol?: 2-4 times a month 2. How many drinks containing alcohol do you have on a typical day when you are drinking?: 1 or 2 3. How often do you have six or more drinks on one occasion?: Never Total Score: 2 Score Reviewed/Action Taken: No CHAPARRO-7 AMB Questionnaire CHAPARRO-7 Date CHAPARRO - 7 assessed: 07/16/24 Feeling nervous, anxious, or on edge: 0 = Not at all Not being able to stop or control worryin = Not at all Worrying too much about different things: 1 = Several days Trouble relaxin = Not at all Being so restless that it is hard to sit still: 0 = Not at all Becoming easily annoyed or irritable: 1 = Several days Feeling afraid as if something awful might happen: 0 = Not at all Total CHAPARRO-7 score (0-4 normal; 5-9 mild; 10-14 moderate; 15-21 severe): 2 Source: Developed by Drs. Marky Giles, Helene Beebe, Kong Simpson and colleagues, with an educational sweetie from [employer]. CHAPARRO-7 Assessment Billing CHAPARRO-7 Assessment Tool: CHAPARRO-7 Assessment 91340 Review of Systems Const Denies headache(s) Eyes Denies loss of vision ENT Denies vertigo, Denies dizziness, Denies headache(s) and Denies sore throat Card Denies chest pain, Denies leg edema and Denies lightheadedness Resp Denies cough, Denies hemoptysis and Denies wheezing GI Denies abdominal pain, Denies melena, Denies constipation, Denies diarrhea and Denies vomiting Denies dysuria, Denies urinary frequency and Denies urinary urgency Musc Denies arthralgias, Denies joint swelling, Denies numbness and Denies tingling Neuro Denies Abnormal speech present, Denies behavioral changes, Denies vertigo, Denies dizziness, Denies headache(s), Denies loss of vision, Denies memory loss, Denies numbness and Denies tingling Psych Denies anxiety, Denies behavioral changes, Denies depression, Denies memory loss and Denies panic attacks Frankie/Lymph Denies easy bleeding and Denies easy bruising Aller/Immun Denies wheezing Physical exam (Primary Care) Vital Signs: Last Vital Signs Temp 97.3 F 07/16/24 07:50 Pulse 75 07/16/24 07:50 Resp 18 07/16/24 07:50 BP 136/66 07/16/24 07:50 Pulse Ox 96 07/16/24 07:50 Oxygen Delivery Method Room Air 07/16/24 07:50 BMI result Body Mass Index 23.9 Tobacco/Smoking Status: Tobacco use Status Tobacco use date assessed 07/16/24 07/16/24 08:00 Patient Tobacco Use Status Never used Tobacco 07/16/24 08:00 Tobacco use type Cigarette 07/16/24 08:00 e-Cigarette/Vaping Use Never Used 07/16/24 08:00 PHQ-9: PHQ-9 Score PHQ-9: Total score 0 07/16/24 08:03 Depression Screening Interpretation: Negative Thrive Assessment: Date of Thrive Assessment Date Thrive assessed 07/16/24 07/16/24 08:00 Currently or been in a relationship where the following occur: No concerns reported Const General: healthy appearing, no acute distress, alert and awake Nutritional Appearance: well nourished Orientation/consciousness: oriented to person, oriented to place and oriented to time HENMT Ears: TM's normal bilaterally General nose exam: Normal nasal mucous membranes and turbinates present Eyes Conjunctivae: conjunctivae normal Sclerae: sclerae normal Pupils: Equal, round and reactive pupils present Neck Neck: Yes no lymphadenopathy and Yes no JVD Thyroid: Thyroid normal Carotids: no bruits Resp Effort & Inspection: normal respiratory effort and not tachypneic Auscultation: no crackles, no rales, no rhonchi and no wheezes Cardio Rate: regular rate Rhythm: regular rhythm Heart sounds: no murmurs and normal S1 and S2 GI Palpation (GI): Soft to palpation, nontender, no hepatomegaly and no splenomegaly Auscultation: normal bowel sounds Skin General skin exam: no rashes or lesions noted and dry skin Neuro General: oriented to person, oriented to place and oriented to time Cranial nerves: Yes Equal, round and reactive pupils present Speech: No Abnormal speech present Gait exam (Neuro): Normal gait present Motor exam (neuro): no tremor noted Extrem Right upper extremity: full ROM Left upper extremity: full ROM Right lower extremity: full ROM; no edema Left lower extremity: full ROM; no edema Psych Mental Status: mental status grossly normal Speech and movement: Normal speech and movement present Affect: normal affect Attitude: cooperative Thought process: Normal thought process present Coding Level of Care Code Est Pt Level 4 (51472) Diagnoses Mixed hyperlipidemia E78.2 Hyperlipidemia type: mixed hyperlipidemia Essential hypertension I10 Hypertension type: essential hypertension Ischemic nephropathy with atherosclerotic renal artery stenosis I70.1 CKD stage 3a, GFR 45-59 ml/min N18.31 Additional Codes CHAPARRO-7 Assessment Billing - CHAPARRO-7 Assessment Tool: CHAPARRO-7 Assessment 44607 ([id number]) PHQ-9 - 75363 - PHQ-9 Billing: Yes ([id number]) Assessment & Plan Assessment & Plan (1) HLD (hyperlipidemia): Code(s): E78.5 - Hyperlipidemia, unspecified Category: Medical Qualifiers: Hyperlipidemia type: mixed hyperlipidemia Qualified Code(s): E78.2 - Mixed hyperlipidemia Plan: Patient's fasting lipid panel under excellent control with current cholesterol- lowering medication. Goal LDL to remain below 130 (2) HTN (hypertension): Code(s): I10 - Essential (primary) hypertension Category: Medical Qualifiers: Hypertension type: essential hypertension Qualified Code(s): I10 - Essential (primary) hypertension Plan: Patient's blood pressure acceptable today in office. He reports that home blood pressures are stable. He otherwise denies being symptomatic with headache, chest discomfort or dizziness. Goal blood pressures to be below 140/90 (3) Ischemic nephropathy with atherosclerotic renal artery stenosis: Code(s): I70.1 - Atherosclerosis of renal artery Category: Medical Plan: Has been found to have renal artery stenosis. He is followed by Nephrology here in [place]. There is consideration to getting a renal artery stent. (4) CKD stage 3a, GFR 45-59 ml/min: Code(s): N18.31 - Chronic kidney disease, stage 3a Category: Medical Plan: Patient continues to follow Nephrology. Most recent renal function excellent with GFR above 60 Orders: Orders Comprehensive [place]. Panel Fast Today N18.31 - Chronic kidney disease, stage 3a Hemoglobin A1c Today R73.01 - Impaired fasting glucose Lipid Panel Today E78.2 - Mixed hyperlipidemia Complete Blood Count no Diff Today E78.2 - Mixed hyperlipidemia Prostate Specific Antigen Scr Today E78.2 - Mixed hyperlipidemia, Z12.5 - Encounter for screening for malignant neoplasm of prostate
--- OUTSIDE RECORDS SUMMARY | 2024-07-16 07:50 | XMS_ITS ---
Author Organization [facility] Address [address] [place] [address] Care Team Providers Care Charge Machine Operator Name Role Phone Jonathan Varghese Primary Care Provider [facility]ailRob [facility] [phone] Encounters Encounter Location Date Provider Diagnosis [facility] [address] [place] [address] 03/07/2023 Rob Jiménez Plan Of Treatment No Information Progress Notes * Kaleb VASQUEZDOB:[birth year] (74 yo M)Acc No.[id number]:03/07/2023 Progress Note Patient:Kaleb HAAS Provider:?Rob Jiménez DPM :1950???Age:72 Y???Sex:Male Silas e:03/07/2023 Address:[address] [place], [place] [id number] Pcp:Jonathan Varghese Subjective: * Chief Complaints: * [...] DPM Date:? 024 Generated for Printi ng/Faxing/eTransmitting on:?07/16/2024 07:49 AM EDT
== END 2024-07-16 08:19 | disposition home or self-care (01) ==
LOC: HO.HMCH 07:41
PROVIDERS: PCP Physician Assistant; Visit Provider Physician Assistant
DX: E78.2 Mixed hyperlipidemia (principal); I10 Essential (primary) hypertension; I70.1 Atherosclerosis of renal artery; N18.31 Chronic kidney disease, stage 3a

== ENCOUNTER → 2024-07-16 07:40 | Outpatient (BNVA) | payer MEDICARE, SELFPAY | PROVIDERS: PCP Physician Assistant; Visit Provider Physician Assistant | DX: I12.9 Hypertensive chronic kidney disease with stage 1 through stage 4 chronic kidney disease, or unspecified chronic kidney disease (principal); N18.31 Chronic kidney disease, stage 3a; E78.5 Hyperlipidemia, unspecified; N40.0 Benign prostatic hyperplasia without lower urinary tract symptoms; M10.9 Gout, unspecified; E78.2 Mixed hyperlipidemia; I70.1 Atherosclerosis of renal artery; R73.01 Impaired fasting glucose; Z82.49 Family history of ischemic heart disease and other diseases of the circulatory system | CPT/HCPCS: 96127; 99212 ==

== ENCOUNTER 2024-07-22 09:30 | Outpatient (REF) | payer MEDICARE, SELFPAY ==
--- OUTSIDE RECORDS SUMMARY | 2024-07-22 10:02 | XMS_ITS ---
Author Organization [facility] Address [address] [place] [address] Care Team Providers Care Volunteer Recruitment Coordinator Name Role Phone Jonathan Varghese Primary Care Provider Unavailab Marky Zhao [phone] REASON FOR VISIT hne on 02-25-2021 Encounters Encounter Location Date Provider Diagnosis [facility] [address] [place] [address] 05/30/2023 Marky Torrez Plan Of Treatment No Information Progress Notes * THONY VASQUEZDOB:[birth year] (72 yo M)Acc No.[id number]:05/30/2023 Patient:?CHRISTINA THONY :1950???Age:72 Y???Sex:Male Address:[address], [place] [facility] [place] [address] * true * Date:? Generated for Briannei soco/Eduardo/eTransmitting on:?07/22/2024 10:02 AM EDT
[2024-07-22 10:41] LABS: Anion Gap 9 (12-20); Blood Urea Nitrogen 13 mg/dL (9-16); Carbon Dioxide 25 mmol/L (22-29); Chloride 111 mmol/L (96-108); Estimated Glomerular Filt Rate > 60; Potassium 4.1 mmol/L (3.3-5.1); Sodium 141 mmol/L (135-145)
== END 2024-07-22 09:31 | disposition home or self-care (01) ==
LOC: HO.10HDL 09:30
PROVIDERS: Visit Provider Internal Medicine Nephrology
DX: N18.31 Chronic kidney disease, stage 3a (principal); I70.1 Atherosclerosis of renal artery; I15.0 Renovascular hypertension
CPT/HCPCS: 36415; 80051; 82565; 84520

== ENCOUNTER 2024-07-25 10:27 | Outpatient (AMB) | payer MEDICARE, SELFPAY ==
[2024-07-25 10:46] VITALS: BP 132/60; BMI 23.9
--- NOTE | 2024-07-25 10:46 | HO.NEPHOV_ITS ---
Vital Signs 07/25/24 10:46 Height 5 ft 9 in Weight 162 lb 2 oz BMI 23.9 BP 132/60 Blood Pressure Location Lt brachial Position Sitting Intake Visit Reasons: 3 MO FU-Conf Equipment Operator/Laborer/Supervisor Required: No Accompanied by: Self / Same As Patient Allergies colchicine Adverse Reaction (Mild, Verified 07/25/24 10:46) Diarrhea HPI Comments Details: I had the pleasure of seeing Kaleb who is a 74 year-old male with elevated blood pressure. His hypertension has been long-standing, with elevated readings both at home and in medical settings, notably spiking to 173/over 90 and 171 over 85. It began to worsen recently, possibly due to increased stress associated with his 's dementia diagnosed a year and a half ago. Due to his 's condition, he experiences stress and anxiety, particularly notable during the holiday season, which he believes contributes to elevated blood pressure. He had taken a range of antihypertensive medications, including carvedilol, lisinopril, hydrochlorothiazide, and verapamil. However, his blood pressure remains elevated despite the current therapeutic regimen. The patient reported discontinuation of triamterene due to insurance issues, which preceded an increase in blood pressure. He has gout which is well controlled with allopurinol. He undwent USS to R/O AAA which showed right renal artery stenosis. He denies CAD, CVA, carotid disease or PAD. He denies taking excess sodium in the diet. He has no PND, orthopnea or edema. His recent serum creatinine is stable [facility] Medical History Peptic ulcer disease Screening for AAA (abdominal aortic aneurysm) Left ear impacted cerumen Gout Surgical History History of cholecystectomy Family History Father No problems noted. Mother No problems noted. 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 Cognitive needs: No Hearing needs: No Vision needs: Yes (Glasses) Review of Systems Const All systems reviewed & are unremarkable except as noted in HPI and below Physical Exam Vital Signs: Last Vital Signs BP 132/60 07/25/24 10:46 BMI result Body Mass Index 23.9 Const General: comfortable and no acute distress Orientation/consciousness: patient oriented x3 HEENT Head: Yes normocephalic Mouth: Normal oral and palatal mucosa present Eyes EOM: EOMs intact bilaterally Neck Neck: Yes supple Resp Auscultation: clear to auscultation bilaterally Cardio Jugular venous distension: no JVD Rate: regular rate GI Palpation (GI): Soft to palpation Auscultation: normal bowel sounds General: Yes no CVA tenderness Back/Spine/Pelvis Back: no CVA tenderness Skin General skin exam: no rashes or lesions noted Neuro General: patient oriented x3 and moves all extremities Extrem General: Yes no pedal edema Results Reviewed Nephrology Results: Hgb 15.4 g/dl (14.0-18.0) 07/12/24 WBC 6.5 X10*3/uL (4.8-10.8) 07/12/24 Plt Count 205 X10*3/uL (160-400) 07/12/24 Sodium 141 mmol/L (135-145) 07/22/24 Potassium 4.1 mmol/L (3.3-5.1) 07/22/24 Chloride 111 mmol/L (96-108) H 07/22/24 Carbon Dioxide 25 mmol/L (22-29) 07/22/24 BUN 13 mg/dL (9-16) 07/22/24 Creatinine 0.92 mg/dL (0.5-1.4) 07/22/24 Calcium 9.8 mg/dL (8.4-10.2) 06/11/24 Urine Creatinine 125.13 mg/dL 06/11/24 Renal US 04/09/24 Assessment & Plan Assessment & Plan (1) Renovascular hypertension: Code(s): I15.0 - Renovascular hypertension Category: Medical (2) Ischemic nephropathy with atherosclerotic renal artery stenosis: Code(s): I70.1 - Atherosclerosis of renal artery Category: Medical (3) CKD stage 3a, GFR 45-59 ml/min: Code(s): N18.31 - Chronic kidney disease, stage 3a Category: Medical Plan Kaleb has CKD and hypertension . He has MARY ALICE and renal ischemia causing ischemic nephropathy which is leading to his CKD. His renal functions are stable. His BP is at goal. he does not need renal angiogram/plasty now. . He should maintain low sodium diet and increase hydration & avoid NSAID's. All these have been explained in detail. F/U labs ordered. Answered all questions. Orders: Orders Electrolytes 6 Months N18.31 - Chronic kidney disease, stage 3a Blood Urea Nitrogen 6 Months N18.31 - Chronic kidney disease, stage 3a Creatinine 6 Months N18.31 - Chronic kidney disease, stage 3a Coding Level of Care Code Est Pt Level 4 (01987) Diagnoses Renovascular hypertension I15.0 Ischemic nephropathy with atherosclerotic renal artery stenosis I70.1 CKD stage 3a, GFR 45-59 ml/min N18.31
--- OUTSIDE RECORDS SUMMARY | 2024-07-25 11:09 | XMS_ITS ---
Author Organization [facility] Address [address] [place] [address] Care Team Providers Care Facilities Plant Engineer Name Role Phone Jonathan Varghese Primary Care Provider Unavailab Marky Zhao [phone] REASON FOR VISIT hne on 02-25-2021 Encounters Encounter Location Date Provider Diagnosis [facility] [address] [place] [address] 05/30/2023 Marky Torrez Plan Of Treatment No Information Progress Notes * THONY VASQUEZDOB:[birth year] (72 yo M)Acc No.[id number]:05/30/2023 Patient:?CHRISTINA THONY :1950???Age:72 Y???Sex:Male Address:[address], [place] [facility] [place] [address] * true * Date:? Generated for Briannei soco/Eduardo/eTransmitting on:?07/25/2024 11:08 AM EDT
== END 2024-07-25 11:22 | disposition home or self-care (01) ==
LOC: HO.HKA 10:28
PROVIDERS: PCP Physician Assistant; Visit Provider Internal Medicine Nephrology
DX: I12.9 Hypertensive chronic kidney disease with stage 1 through stage 4 chronic kidney disease, or unspecified chronic kidney disease (principal); N18.31 Chronic kidney disease, stage 3a; I70.1 Atherosclerosis of renal artery
CPT/HCPCS: 99214

== ENCOUNTER → 2024-07-25 10:27 | Outpatient (BNVA) | payer MEDICARE, SELFPAY | PROVIDERS: PCP Physician Assistant; Visit Provider Internal Medicine Nephrology | DX: I15.0 Renovascular hypertension (principal); I70.1 Atherosclerosis of renal artery; N18.31 Chronic kidney disease, stage 3a | CPT/HCPCS: 99212 ==

== ENCOUNTER 2025-01-19 07:01 | Outpatient (REF) | payer MEDICARE, SELFPAY ==
--- OUTSIDE RECORDS SUMMARY | 2025-01-19 07:08 | XMS_ITS | Clinical Summary ---
Author Organization [facility] Address [address] [address] Phone Care Team Providers Care Sand Molder Name Role Phone Jonathan Varghese Primary Care Provider + Allergies No known active allergies Medications atorvastatin (LIPITOR) 40 MG tablet Take 40 mg by mouth daily. 2 Active carvedilol (COREG) 6.25 MG tablet Take 6.25 mg by mouth 2 (two) times a day. 2 Active lisinopril (PRINIVIL,ZESTR IL) 40 MG tablet Take 40 mg by mouth daily. 2 Active omeprazole (PRILOSEC) 20 MG capsule Take by mouth daily. 2 Active triamterene-hyd roCHLOROthiazid e (DYAZIDE) 37.5-25 mg per capsule Take 1 capsule by mouth daily. 2 Active verapamiL (CALAN-SR) 240 MG CR tablet Take 240 mg by mouth daily. 2 Active albuterol 90 mcg/actuation inhaler INHALE 2 PUFFS EVERY 6 HOURS NEEDED FOR SHORTNESS OF BREATH OR WHEEZING 3 Active indomethacin (INDOCIN SR) 75 mg CR capsule Take 1 capsule (75 mg total) by mouth 2 (two) times a day with meals. 30 capsule 3 Active Additional Information Patient not taking.Reported on 12/02/2024 colchicine (COLCRYS) 0.6 mg tablet Take 1 tablet (0.6 mg total) by mouth 2 (two) times a day. 30 tablet 3 Active Additional Information Patient not taking.Reported on 12/02/2024 allopurinol (ZYLOPRIM) 300 MG tablet Take 1 tablet (300 mg total) by mouth daily. 30 tablet 3 3 Active predniSONE (DELTASONE) 10 MG tablet 4 Active Active Problems No known active problems Encounters Date Type Department Care Team Description 12/02/2024 10:30 AM EDT Occupational Health [facility] at [address] [address] Kimberly Burnett, JOSEPH Encounter for examination required by Department of Transportation (DOT) (Primary Dx) from Last 3 Months Social History Tobacco Use Types Packs/Day Years Used Date Smoking Tobacco: Former Smokeless Tobacco: Never Tobacco Cessation:Counseling Given: Not Answered Education Answer Date Recorded Are you interested in more education? Not on daly e 06/24/2022 Are you concerned about learning? Not on file 06/24/2022 No 06/24/2022 No 06/24/2022 Digital Access Answer Date Recorded No 07/23/2022 No 07/23/2022 Reliable internet access at home? Not on file 07/23/2022 Device with a working camera? Not on file Sex and Gender Information Value Date Recorded Sex Assigned at Not on file Legal Sex Male 12:59 PM EDT Gender Identity Not on file Sexual Orientation Not on file Last Filed Vital Signs Vital Sign Reading Time Taken Comments Blood Pressure 140/70 01/12/2023 9:22 AM EST Pulse 81 12/02/2024 10:41 AM EDT Temperature 36.7 C (98.1 F) 05/26/2024 10:15 AM EDT Respiratory Rate 18 05/26/2024 10:15 AM EDT Oxygen Saturation 100% 12/02/2024 10:41 AM EDT Inhaled Oxygen Concentration - - Weight 72.6 kg (160 lb) 12/02/2024 10:41 AM EDT Height 175.3 cm (5' 9 ) 12/02/2024 10:41 AM EDT Body Mass Index 23.63 12/02/2024 10:41 AM EDT Plan of Treatment Health Maintenance Due Date Last Done Comments CREATININE LEVEL 1950 LIPID PANEL 1950 POTASSIUM LEVEL 1950 DEPRESSION SCREENING 1960 SMOKING Hx and SMOKELESS TOBACCO SCREENING 1961 HEPATITIS C SCREENING 1966 COVID-19 VACCINE (2024- season) 2024 11/06/2023, 12/28/2022, 01/06/2022, Additional history exists Adult Td,Tdap Booster 08/22/2034 08/22/2024, 021 PNEUMOCOCCAL VACCINES (50+ years) Completed 12/04/2018, 12/04/2017 ZOSTER VACCINES Completed 04/27/2019, 02/03/2019 RSV VACCINE Completed 08/22/2024 INFLUENZA VACCINE Completed 10/28/2024, , 12/28/2022, Additional history exists HEPATITIS A VACCINES Aged Out No long er eligible based on patient's age to complete this topic HIB VACCINES Aged Out No longer eligi ble based on patient's age to complete this topic MENINGOCOCCAL VACCINES (ACWY) Aged Out No longer eligible based on patient's age to complete this topic MENINGOCOCCAL VACCINES (B) Aged Out N o longer eligible based on patient's age to complete this topic Medical Devices Not on file Insurance [facility] MEDICARE REPLACEMENT AETNA PPO MEDICARE REPLACEMENT AETNA PPO MEDICARE REPLACEMENT AETNA PPO MEDICARE REPLACEMENT AETNA PPO MEDICARE REPLACEMENT AETNA PPO MEDICARE REPLACEMENT AETNA PPO MEDICARE REPLACEMENT AETNA PPO MEDICARE REPLACEMENT AETNA PPO MEDICARE REPLACEMENT Care Teams Sand Molder Relationship Specialty Start Date End Date Jonathan Varghese PA [address] [place] [address] PCP - General Physician Engineering Coordinator 01/12/23 Additional Source Comments The information contained in this document represents components of the legal health record. It is not the complete legal health record.[facility]
--- OUTSIDE RECORDS SUMMARY | 2025-01-19 07:09 | XMS_ITS | Clinical Summary ---
Author Organization [address] [facility] Address [address] [place] [address] Phone Care Team Providers Care Drum Handler Name Role Phone Unavailable Primary Care Provider [...] nts (1 - 1-dose 75+ series) 06/11/2023 Cholesterol Screening (Lipid Panel) 02/04/2024 Falls Risk Assessment 02/04/2024 Hepatitis C Screening 02/04/2024 Medicare Annual Wellness Visit 02/04/2024 Social Influencers of Health Screening 02/04/2024 Depression Screening 02/27/2024 COVID-19 Vaccine (1 - 2024-2 6 season) 2024 Influenza Vaccine (#1) 2024 HIB Vaccines Aged Out No longer [...]
--- OUTSIDE RECORDS SUMMARY | 2025-01-19 07:09 | XMS_ITS | Patient Health Record ---
Author Organization [facility] Address [address] [place] [address] Care Team Providers Care Engineering Documentation Specialist Name Role Phone Jonathan Varghese Primary Care Provider UnavailMarky Junior Unavailable [phone] Allergies No Known Allergies Reason For Referral No Information Medications Medication SIG (Take, Route, Frequency, Duration) Notes Start Date End Date Status Vitamin D Active Triamterene Active Gemfibrozil Active Lisinopril Active Carvedilol Active Simvastatin Active Verapamil HCl Active Omeprazole 20 MG Capsule Delayed Release TAKE 1 CAPSULE BY MOUTH EVERY DAY; Duration: 90 Active Social History Social History Additional Details Category Social Info Options Details Miscellaneous: Marital status: 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9) Active confirmed Problem Peptic ulcer disease (31540304) Peptic ulcer disease (K27.9) Active confirmed Problem Exposure to Hepatitis B virus (378513119) Exposure to hepatitis B (Z20.5) Active confirmed Encounters Encounter Location Date Provider Diagnosis [facility] [address] [place] [address] 10/30/2024 Marky Torrez Plan Of Treatment Pending Test Test Name Order Date HEPATITIS B PROFILE 06/28/2023 Future Test Test Name Order Date COLONOSCOPY 04/16/2015 Insurance Providers Payer Name Payer Address Payer Phone Subscriber Number Group Number Insured Name Patient Relationship to Insured Coverage Start Date Coverage End Date [facility] [address] [place], [place] [id number] THONY VASQUEZ Self - patient is the insured Medical (General) History Medical History History ICD Code Hypertension Hyperlipidemia Denies MS,DM,CVA,Lung disease,renal dise ase Colonoscopy in [address] Johnson--negat nicko for polyps Neg. screening colonoscopy in 05/2015 EGD in 10/2009--this revealed a mild distal esophageal ring which was dilated, gastric and duodenal ulcers,, and gastric biopsies that were negative for H. pylori Surgical History Surgery Date(Month/Year) Cholecystectomy
--- OUTSIDE RECORDS SUMMARY | 2025-01-19 07:09 | XMS_ITS | Patient Health Record ---
Author Organization [facility] Address [address] [place] [address] Care Team Providers Care Gas Turbine Powerplant Mechanic Helper Name Role Phone Jonathan Varghese Primary Care Provider Unavailab Rob Gordillo Unavailable [phone] Allergies No Known Allergies Reason For Referral No Information Medications Medication SIG (Take, Route, Frequency, Duration) Notes Start Date End Date Status Vitamin D3 Super Strength 50 MCG (1999) 1 tablet Orally Once a day; Duration: 30 day(s) Active Triamterene-HCTZ 37.5-25 MG 1 tablet in the morning Orally Once a day; Duration: 30 day(s) Active Omeprazole 20 MG 1 capsule 30 minutes before morning meal Orally Once a day; Duration: 30 day(s) Active Lisinopril 40 MG 1 tablet Orally Once a day; Duration: 30 day(s) Active Colcrys 0.6 MG 1 tablet Orally Up t o Four times a day; Duration: 05 days 05/24/2023 Active Carvedilol 6.25 MG 1 tablet with food O rally Twice a day; Duration: 30 day(s) Active Atorvastatin Calcium 40 MG 1 tablet Oral ly Once a day; Duration: 30 day(s) Active Colcrys 0.6 MG 1 tablet Orally once a day; Duration: 10 days 03/15/2022 Active Verapamil HCl ER 240 MG 1 tablet Orally Once a day; Duration: 30 day(s) Active Immunizations Vaccine Route Administration Date Status Comme nts Influenza Unknown 11/26/2021 Administered COVID-19 Pfizer BioNTech Vaccine Unknown 01/06/2022 Administered 1 Social History Tobacco Use: Social History Observation [...] Status Risk Notes Problem Acquired hallux valgus (88423693) Hallux valgus (acquired), left foot (M20.12) Active confirmed Problem Primary gout (20459475) Idiopathic gout, 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
--- OUTSIDE RECORDS SUMMARY | 2025-01-19 07:09 | XMS_ITS | Encounter Summary ---
Author Organization [facility] Address [address] [place] [address] Care Team Providers Care Brain Surgeon Name Role Phone Unavailable Primary Care Provider Unavailabl e Encounter Details Date Type Department Care Team (Late st Contact Info) Description 02/04/2024 Lab Requisition [facility] - Main Lab [address] [facility] [place] [address] Junito Conley MD [address] [address] Asymptomatic microscopic hematuria Social History Tobacco Use [...] high-grade urothelial carcinoma. 02/15/2024 5:54 PM EST [facility] Clinical Information [id number] Urine cytology w/reflex UroVysion. 02/15/2024 5:54 PM EST [facility] Gross Description A. Urine, Voided, : [id number] recd 1 TP slide. 02/15/2024 5:54 PM EST [facility] Disclaimer Unless otherwise specified, all tissue is 10% NB formalin fixed and paraffin embedded. Technical pathology services provided by [facility] [address] [facility] [address] [place] [address] (CLIA #[id number]/S edilma Loco MD, Crack Off Person) 02/15/2024 5:54 PM EST [facility] Tissue Urine specimen from urethra / Unknown 01/30/2024 02/04/2024 9:24 AM EST us Junito Conley MD LAB PATHOLOGY ORDERABLES Fi nal Result [facility] [address] [place] [address], documented in this encounter Visit Diagnoses Diagnosis Asymptomatic microscopic hematuria documented in this encounter
[2025-01-19 08:11] LABS: Hematocrit 46.3 % (42.0-52.0); Hemoglobin 15.7 g/dl (14.0-18.0); Mean Corpuscular HGB Conc 33.9 g/dl (31.0-36.0); Mean Corpuscular Hemoglobin 32.5 pg (27.0-33.0); Mean Corpuscular Volume 95.9 fL (80.0-98.0); NRBC Abs Auto 0.000 X10*3/uL (0.0-0.012); NRBC Pct Auto 0.0 /100WBC (0.0-0.2); Platelet Count 209 X10*3/uL (160-400); Red Blood Count 4.83 X10*6/uL (4.60-5.80); White Blood Count 6.9 X10*3/uL (4.8-10.8)
[2025-01-19 08:46] LABS: Alanine Aminotransferase 25 U/L (0-40); Albumin Level 4.2 g/dL (3.5-5.0); Alkaline Phosphatase 111 U/L (39-117); Anion Gap 10 (12-20); Aspartate Amino Transferase 34 U/L (5-37); Blood Urea Nitrogen 13 mg/dL (9-16); Calcium 9.5 mg/dL (8.4-10.2); Carbon Dioxide 27 mmol/L (22-29); Chloride 110 mmol/L (96-108); Cholesterol 125 mg/dL (<200); Estimated Glomerular Filt Rate > 60; HDL Cholesterol 38 mg/dL (>40); Potassium 4.2 mmol/L (3.3-5.1); Sodium 143 mmol/L (135-145); Total Protein 6.8 g/dL (6.5-8.0); Triglycerides 145 mg/dL (<150)
== END 2025-01-19 07:02 | disposition home or self-care (01) ==
LOC: HO.LAB 07:01
PROVIDERS: Absent Provider Internal Medicine Nephrology; PCP Physician Assistant; Visit Provider Physician Assistant
DX: N18.31 Chronic kidney disease, stage 3a (principal); E78.2 Mixed hyperlipidemia; R73.01 Impaired fasting glucose; Z12.5 Encounter for screening for malignant neoplasm of prostate
CPT/HCPCS: 36415; 80053; 80061; 83036; 84153; 85027

== ENCOUNTER 2025-01-21 07:39 | Outpatient (AMB) | payer MEDICARE, SELFPAY ==
--- OUTSIDE RECORDS SUMMARY | 2025-01-21 07:45 | XMS_ITS | Patient Health Record ---
Author Organization [facility] Address [address] [place] [address] Care Team Providers Care Radio Operator Name Role Phone Jonathan Varghese Primary Care Provider UnavailRob Mares Unavailable [phone] Allergies No Known Allergies Reason For Referral [...] Status Risk Notes Problem Acquired hallux valgus (55408884) Hallux valgus (acquired), left foot (M20.12) Active confirmed Problem Primary gout (36546454) Idiopathic gout, left ankle and foot (M10.072) Active confirmed Problem Acquired hammer toe of right foot ([id number] 105) Acquired hammer toe of right foot (M20.41) Active confirmed Problem Gouty arthritis (21344941) Gouty arthritis (M10.9) Active confirmed Plan Of [...] Date Coverage End Date [employer] GENNARO [place] [id number] [place] [phone] [id number] Kaleb Ponce Self - patient is the insured Medical (General) History Medical History History ICD Code Gall bladder problems High blood pressure Surgical History Surgery Date(Month/Year) gall bladder
--- OUTSIDE RECORDS SUMMARY | 2025-01-21 07:45 | XMS_ITS | Encounter Summary ---
Author Organization [facility] Address [address] [place] [address] Care Team Providers Care Wrestling Coach Name Role Phone Unavailable Primary Care Provider Unavailabl e Encounter Details Date Type Department Care Team (Late st Contact Info) Description 02/04/2024 Lab Requisition [facility] - Main [facility] [address] [facility] [place] [address] Junito Conley MD [address] [address] Asymptomatic microscopic hematuria Social History Tobacco Use [...] high-grade urothelial carcinoma. 02/15/2024 5:54 PM EST [facility] Clinical Information [id number] Urine cytology w/reflex UroVysion. 02/15/2024 5:54 PM EST [facility] Gross Description A. Urine, Voided, : [id number] recd 1 TP slide. 02/15/2024 5:54 PM EST [facility] Disclaimer Unless otherwise specified, all tissue is 10% NB formalin fixed and paraffin embedded. Technical pathology services provided by [facility] [address] [facility] [address] [place] [address] (CLIA #[id number]/S edilma Loco MD, Meat Grinder) 02/15/2024 5:54 PM EST [facility] Tissue Urine specimen from urethra / Unknown 01/30/2024 02/04/2024 9:24 AM EST us Junito Conley MD LAB PATHOLOGY ORDERABLES Fi nal Result [facility] [address] [place] [address], documented in this encounter Visit Diagnoses Diagnosis Asymptomatic microscopic hematuria documented in this encounter
--- OUTSIDE RECORDS SUMMARY | 2025-01-21 07:45 | XMS_ITS | Clinical Summary ---
Author Organization [facility] Address [address] [address] Phone Care Team Providers Care High Lead Yarder Name Role Phone Jonathan Varghese Primary Care [...] Description 12/02/2024 10:30 AM EDT Occupational Health [facility] at [address] [address] Kimberly Burnett, JOSEPH Encounter for examination required [...] topic Medical Devices Not on file Insurance [facility] MEDICARE REPLACEMENT AETNA PPO MEDICARE REPLACEMENT AETNA PPO MEDICARE REPLACEMENT AETNA PPO MEDICARE REPLACEMENT AETNA PPO MEDICARE REPLACEMENT AETNA PPO MEDICARE REPLACEMENT AETNA PPO MEDICARE REPLACEMENT AETNA PPO MEDICARE REPLACEMENT AETNA PPO MEDICARE REPLACEMENT Care Teams High Lead Yarder Relationship Specialty Start Date End Date Jonathan Varghese PA [address] [place] [address] PCP - General Physician Professor In Family Studies 01/12/23 Additional Source Comments The information contained in this document represents components of the legal health record. It is not the complete legal health record.[facility]
--- OUTSIDE RECORDS SUMMARY | 2025-01-21 07:45 | XMS_ITS | Patient Health Record ---
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; no sig alchol Nonsmoker; no sig alchol Problems Problem Type SNOMED Code ICD Code Onset Dates Problem Status W/U Status Risk Notes Problem Screening for malignant neoplasm of colon (254520000) Encounter for screening for malignant neoplasm of colon (Z12.11) Active confirmed Problem Screening for malignant neoplasm of rectum (790857246) Encounter for screening for malignant neoplasm of rectum (Z12.12) Active confirmed Problem Gastroesophageal reflux disease without esophagitis (068231295) Gastroesophageal reflux disease without esophagitis (K21.9) Active confirmed Problem Peptic ulcer disease (17146560) Peptic ulcer disease (K27.9) Active confirmed Problem Exposure to Hepatitis B virus (254732908) Exposure to hepatitis B (Z20.5) Active confirmed Encounters Encounter Location Date Provider Diagnosis [facility] [address] [place] [address] 10/30/2024 Marky Torrez Plan Of Treatment Pending Test Test Name Order Date HEPATITIS B PROFILE 06/28/2023 Future Test Test Name Order Date COLONOSCOPY 04/16/2015 Insurance Providers Payer Name Payer Address Payer Phone Subscriber Number Group Number Insured Name Patient Relationship to Insured Coverage Start Date [facility]age End Date [facility] [address] [place], [place] [id number] THONY VASQUEZ Self - patient is the [...]
--- OUTSIDE RECORDS SUMMARY | 2025-01-21 07:45 | XMS_ITS | Clinical Summary ---
Author Organization [address] [facility] Address [address] [place] [address] Phone Care Team Providers Care Pneumatic Jack Operator Name Role Phone Unavailable Primary Care [...]
--- NOTE | 2025-01-21 08:04 | MHC.PC.OV ---
Vital Signs 01/21/25 08:05 Height 5 ft 9 in Weight 160 lb 6 oz BMI 23.7 BP 144/70 H Blood Pressure Location Lt brachial Position Sitting Pulse 80 Pulse Source Pulse Oximeter Temp 97.3 F Temp Source Temporal Artery Scan Pulse Oximetry (%) 98 Oxygen Delivery Method Room Air Intake Visit Reasons: f/u HTN / HLD Intake Note: Patient is here to follow up on HTN, HLD. Quarrying Specialist Required: No Basket Machine Operator: Not Required per policy Accompanied by: Self / Same As Patient Allergies colchicine Adverse Reaction (Mild, Verified 01/21/25 08:10) Diarrhea Medication List - Last Reconciled 01/21/25 by Jonathan Varghese PA-C allopurinol 300 mg PO DAILY 90 days atorvastatin 40 mg PO DAILY 90 days carvedilol 12.5 mg PO BID cholecalciferol (vitamin D3) 250 mcg PO DAILY lisinopril 40 mg PO DAILY 90 days omeprazole 20 mg PO DAILY verapamil ER 240 mg PO DAILY Tobacco use date assessed: 01/21/25 Fall risk assessment: No Falls in past year Last assessed Fall Risk: 01/21/25 Dental Screening Dental Screen Date: 01/21/25 Did you have a dental visit in the last 12 months?: Yes Did you have a dental problem in the last 6 months where you did not have access to dental care?: No Was dental information given to patient?: Patient has dentist HPI f/u HTN / HLD HPI Details Patient is a 74-year-old male here today for follow-up visit.? Patient has a past medical history significant for hypertension, hyperlipidemia, gout, family history of coronary artery disease, BPH. . Hypertension:? Blood pressure slightly elevated today in office, does have an element of white coat hypertension.. He reports that home blood pressures are quite stable 120-130 systolic. Denies any headaches, vision issues, chest discomforts. .. Renal artery stenosis: Has a ischemic nephropathy. Has followed up with his online activist is considering stenting the renal artery. Most recent renal function stable. .. BPH: Most recent PSA slightly elevated 4.3. ? Patient is followed by Urology and gets his PSA checked any yearly basis.. He does report having history benign microscopic hematuria .. :Gout: he reports his gout about has resolved with the addition of allopurinol.. He does report it has been getting better. He is not hindered in any way. Patient continues on allopurinol on a daily basis. .. Hyperlipidemia:? Patient's most recent lipid panels showing acceptable total cholesterol and LDL.? Continues to have low HDL.? He reports he continues to ride his bike as his main form of physical activity.? Continues on statin therapy without side effect. Laboratory Tests 01/11/24 01/19/25 09:38 07:20 RBC 4.83 Hgb 15.7 Creatinine 0.97 Hemoglobin A1c % 5.2 Cholesterol 125 LDL Cholesterol, C alc 58 PSA Screen 3.33 4.63 H [facility] Medical History Peptic ulcer disease Screening for AAA (abdominal aortic aneurysm) Left ear impacted cerumen Gout Surgical History History of cholecystectomy Family History Father No problems noted. Mother No problems noted. 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 1. Little interest or pleasure in doing things: not at all 2. Feeling down, depressed, or hopeless: not at all 3. Trouble falling or staying asleep, or sleeping too much: not at all 4. Feeling tired or having little energy: not at all 5. Poor appetite or overeating: not at all 6. Feeling bad about yourself - or that you are a failure or have let yourself or your family down: not at all 7. Trouble concentrating on things, such as reading the newspaper or watching television: not at all 8. Moving or speaking so slowly that other people could have noticed. Or the opposite - being so fidgety or restless that you have been moving around a lot more than usual: not at all 9. Thoughts that you would be better off or of hurting yourself in some way: not at all Total score: 0 Depression Screening Interpretation: Negative Depression Screening Done: Yes 98908 - PHQ-9 Billing: Patient declined-do not bill Source: Developed by Drs. Marky Giles, Helene Beebe, Kong Simpson and colleagues, with an educational sweetie from [employer]. Thrive Questionnaire Date Thrive assessed: 07/16/24 I am a: Patient What is your living situation today?: I have a steady place to live Within the past 12 months, did the food you bought not last and you didn't have the money to get more?: Never true Within the past 12 months, did you worry whether your food would run out before you got money to buy more?: Never true Do you have trouble paying for medicines?: No Do you have trouble getting transportation to medical appointments?: No Do you have trouble paying your heating and electricity bill?: No Do you have trouble taking care of your child, family member or friend?: No Do you have trouble with day-to-day activities such as bathing, preparing meals, shopping, managing finances, etc.?: No Are you currently unemployed and looking for a job?: No Are you interested in more education?: No Please select the resources that you would like help with: None Currently or been in a relationship where the following occur: No concerns reported THRIVE Score: 0 AUDIT C Alcohol Use Questionnaire (AUDIT-C) 1. How often do you have a drink containing alcohol?: 2-4 times a month 2. How many drinks containing alcohol do you have on a typical day when you are drinking?: 1 or 2 3. How often do you have six or more drinks on one occasion?: Never Total Score: 2 CHAPARRO-7 AMB Questionnaire CHAPARRO-7 Date CHAPARRO - 7 assessed: 07/16/24 Feeling nervous, anxious, or on edge: 0 = Not at all Not being able to stop or control worryin = Not at all Worrying too much about different things: 1 = Several days Trouble relaxin = Not at all Being so restless that it is hard to sit still: 0 = Not at all Becoming easily annoyed or irritable: 1 = Several days Feeling afraid as if something awful might happen: 0 = Not at all Total CHAPARRO-7 score (0-4 normal; 5-9 mild; 10-14 moderate; 15-21 severe): 2 Source: Developed by Drs. Marky Giles, Helene Beebe, Kong Simpson and colleagues, with an educational sweetie from [employer]. CHAPARRO-7 Assessment Billing CHAPARRO-7 Assessment Tool: CHAPARRO-7 Assessment 30568 Review of Systems Const Denies headache(s) Eyes Denies loss of vision ENT Denies vertigo, Denies dizziness, Denies headache(s) and Denies sore throat Card Denies chest pain, Denies leg edema and Denies lightheadedness Resp Denies cough, Denies hemoptysis and Denies wheezing GI Denies abdominal pain, Denies melena, Denies constipation, Denies diarrhea and Denies vomiting Denies dysuria, Denies urinary frequency and Denies urinary urgency Musc Denies arthralgias, Denies joint swelling, Denies numbness and Denies tingling Neuro Denies Abnormal speech present, Denies behavioral changes, Denies vertigo, Denies dizziness, Denies headache(s), Denies loss of vision, Denies memory loss, Denies numbness and Denies tingling Psych Denies anxiety, Denies behavioral changes, Denies depression, Denies memory loss and Denies panic attacks Frankie/Lymph Denies easy bleeding and Denies easy bruising Aller/Immun Denies wheezing Physical exam (Primary Care) Vital Signs: Last Vital Signs Temp 97.3 F 01/21/25 08:05 Pulse 80 01/21/25 08:05 BP 144/70 H 01/21/25 08:05 Pulse Ox 98 01/21/25 08:05 Oxygen Delivery Method Room Air 01/21/25 08:05 BMI result Body Mass Index 23.7 Tobacco/Smoking Status: Tobacco use Status Tobacco use date assessed 01/21/25 01/21/25 08:05 Patient Tobacco Use Status Never used Tobacco 01/21/25 08:05 Tobacco use type Cigarette 01/21/25 08:05 e-Cigarette/Vaping Use Never Used 01/21/25 08:05 PHQ-9: PHQ-9 Score PHQ-9: Total score 0 01/21/25 08:08 Depression Screening Interpretation: Negative Thrive Assessment: Date of Thrive Assessment Date Thrive assessed 07/16/24 01/21/25 08:05 Currently or been in a relationship where the following occur: No concerns reported Const General: healthy appearing, no acute distress, alert and awake Nutritional Appearance: well nourished Orientation/consciousness: oriented to person, oriented to place and oriented to time HENMT Ears: TM's normal bilaterally General nose exam: Normal nasal mucous membranes and turbinates present Eyes Conjunctivae: conjunctivae normal Sclerae: sclerae normal Pupils: Equal, round and reactive pupils present Neck Neck: Yes no lymphadenopathy and Yes no JVD Thyroid: Thyroid normal Carotids: no bruits Resp Effort & Inspection: normal respiratory effort and not tachypneic Auscultation: no crackles, no rales, no rhonchi and no wheezes Cardio Rate: regular rate Rhythm: regular rhythm Heart sounds: no murmurs and normal S1 and S2 GI Palpation (GI): Soft to palpation, nontender, no hepatomegaly and no splenomegaly Auscultation: normal bowel sounds Skin General skin exam: no rashes or lesions noted and dry skin Neuro General: oriented to person, oriented to place and oriented to time Cranial nerves: Yes Equal, round and reactive pupils present Speech: No Abnormal speech present Gait exam (Neuro): Normal gait present Motor exam (neuro): no tremor noted Extrem Right upper extremity: full ROM Left upper extremity: full ROM Right lower extremity: full ROM; no edema Left lower extremity: full ROM; no edema Psych Mental Status: mental status grossly normal Speech and movement: Normal speech and movement present Affect: normal affect Attitude: cooperative Thought process: Normal thought process present Coding Level of Care Code Est Pt Level 4 (73552) Diagnoses Mixed hyperlipidemia E78.2 Hyperlipidemia type: mixed hyperlipidemia Essential hypertension I10 Hypertension type: essential hypertension Ischemic nephropathy with atherosclerotic renal artery stenosis I70.1 CKD stage 3a, GFR 45-59 ml/min N18.31 Elevated PSA R97.20 Additional Codes CHAPARRO-7 Assessment Billing - CHAPARRO-7 Assessment Tool: CHAPARRO-7 Assessment 35988 ([id number]) Assessment & Plan Assessment & Plan (1) HLD (hyperlipidemia): Code(s): E78.5 - Hyperlipidemia, unspecified Category: Medical Qualifiers: Hyperlipidemia type: mixed hyperlipidemia Qualified Code(s): E78.2 - Mixed hyperlipidemia Plan: Patient's fasting lipid panel under excellent control with current cholesterol-lowering medication. Goal LDL to remain below 130 (2) HTN (hypertension): Code(s): I10 - Essential (primary) hypertension Category: Medical Qualifiers: Hypertension type: essential hypertension Qualified Code(s): I10 - Essential (primary) hypertension Plan: Patient's blood pressure slightly elevated today in office, usually has a bit of white coat hypertension. He reports that home blood pressures are stable. He otherwise denies being symptomatic with headache, chest discomfort or dizziness. Goal blood pressures to be below 140/90 (3) Ischemic nephropathy with atherosclerotic renal artery stenosis: Code(s): I70.1 - Atherosclerosis of renal artery Category: Medical Plan: Has been found to have renal artery stenosis. He is followed by Nephrology here in [place]. Most recent renal function stable. There is consideration to getting a renal artery stent. (4) CKD stage 3a, GFR 45-59 ml/min: Code(s): N18.31 - Chronic kidney disease, stage 3a Category: Medical Plan: Patient continues to follow Nephrology. Most recent renal function excellent with GFR above 60 (5) Elevated PSA: Code(s): R97.20 - Elevated prostate specific antigen [PSA] Category: Medical Plan: Noted slightly elevated PSA at 4.3, will be following up with Urology next month. Has had a prostate biopsy many years ago. Otherwise denies any significant urinary symptoms. Orders: Orders Comprehensive [place]. Panel Fast Today I10 - Essential (primary) hypertension Uric Acid Today M1A.0710 - Idiopathic chronic gout, right ankle and foot, without tophus (tophi) Lipid Panel Today E78.2 - Mixed hyperlipidemia Microalbumin, Random (w Creat) Today I10 - Essential (primary) hypertension Complete Blood Count no Diff Today I10 - Essential (primary) hypertension Patient Instructions: Goal: Blood pressure to be below 140/90 at home, LDL to remain below 100 Barriers: Adherence to physical activity and healthy eating habits
[2025-01-21 08:05] VITALS: BP 144/70; PULSE 80; TEMP 36.3; O2SAT 98; BMI 23.7
== END 2025-01-21 08:29 | disposition home or self-care (01) ==
LOC: HO.HMCH 07:40
PROVIDERS: PCP Physician Assistant; Visit Provider Physician Assistant
DX: E78.2 Mixed hyperlipidemia (principal); I10 Essential (primary) hypertension; I70.1 Atherosclerosis of renal artery; N18.31 Chronic kidney disease, stage 3a; R97.20 Elevated prostate specific antigen [PSA]

== ENCOUNTER → 2025-01-21 07:39 | Outpatient (BNVA) | payer MEDICARE, SELFPAY | PROVIDERS: PCP Physician Assistant; Visit Provider Physician Assistant | DX: I15.0 Renovascular hypertension (principal); I70.1 Atherosclerosis of renal artery; E78.2 Mixed hyperlipidemia; R97.20 Elevated prostate specific antigen [PSA]; M1A.0710 Idiopathic chronic gout, right ankle and foot, without tophus (tophi) | CPT/HCPCS: 96127; 99212 ==

== ENCOUNTER 2025-01-21 13:16 | Outpatient (AMB) | payer MEDICARE, SELFPAY ==
[2025-01-21 13:30] VITALS: BP 130/70; PULSE 68; O2SAT 96; BMI 23.8
--- NOTE | 2025-01-21 13:30 | HO.NEPHOV ---
Vital Signs 01/21/25 13:30 Height 5 ft 9 in Weight 161 lb 4 oz BMI 23.8 BP 130/70 Blood Pressure Location Lt brachial Position Sitting Pulse 68 Pulse Source Pulse Oximeter Pulse Oximetry (%) 96 Oxygen Delivery Method Room Air Intake Visit Reasons: 6 MO FU-Conf Home Hospice Aide Required: No Accompanied by: Self / Same As Patient Allergies colchicine Adverse Reaction (Mild, Verified 01/21/25 13:30) Diarrhea HPI Comments Details: I had the pleasure of seeing Kaleb who is a 74 year-old male with elevated blood pressure. His hypertension has been long-standing but has been dealing with increased stress associated with his 's dementia diagnosed some time ago. Due to his 's condition, he experiences stress and anxiety, particularly notable during the holiday season, which he believes contributes to elevated blood pressure. He had taken a range of antihypertensive medications, including carvedilol, lisinopril, hydrochlorothiazide, and verapamil. He has gout which is well controlled with allopurinol. He undwent USS to R/O AAA which showed right renal artery stenosis. He denies CAD, CVA, carotid disease or PAD. He denies taking excess sodium in the diet. He has no PND, orthopnea or edema. His recent serum creatinine has been stable [facility] Medical History Peptic ulcer disease Screening for AAA (abdominal aortic aneurysm) Left ear impacted cerumen Gout Surgical History History of cholecystectomy Family History Father No problems noted. Mother No problems noted. 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 Cognitive needs: No Hearing needs: No Vision needs: Yes (Glasses) Review of Systems Const All systems reviewed & are unremarkable except as noted in HPI and below Physical Exam Const General: comfortable and no acute distress Orientation/consciousness: patient oriented x3 HEENT Head: Yes normocephalic Mouth: Normal oral and palatal mucosa present Eyes EOM: EOMs intact bilaterally Neck Neck: Yes supple Resp Auscultation: clear to auscultation bilaterally Cardio Jugular venous distension: no JVD Rate: regular rate GI Palpation (GI): Soft to palpation Auscultation: normal bowel sounds General: Yes no CVA tenderness Back/Spine/Pelvis Back: no CVA tenderness Skin General skin exam: no rashes or lesions noted Neuro General: patient oriented x3 and moves all extremities Extrem General: Yes no pedal edema Results Reviewed Nephrology Results: Hgb, (14.0-18.0) 15.7 g/dl 01/19/25 WBC, (4.8-10.8) 6.9 X10*3/uL 01/19/25 Plt Count, (160-400) 209 X10*3/uL 01/19/25 Sodium, (135-145) 143 mmol/L 01/19/25 Potassium, (3.3-5.1) 4.2 mmol/L 01/19/25 Chloride, (96-108) 110 mmol/L H 01/19/25 Carbon Dioxide, (22-29) 27 mmol/L 01/19/25 BUN, (9-16) 13 mg/dL 01/19/25 Creatinine, (0.5-1.4) 0.97 mg/dL 01/19/25 Calcium, (8.4-10.2) 9.5 mg/dL 01/19/25 Urine Creatinine 125.13 mg/dL 06/11/24 Renal US 04/09/24 Assessment & Plan Assessment & Plan (1) Renovascular hypertension: Code(s): I15.0 - Renovascular hypertension Category: Medical Plan Kaleb has CKD and hypertension . He has MARY ALICE and renal ischemia causing ischemic nephropathy which is leading to his CKD. His renal functions are stable. His BP is at goal. he does not need renal angiogram/plasty now . He should maintain low sodium diet and increase hydration & avoid NSAID's. All these have been explained in detail. F/U labs ordered. Answered all questions. Coding Level of Care Code Est Pt Level 4 (09029) Diagnoses Renovascular hypertension I15.0
--- OUTSIDE RECORDS SUMMARY | 2025-01-21 16:23 | XMS_ITS | Encounter Summary ---
Author Organization [employer] [facility] Address [address] [place] [address] Care Team Providers Care Demo Specialist Name Role Phone Unavailable Primary Care Provider Unavailabl e Encounter Details Date Type Department Care Team (Late st Contact Info) Description 02/04/2024 Lab Requisition [facility] - Main Lab [address] [facility] [place] [address] Junito Conley MD [address] [address] Asymptomatic microscopic hematuria Social History Tobacco Use [...] high-grade urothelial carcinoma. 02/15/2024 5:54 PM EST [facility] Clinical Information [id number] Urine cytology w/reflex UroVysion. 02/15/2024 5:54 PM EST [facility] Gross Description A. Urine, Voided, : [id number] recd 1 TP slide. 02/15/2024 5:54 PM EST [facility] Disclaimer Unless otherwise specified, all tissue is 10% NB formalin fixed and paraffin embedded. Technical pathology services provided by [facility] at [address] [facility] [address] [place] [address] (CLIA #[id number]/S edilma Loco MD, Law Tutor) 02/15/2024 5:54 PM EST [facility] Tissue Urine specimen from urethra / Unknown 01/30/2024 02/04/2024 9:24 AM EST us Junito Conley MD LAB PATHOLOGY ORDERABLES Fi nal Result [facility] [address] [place] [address], documented in this encounter Visit Diagnoses Diagnosis Asymptomatic microscopic hematuria documented in this encounter
--- OUTSIDE RECORDS SUMMARY | 2025-01-21 16:23 | XMS_ITS | Clinical Summary ---
Author Organization [address] [facility] Address [address] [place] [address] Phone Care Team Providers Care Architect Manager Name Role Phone Unavailable Primary Care Provider [...]
--- OUTSIDE RECORDS SUMMARY | 2025-01-21 16:23 | XMS_ITS | Clinical Summary ---
Author Organization [facility] Address [address] [address] Phone Care Team Providers Care Sex Offender Treatment Professional Name Role Phone Jonathan Varghese Primary Care [...] Description 12/02/2024 10:30 AM EDT Occupational Health [facility] at [address] [address] Kimberly Burnett, JOSEPH Encounter for examination required [...] topic Medical Devices Not on file Insurance [facility] MEDICARE REPLACEMENT [employer] PPO MEDICARE REPLACEMENT [employer] PPO MEDICARE REPLACEMENT [employer] PPO MEDICARE REPLACEMENT [employer] PPO MEDICARE REPLACEMENT [employer] PPO MEDICARE REPLACEMENT [employer] PPO MEDICARE REPLACEMENT [employer] PPO MEDICARE REPLACEMENT [employer] PPO MEDICARE REPLACEMENT Care Teams Sex Offender Treatment Professional Relationship Specialty Start Date End Date Jonathan Varghese PA [address] [place] [address] PCP - General Physician Ice Cream Server 01/12/23 Additional Source Comments The information contained in this document represents components of the legal health record. It is not the complete legal health record.[facility]
== END 2025-01-21 13:44 | disposition home or self-care (01) ==
LOC: HO.HKA 13:16
PROVIDERS: PCP Physician Assistant; Visit Provider Internal Medicine Nephrology
DX: I15.0 Renovascular hypertension (principal)
CPT/HCPCS: 99214